=== PATIENT | male | born 1940 | race Caucasian/White ===

== ENCOUNTER 2017-03-08 13:47 | Emergency (ER) | payer MEDICARE, BC ==
--- NOTE | 2017-03-08 14:37 | EDM.PDOC ---
[id number] [id number] [facility] Time Seen by Provider: 03/08/17 14:20 Source of Information: Reports: Patient, EMS, Family History Limitations: Reports: No limitations - History of Present Illness INITIAL COMMENTS - FREE TEXT/NARRATIVE: 68-year-old male was on the toilet this morning and developed a very intense lower abdominal pain while trying to have a bowel movement. He then became very lightheaded and dizzy and asked for help from his family. He became very pale and lightheaded and diaphoretic so they called the ambulance. In route he was stable and he now feels fine. Last evening he had a small amount of shoulder discomfort and this morning a headache but those have resolved. He just wants to go home. Onset: sudden Severity: mild Associated Symptoms: Reports: headaches (This morning), malaise, syncope, weakness. Denies: chest pain, cough, fever/chills, nausea/vomiting, shortness of breath - Related Data Allergies Allergy/AdvReac Type Severity Reaction Status Date / Time morphine Allergy Severe Shortness Verified 07/18/16 07:31 of Breath Home Meds: Home Meds Clopidogrel [Plavix] 75 mg PO DAILY 09/14/13 [History] Doxazosin Mesylate 4 mg PO DAILY 09/14/13 [History] FLUoxetine HCl [Fluoxetine HCl] 40 mg PO DAILY 09/14/13 [History] Finasteride [Proscar] 5 mg PO DAILY 09/14/13 [History] Furosemide 20 mg PO DAILY 09/14/13 [History] Lisinopril 2.5 mg PO DAILY 09/14/13 [History] Omeprazole 20 mg PO BID 09/14/13 [History] Tamsulosin HCl 0.4 mg PO DAILY 09/14/13 [History] amLODIPine [Norvasc] 5 mg PO BID 09/14/13 [History] ALPRAZolam [Xanax] 0.25 mg PO TID 30 Days 06/03/14 [Rx] Amantadine [Symmetrel 50 MG/5 ML] 100 mg PO DAILY #2 ml 06/03/14 [Rx] Pramipexole [Mirapex] 0.25 mg PO BEDTIME #2 tab 06/03/14 [Rx] Divalproex Sodium 250 mg PO BID 02/02/15 [History] Carbidopa/Levodopa [Carbidopa-Levo ER 25-100] 1 each PO DAILY 02/04/15 [History] Albuterol Sulfate [Ventolin Hfa] 2 puff INH Q4H PRN 07/14/16 [History] Diazepam [Valium] 5 mg PO Q8H PRN 07/14/16 [History] Docusate Sodium/Sennosides [Senokot-S] 2 tab PO BID PRN 07/14/16 [History] Dutasteride [Avodart] 0.5 mg PO DAILY 07/14/16 [History] Gabapentin [Neurontin] 600 mg PO BID 07/14/16 [History] Simvastatin [Zocor] 40 mg PO DAILY 07/14/16 [History] Solifenacin [Vesicare] 5 mg PO BEDTIME 07/14/16 [History] oxyCODONE 15 mg PO Q6H PRN 07/14/16 [History] Past Medical History HEENT History: Reports: Allergic rhinitis, Hard of hearing, Other (see below) Other HEENT History: difficulty swallowing, tinnitis Cardiovascular History: Reports: Arrhythmia, Bypass, Hypertension Respiratory History: Reports: Asthma Genitourinary History: Reports: Prostate disorder, Renal disease Musculoskeletal History: Reports: Other (see below) Other Musculoskeletal History: "muscle cramps and spasms" Neurological History: Reports: CVA, Headaches, chronic, Parkinson's Psychiatric History: Reports: Anxiety, Depression - Infectious Disease History Infectious Disease History: Reports: Chicken pox, Measles, Mumps - Past Surgical History HEENT Surgical History: Reports: Cataract surgery, Tonsillectomy Cardiovascular Surgical History: Reports: Coronary artery bypass GI Surgical History: Reports: Appendectomy, Cholecystectomy, Colonoscopy, Hernia , inguinal Musculoskeletal Surgical History: Reports: Knee replacement Social & Family History - Family History Family Medical History: Noncontributory - Tobacco Use Smoking Status *Q: Current Every Day Smoker Years of Tobacco use: 15 Packs/Tins Daily: 0.5 Used Tobacco, but Quit: No Month Tobacco Last Used: 05/28/14 Second Hand Smoke Exposure: No - Caffeine Use Caffeine Use: Reports: Coffee - Alcohol Use Days Per Week of Alcohol Use: 0 - Recreational Drug Use Recreational Drug Use: No ED ROS GENERAL - Review of Systems Review Of Systems: See Below Constitutional: Reports: malaise, weakness. Denies: fever, chills HEENT: Reports: No symptoms Respiratory: Denies: Shortness of Breath, Cough Cardiovascular: Reports: Chest pain (He had an upper left anterior chest and shoulder discomfort last evening) GI/Abdominal: Reports: Abdominal pain (Lower abdomen, very sharp intense pain during a bowel movement. He has some chronic recurring right lower quadrant pain from a "hernia") : Reports: no symptoms Skin: Reports: pallor, diaphoresis Neurological: Reports: Headache Psychiatric: Reports: No symptoms ED EXAM, GENERAL - Physical Exam Exam: See Below Exam Limited By: No limitations General Appearance: alert, no apparent distress Eye Exam: bilateral eye: normal inspection Neck: normal inspection Respiratory/Chest: no respiratory distress, lungs clear Cardiovascular: regular rate, rhythm GI/Abdominal: Soft, Tender (He does have a small amount of tenderness to palpation across the lower abdomen but no guarding) Neurological: alert, oriented Psychiatric: normal affect, normal mood Skin Exam: Warm, Dry Course - Vital Signs Last Recorded V/S: Last Vital Signs Temp 97.3 F 03/08/17 13:58 Pulse 55 L 03/08/17 15:26 Resp 12 03/08/17 15:26 BP 164/84 H 03/08/17 15:26 Pulse Ox 94 L 03/08/17 15:26 - Orders/Labs/Meds Labs: Laboratory Tests 03/08/17 03/08/17 Range/Units 14:33 14:33 WBC 8.3 (4.5-11.0) K/uL RBC 4.03 L (4.30-5.90) M/uL Hgb 11.8 L (12.0-15.0) g/dL Hct 35.9 L (40.0-54.0) % MCV 89 (80-98) fL MCH 29 (27-31) pg MCHC 33 (32-36) % Plt Count 241 (150-400) K/uL Neut % (Auto) 70 H (36-66) % Lymph % (Auto) 18 L (24-44) % [place] % (Auto) 9 H (2-6) % Eos % (Auto) 3 (2-4) % Baso % (Auto) 0 (0-1) % Sodium 134 L (140-148) mmol/L Potassium 3.8 (3.6-5.2) mmol/L Chloride 102 (100-108) mmol/L Carbon Dioxide 27 (21-32) mmol/L Anion Gap 8.8 (5.0-14.0) mmol/L BUN 33 H (7-18) mg/dL Creatinine 1.7 H (0.8-1.3) mg/dL Est Cr Clr Drug Dosing 37.07 mL/min Estimated GFR (MDRD) 39 L (>60) Glucose 117 H (74-106) mg/dL Calcium 7.9 L (8.5-10.1) mg/dL Total Bilirubin 0.4 (0.2-1.0) mg/dL AST 18 (15-37) U/L ALT 15 (12-78) U/L Alkaline Phosphatase 59 (46-116) U/L Troponin I < 0.017 (0.000-0.056) ng/mL Total Protein 6.1 L (6.4-8.2) g/dL Albumin 3.2 L (3.4-5.0) g/dL Globulin 2.9 (2.3-3.5) g/dL Albumin/Globulin Ratio 1.1 L (1.2-2.2) - Re-Assessments/Exams Free Text/Narrative Re-Assessment/Exam: 03/08/17 14:36 EMS EKG was reassuring. I explained to the patient he likely had a vasovagal episode but a CBC CMP and troponin were obtained while the patient was being observed. 03/08/17 15:26 He remained asymptomatic and labs were reassuring. Troponin was 0. His GFR was only 39 which is a small worsening for depression kidney function but got a significant change. He ambulated without difficulty and was discharged with a vasovagal near syncopal diagnosis. Departure - Departure Time of Disposition: 15:44 Disposition: Home, Self-Care 01 Condition: good Clinical Impression: Vasovagal near syncope, Abdominal pain, recurrent Chronic renal insufficiency Qualifiers: Chronic kidney disease stage: stage 2 (mild) Qualified Code(s): N18.2 - Chronic kidney disease, stage 2 (mild) - Discharge Information Instructions: Vasovagal Syncope, Adult Referrals: Dallas Dorantes MD [Primary Care Provider] - Forms: ED Department Discharge Care Plan Goals: Continue your regular medications and increase activity and diet as tolerated. Return at any time if you feel you are worsening or have other concerns.
[2017-03-08 15:43] VITALS: BP 164/84
== END 2017-03-08 15:35 | disposition home or self-care (01) ==
LOC: JP.ED 13:47
DX: R55 Syncope and collapse (principal); R10.30 Lower abdominal pain, unspecified; I12.9 Hypertensive chronic kidney disease with stage 1 through stage 4 chronic kidney disease, or unspecified chronic kidney disease; N18.2 Chronic kidney disease, stage 2 (mild); F41.9 Anxiety disorder, unspecified; F32.9 Major depressive disorder, single episode, unspecified; F17.210 Nicotine dependence, cigarettes, uncomplicated; J45.909 Unspecified asthma, uncomplicated; Z79.899 Other long term (current) drug therapy; Z98.49 Cataract extraction status, unspecified eye; Z98.890 Other specified postprocedural states; Z88.5 Allergy status to narcotic agent
CPT/HCPCS: 36415; 80053; 84484; 85025; 99284

== ENCOUNTER 2017-03-25 18:21 | Emergency (ER) | payer MEDICARE, BC ==
[2017-03-25] MEDS ORDERED: Sodium Chloride 0.9% 10 ML Syringe FLUSH PRN (19:35)
[2017-03-25] MEDS ORDERED: Lidocaine 2% Jelly 10 ML Urojet MUCMEM ONE (20:08)
[2017-03-25] MEDS ORDERED: Sodium Chloride 0.9% 1,000 ML IV SCH (21:30)
[2017-03-25 21:38] VITALS: BP 142/75
[2017-03-25] MEDS ORDERED: Iopamidol 612 MG/ML 100 ML Bottle IV STA (21:56)
[2017-03-25] MEDS ORDERED: oxyCODONE 5 MG Tab PO ONE (22:57)
[2017-03-25] MEDS ORDERED: cefTRIAXone 1 GM in Sodium Chloride 0.9% 50 ML IV ONE (23:51)
--- NOTE | 2017-03-26 01:18 | EDM.PDOC ---
ED HPI GENERAL MEDICAL PROBLEM - General Chief Complaint: General Stated Complaint: IN SEVER PAIN Time Seen by Provider: 03/25/17 19:36 Source of Information: Reports: Patient History Limitations: Reports: No Limitations - History of Present Illness INITIAL COMMENTS - FREE TEXT/NARRATIVE: This patient's complaints were not entirely clear. He does seem to have some fever and says he just doesn't feel very good today. He's had a cough for a couple of weeks. He also has a history of some difficulties urinating but doesn 't complain of burning on urination. He does complain of some pain in the right lower quadrant around an old hernia incision. He denies any chest pain or palpitations there's no shortness of breath. The cough is nonproductive no problems with eyes ears nose or throat at other times he says he feels pretty good Generalized Pain Score (Numeric/FACES): 6 - Related Data Allergies Allergy/AdvReac Type Severity Reaction Status Date / Time morphine Allergy Severe Shortness Verified 07/18/16 07:31 of Breath Home Meds: Home Meds Clopidogrel [Plavix] 75 mg PO DAILY 09/14/13 [History] Doxazosin Mesylate 4 mg PO DAILY 09/14/13 [History] FLUoxetine HCl [Fluoxetine HCl] 40 mg PO DAILY 09/14/13 [History] Finasteride [Proscar] 5 mg PO DAILY 09/14/13 [History] Furosemide 20 mg PO DAILY 09/14/13 [History] Lisinopril 2.5 mg PO DAILY 09/14/13 [History] Omeprazole 20 mg PO BID 09/14/13 [History] Tamsulosin HCl 0.4 mg PO DAILY 09/14/13 [History] amLODIPine [Norvasc] 5 mg PO BID 09/14/13 [History] ALPRAZolam [Xanax] 0.25 mg PO TID 30 Days 06/03/14 [Rx] Amantadine [Symmetrel 50 MG/5 ML] 100 mg PO DAILY #2 ml 06/03/14 [Rx] Pramipexole [Mirapex] 0.25 mg PO BEDTIME #2 tab 06/03/14 [Rx] Divalproex Sodium 250 mg PO BID 02/02/15 [History] Carbidopa/Levodopa [Carbidopa-Levo ER 25-100] 1 each PO DAILY 02/04/15 [History] Albuterol Sulfate [Ventolin Hfa] 2 puff INH Q4H PRN 07/14/16 [History] Diazepam [Valium] 5 mg PO Q8H PRN 07/14/16 [History] Docusate Sodium/Sennosides [Senokot-S] 2 tab PO BID PRN 07/14/16 [History] Dutasteride [Avodart] 0.5 mg PO DAILY 07/14/16 [History] Gabapentin [Neurontin] 600 mg PO BID 07/14/16 [History] Simvastatin [Zocor] 40 mg PO DAILY 07/14/16 [History] Solifenacin [Vesicare] 5 mg PO BEDTIME 07/14/16 [History] oxyCODONE 15 mg PO Q6H PRN 07/14/16 [History] Past Medical History HEENT History: Reports: Allergic Rhinitis, Hard of Hearing, Other (See Below) Other HEENT History: difficulty swallowing, tinnitis Cardiovascular History: Reports: Arrhythmia, Bypass, Hypertension Respiratory History: Reports: Asthma Genitourinary History: Reports: Prostate Disorder, Renal Disease Musculoskeletal History: Reports: Other (See Below) Other Musculoskeletal History: "muscle cramps and spasms" Neurological History: Reports: CVA, Headaches, Chronic, Parkinson's Psychiatric History: Reports: Anxiety, Depression - Infectious Disease History Infectious Disease History: Reports: Chicken Pox, Measles, Mumps - Past Surgical History HEENT Surgical History: Reports: Cataract Surgery, Tonsillectomy Cardiovascular Surgical History: Reports: Coronary Artery Bypass GI Surgical History: Reports: Appendectomy, Cholecystectomy, Colonoscopy, Hernia , Inguinal Musculoskeletal Surgical History: Reports: Knee Replacement Social & Family History - Family History Family Medical History: Noncontributory - Tobacco Use Smoking Status *Q: Current Every Day Smoker Years of Tobacco use: 15 Packs/Tins Daily: 0.5 Used Tobacco, but Quit: No Month Tobacco Last Used: 05/28/14 Second Hand Smoke Exposure: No - Caffeine Use Caffeine Use: Reports: Coffee - Alcohol Use Days Per Week of Alcohol Use: 0 - Recreational Drug Use Recreational Drug Use: No ED ROS GENERAL - Review of Systems Review Of Systems: See Below Constitutional: Reports: Fever HEENT: Reports: No Symptoms Respiratory: Reports: Cough Cardiovascular: Reports: No Symptoms Endocrine: Reports: No Symptoms GI/Abdominal: Reports: Abdominal Pain : Reports: Other (Doesn't always empty his bladder according to family members ) Musculoskeletal: Reports: No Symptoms Skin: Reports: No Symptoms Neurological: Reports: No Symptoms Psychiatric: Reports: No Symptoms ED EXAM, GENERAL - Physical Exam Exam: See Below Exam Limited By: No Limitations General Appearance: Alert, WD/WN, No Apparent Distress (He's happy smiling and talkative) Eye Exam: Bilateral Eye: Normal Inspection, PERRL Ears: Normal External Exam, Normal TMs Nose: Normal Inspection Throat/Mouth: Normal Oropharynx Head: Atraumatic Neck: Normal Inspection Respiratory/Chest: Lungs Clear (A little difficult to hear his lungs because it' s hard for him to sit up) Cardiovascular: Normal Peripheral Pulses, Regular Rate, Rhythm, No Murmur GI/Abdominal: Normal Bowel Sounds, Other (There seems to be an enlarged bladder. It is mildly tender. Rest of the abdomen is negative) Back Exam: Normal Inspection Extremities: Normal Inspection Neurological: Alert, Oriented, CN II-XII Intact, No Motor/Sensory Deficits Psychiatric: Normal Affect Skin Exam: Warm, Dry Course - Vital Signs Last Recorded V/S: Last Vital Signs Temp 38.3 C H 03/25/17 21:37 Pulse 80 03/25/17 21:37 Resp 18 03/25/17 20:48 BP 142/75 H 03/25/17 21:37 Pulse Ox 92 L 03/25/17 21:37 - Orders/Labs/Meds Orders: Active Orders 24 hr Category Date Time Status Goode Catheter Insertion [Insert Urinary Catheter] [OM. Care 03/25/17 20:15 Ordered PC] Q24H Urinary Catheter Assessment [RC] ASDIRECTED Care 03/25/17 20:08 Active Abdomen Pelvis w Cont [CT] Stat Exams 03/25/17 21:11 Taken Chest 1V Frontal [CR] Urgent Exams 03/25/17 19:34 Taken CULTURE BLOOD [BC] Urgent Lab 03/25/17 19:40 Received CULTURE BLOOD [BC] Urgent Lab 03/25/17 19:50 Received Blood Culture x2 Reflex Set [OM.PC] Urgent Oth 03/25/17 19:35 Ordered Saline Lock Insert [OM.PC] Urgent Oth 03/25/17 19:34 Ordered Labs: Laboratory Tests 03/25/17 03/25/17 03/25/17 Range/Units 19:34 19:40 19:40 WBC 14.7 H (4.5-11.0) K/uL RBC 4.02 L (4.30-5.90) M/uL Hgb 11.8 L (12.0-15.0) g/dL Hct 35.5 L (40.0-54.0) % MCV 88 (80-98) fL MCH 29 (27-31) pg MCHC 33 (32-36) % Plt Count 444 H (150-400) K/uL Neut % (Auto) 77 H (36-66) % Lymph % (Auto) 11 L (24-44) % [place] % (Auto) 10 H (2-6) % Eos % (Auto) 2 (2-4) % Baso % (Auto) 0 (0-1) % Sodium 137 L (140-148) mmol/L Potassium 4.3 (3.6-5.2) mmol/L Chloride 100 (100-108) mmol/L Carbon Dioxide 27 (21-32) mmol/L Anion Gap 14.3 H (5.0-14.0) mmol/L BUN 25 H (7-18) mg/dL Creatinine 1.7 H (0.8-1.3) mg/dL Est Cr Clr Drug Dosing 38.14 mL/min Estimated GFR (MDRD) 39 L (>60) Glucose 98 (74-106) mg/dL Lactic Acid 1.3 (0.4-2.0) mmol/L Calcium 8.4 L (8.5-10.1) mg/dL Total Bilirubin 0.3 (0.2-1.0) mg/dL AST 13 L (15-37) U/L ALT 14 (12-78) U/L Alkaline Phosphatase 70 (46-116) U/L Total Protein 7.3 (6.4-8.2) g/dL Albumin 2.7 L (3.4-5.0) g/dL Globulin 4.6 H (2.3-3.5) g/dL Albumin/Globulin Ratio 0.6 L (1.2-2.2) Urine Color Urine Appearance Urine pH (4.5-8.0) Ur Specific [place] (1.008-1.030) Urine Protein (NEGATIVE) mg/dL Urine Glucose (UA) (NEGATIVE) mg/dL Urine Ketones (NEGATIVE) mg/dL Urine Occult Blood (NEGATIVE) Urine Nitrite (NEGAITVE) Urine Bilirubin (NEGATIVE) Urine Urobilinogen (NORMAL) mg/dL Ur Leukocyte Esterase (NEGATIVE) Urine RBC (0-5) Urine WBC (0-5) Ur Epithelial Cells Amorphous Sediment Urine Bacteria Urine Mucus 03/25/17 Range/Units 20:47 WBC (4.5-11.0) K/uL RBC (4.30-5.90) M/uL Hgb (12.0-15.0) g/dL Hct (40.0-54.0) % MCV (80-98) fL MCH (27-31) pg MCHC (32-36) % Plt Count (150-400) K/uL Neut % (Auto) (36-66) % Lymph % (Auto) (24-44) % [place] % (Auto) (2-6) % Eos % (Auto) (2-4) % Baso % (Auto) (0-1) % Sodium (140-148) mmol/L Potassium (3.6-5.2) mmol/L Chloride (100-108) mmol/L Carbon Dioxide (21-32) mmol/L Anion Gap (5.0-14.0) mmol/L BUN (7-18) mg/dL Creatinine (0.8-1.3) mg/dL Est Cr Clr Drug Dosing mL/min Estimated GFR (MDRD) (>60) Glucose (74-106) mg/dL Lactic Acid (0.4-2.0) mmol/L Calcium (8.5-10.1) mg/dL Total Bilirubin (0.2-1.0) mg/dL AST (15-37) U/L ALT (12-78) U/L Alkaline Phosphatase (46-116) U/L Total Protein (6.4-8.2) g/dL Albumin (3.4-5.0) g/dL Globulin (2.3-3.5) g/dL Albumin/Globulin Ratio (1.2-2.2) Urine Color Yellow Urine Appearance Clear Urine pH 5.0 (4.5-8.0) Ur Specific [place] 1.015 (1.008-1.030) Urine Protein Negative (NEGATIVE) mg/dL Urine Glucose (UA) Normal (NEGATIVE) mg/dL Urine Ketones Negative (NEGATIVE) mg/dL Urine Occult Blood Negative (NEGATIVE) Urine Nitrite Negative (NEGAITVE) Urine Bilirubin Negative (NEGATIVE) Urine Urobilinogen Normal (NORMAL) mg/dL Ur Leukocyte Esterase Negative (NEGATIVE) Urine RBC 0-5 (0-5) Urine WBC 0-5 (0-5) Ur Epithelial Cells Rare Amorphous Sediment Not seen Urine Bacteria Few Urine Mucus Not seen Meds: Medications Discontinued Medications Generic Name Dose Route Start Last Admin Trade Name Freq PRN Reason Stop Dose Admin Sodium Chloride 1,000 mls @ 999 mls/hr 03/25/17 21:30 03/25/17 21:36 Normal Saline IV 999 mls/hr ASDIRECTED FLOYD Administration Sodium Chloride 77 mls @ 3.7 mls/sec 03/25/17 21:56 03/25/17 22:11 Normal Saline IV 03/25/17 21:57 3.7 mls/sec ASDIRECTED STA Administration Ceftriaxone Sodium 1 gm/ 50 mls @ 100 mls/hr 03/25/17 23:51 03/26/17 00:14 Sodium Chloride IV 03/26/17 00:20 100 mls/hr ONETIME ONE Administration Iopamidol 100 ml 03/25/17 21:56 03/25/17 22:11 Isovue-300 (61%) IV 03/25/17 21:57 100 ml . DIRECTED STA Administration Lidocaine HCl 10 ml 03/25/17 20:08 03/25/17 20:27 Xylocaine 2% Jelly MUCMEM 03/25/17 20:09 10 ml ONETIME ONE Administration Oxycodone HCl 10 mg 03/25/17 22:57 03/25/17 23:05 Oxycodone PO 03/25/17 22:58 10 mg ONETIME ONE Administration Sodium Chloride 10 ml 03/25/17 19:35 03/25/17 19:47 Saline Flush FLUSH 10 ml ASDIRECTED PRN Administration Keep Vein Open - Radiology Interpretation Free Text/Narrative:: Chest x-ray shows slightly enlarged heart normal lung markings left base is not well-seen. Patient was unable to stand for a two-view x-ray. CT results are as follows - Re-Assessments/Exams Free Text/Narrative Re-Assessment/Exam: 05/28/17 06:46 The bladder was scanned and only showed approximately 300 mL. I palpated the abdomen afterwards and there still seemed to be some mass in the lower abdomen but appear to be tender. Because of his fever and slightly elevated white count it was decided to go ahead and do an abdominal CT on him. The CT showed no intra-abdominal pathology and of normal size bladder however there is some pneumonia at the base of the left lung. Free Text/Narrative Re-Assessment/Exam: 03/26/17 06:48 Discussion was held with the radiologist regarding the use of contrast and he agreed that contrast is probably indicated in this patient who is febrile with abdominal tenderness. His GFR is 39 which is borderline. Therefore the contrast was changed to Visipaque with a 20% dosage reduction and the patient was hydrated with 1 L of normal saline. After all labs and CT results were back the patient was given Rocephin 1 g IV. A discussion was held with his family and they believe that they can take care of him at home And the patient does want to go home so will start him on an oral antibiotic and discharge him Departure - Departure Time of Disposition: 01:16 Disposition: Home, Self-Care 01 Condition: fair Clinical Impression: Pneumonia - Discharge Information Instructions: Community-Acquired Pneumonia, Adult Referrals: Dallas Dorantes MD [Primary Care Provider] - Forms: ED Department Discharge Additional Instructions: The tests show that you have pneumonia at the bottom of your left lung. Take Augmentin 875 mg twice daily for [address] if no better in 3 days. Return to the ER at any time if worse. Otherwise continue all of your previous medications. - My Orders Last 24 Hours: My Active Orders 03/25/17 19:34 Chest 1V Frontal [CR] Urgent Saline Lock Insert [OM.PC] Urgent 03/25/17 19:35 Blood Culture x2 Reflex Set [OM.PC] Urgent 03/25/17 19:40 CULTURE BLOOD [BC] Urgent 03/25/17 19:50 CULTURE BLOOD [BC] Urgent 03/25/17 20:08 Urinary Catheter Assessment [RC] ASDIRECTED 03/25/17 20:15 Goode Catheter Insertion [Insert Urinary Catheter] [OM.PC] Q24H 03/25/17 21:11 Abdomen Pelvis w Cont [CT] Stat - Assessment/Plan Last 24 Hours: My Active Orders 03/25/17 19:34 Chest 1V Frontal [CR] Urgent Saline Lock Insert [OM.PC] Urgent 03/25/17 19:35 Blood Culture x2 Reflex Set [OM.PC] Urgent 03/25/17 19:40 CULTURE BLOOD [BC] Urgent 03/25/17 19:50 CULTURE BLOOD [BC] Urgent 03/25/17 20:08 Urinary Catheter Assessment [RC] ASDIRECTED 03/25/17 20:15 Goode Catheter Insertion [Insert Urinary Catheter] [OM.PC] Q24H 03/25/17 21:11 Abdomen Pelvis w Cont [CT] Stat
--- NOTE | 2017-03-28 09:03 | CR ---
Sternotomy. Pulmonary vasculature within normal limits. Patchy opacity left lung base is new compare d to prior and concerning for infiltrate. Recommend radiographic follow-up.
== END 2017-03-26 01:35 | disposition home or self-care (01) ==
LOC: JP.ED 18:21
DX: J18.9 Pneumonia, unspecified organism (principal); I10 Essential (primary) hypertension; J45.909 Unspecified asthma, uncomplicated; F41.9 Anxiety disorder, unspecified; F32.9 Major depressive disorder, single episode, unspecified; G20 Parkinson's disease; F17.210 Nicotine dependence, cigarettes, uncomplicated; Z98.49 Cataract extraction status, unspecified eye; Z95.1 Presence of aortocoronary bypass graft; Z90.49 Acquired absence of other specified parts of digestive tract; Z96.659 Presence of unspecified artificial knee joint; Z98.890 Other specified postprocedural states; Z79.02 Long term (current) use of antithrombotics/antiplatelets; Z79.899 Other long term (current) drug therapy; Z88.5 Allergy status to narcotic agent
CPT/HCPCS: 36415; 71010; 74177; 80053; 81001; 83605; 85025; 87040; 87804; 96361; 96365; 99284; A9270; J0696; J7030; J7040; J7050; Q9967

== ENCOUNTER 2017-10-06 09:37 | Observation (INO) | payer MEDICARE, BC ==
[2017-10-06] MEDS ORDERED: Adenosine 6 MG/2 ML SDV IVPUSH ONE ×2 (09:51→09:53)
[2017-10-06] MEDS ORDERED: Diltiazem 25 MG/5 ML SDV IV ONE (09:55)
[2017-10-06] MEDS ORDERED: Diltiazem 100 MG AdvVial ONE (09:57)
[2017-10-06] MEDS ORDERED: Sodium Chloride 0.9% 100 ML ONE (09:57)
[2017-10-06] MEDS ORDERED: HYDROmorphone 1 MG/ML Syringe ONE (09:57)
[2017-10-06] MEDS ORDERED: HYDROmorphone 1 MG/ML Syringe IV ONE (10:02)
[2017-10-06] MEDS ORDERED: Diltiazem 100 MG in Sodium Chloride 0.9% 100 ML IV SCH (10:04)
--- NOTE | 2017-10-06 10:21 | EDM.PDOC ---
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, IV/IO, Nitroglycerin Left Chest Pain Score (Numeric/FACES): 2 - Related Data Allergies Allergy/AdvReac Type Severity Reaction Status Date / Time morphine Allergy Severe Shortness Verified 10/06/17 10:06 of Breath Home Meds: Home Meds Clopidogrel [Plavix] 75 mg PO DAILY 09/14/13 [History] Doxazosin Mesylate 4 mg PO DAILY 09/14/13 [History] FLUoxetine HCl [Fluoxetine HCl] 40 mg PO DAILY 09/14/13 [History] Finasteride [Proscar] 5 mg PO DAILY 09/14/13 [History] Furosemide 20 mg PO DAILY 09/14/13 [History] Lisinopril 2.5 mg PO DAILY 09/14/13 [History] Omeprazole 20 mg PO BID 09/14/13 [History] Tamsulosin HCl 0.4 mg PO DAILY 09/14/13 [History] amLODIPine [Norvasc] 5 mg PO BID 09/14/13 [History] ALPRAZolam [Xanax] 0.25 mg PO TID 30 Days tablet 06/03/14 [Rx] Amantadine [Symmetrel 50 MG/5 ML] 100 mg PO DAILY #2 ml 06/03/14 [Rx] Pramipexole [Mirapex] 0.25 mg PO BEDTIME #2 tab 06/03/14 [Rx] Divalproex Sodium 250 mg PO BID 02/02/15 [History] Carbidopa/Levodopa [Carbidopa-Levo ER 25-100] 1 each PO DAILY 02/04/15 [History] Albuterol Sulfate [Ventolin Hfa] 2 puff INH Q4H PRN 07/14/16 [History] Diazepam [Valium] 5 mg PO Q8H PRN 07/14/16 [History] Docusate Sodium/Sennosides [Senokot-S] 2 tab PO BID PRN 07/14/16 [History] Dutasteride [Avodart] 0.5 mg PO DAILY 07/14/16 [History] Gabapentin [Neurontin] 600 mg PO BID 07/14/16 [History] Simvastatin [Zocor] 40 mg PO DAILY 07/14/16 [History] Solifenacin [Vesicare] 5 mg PO BEDTIME 07/14/16 [History] oxyCODONE 15 mg PO Q6H PRN 07/14/16 [History] Past Medical History HEENT History: Reports: Allergic Rhinitis, Hard of Hearing, Other (See Below) Other HEENT History: difficulty swallowing, tinnitis Cardiovascular History: Reports: Arrhythmia, Bypass, Hypertension Respiratory History: Reports: Asthma Genitourinary History: Reports: Prostate Disorder, Renal Disease Musculoskeletal History: Reports: Other (See Below) Other Musculoskeletal History: "muscle cramps and spasms" Neurological History: Reports: CVA, Headaches, Chronic, Parkinson's Psychiatric History: Reports: Anxiety, Depression - Infectious Disease History Infectious Disease History: Reports: Chicken Pox, Measles, Mumps - Past Surgical History HEENT Surgical History: Reports: Cataract Surgery, Tonsillectomy Cardiovascular Surgical History: Reports: Coronary Artery Bypass GI Surgical History: Reports: Appendectomy, Cholecystectomy, Colonoscopy, Hernia , Inguinal Musculoskeletal Surgical History: Reports: Knee Replacement Social & Family History - Family History Family Medical History: Noncontributory - Tobacco Use Smoking Status *Q: Current Every Day Smoker Years of Tobacco use: 15 Packs/Tins Daily: 0.5 Used Tobacco, but Quit: No Month Tobacco Last Used: 05/28/14 Second Hand Smoke Exposure: No - Caffeine Use Caffeine Use: Reports: Coffee - Alcohol Use Days Per Week of Alcohol Use: 0 - Recreational Drug Use Recreational Drug Use: No ED ROS GENERAL - Review of Systems Review Of Systems: See Below ED EXAM, GENERAL - Physical Exam Exam: See Below Exam Limited By: No Limitations General Appearance: Alert, No Apparent Distress Eye Exam: Bilateral Eye: PERRL Ears: Normal External Exam Throat/Mouth: Normal Inspection Head: Atraumatic Neck: Normal Inspection Respiratory/Chest: No Respiratory Distress, Lungs Clear, No Accessory Muscle Use. No: Wheezing Cardiovascular: No JVD, No Murmur, Tachycardia Peripheral Pulses: 2+: Dorsalis Pedis (L), Dorsalis Pedis (R) GI/Abdominal: Normal Bowel Sounds, Soft, Non-Tender, No Distention Back Exam: Normal Inspection, Full Range of Motion Extremities: Normal Inspection. No: Increased Warmth Neurological: Alert, Oriented, Normal Cognition Psychiatric: Normal Affect, Normal Mood Skin Exam: Warm, Dry EKG INTERPRETATION EKG Date: 10/06/17 Rhythm: A-Fib Rate (Beats/Min): 135 [place]: RAD-Right [place] Deviation P-Wave: Absent QRS: RBBB ST-T: Normal QT: Normal EKG Interpretation Comments: Image personally reviewed Course - Vital Signs Last Recorded V/S: Last Vital Signs Temp 98.1 F 10/06/17 10:14 Pulse 84 10/06/17 10:14 Resp 18 10/06/17 10:14 BP 134/73 10/06/17 10:14 Pulse Ox 96 10/06/17 10:14 - Orders/Labs/Meds Orders: Active Orders 24 hr Category Date Time Status Patient Status Manage Transfer [TRANSFER] Routine ADT 10/06/17 12:38 Active Diltiazem [Cardizem] 100 mg Med 10/06/17 10:04 Active Sodium Chloride 0.9% [Normal Saline] 100 ml IV TITRATE Resuscitation Status Routine Resus Stat 10/06/17 12:39 Ordered Medication Orders Diltiazem HCl 100 mg/ Sodium (Chloride) 100 mls @ 5 mls/hr IV TITRATE FLOYD; 5 MG /HR PRN Reason: Protocol Labs: Laboratory Tests 10/06/17 10/06/17 10/06/17 Range/Units 09:57 09:57 09:57 WBC 7.5 (4.5-11.0) K/uL RBC 4.52 (4.30-5.90) M/uL Hgb 13.2 (12.0-15.0) g/dL Hct 39.5 L (40.0-54.0) % MCV 87 (80-98) fL MCH 29 (27-31) pg MCHC 33 (32-36) % Plt Count 270 (150-400) K/uL Neut % (Auto) 61 (36-66) % Lymph % (Auto) 24 (24-44) % [place] % (Auto) 10 H (2-6) % Eos % (Auto) 4 (2-4) % Baso % (Auto) 1 (0-1) % PT 10.8 (9.5-12.0) sec INR 1.01 (0.80-1.20) APTT 28.5 (27.0-36.0) sec Sodium 143 (140-148) mmol/L Potassium 3.2 L (3.6-5.2) mmol/L Chloride 108 (100-108) mmol/L Carbon Dioxide 24 (21-32) mmol/L Anion Gap 14.2 H (5.0-14.0) mmol/L BUN 19 H (7-18) mg/dL Creatinine 1.5 H (0.8-1.3) mg/dL Est Cr Clr Drug Dosing 43.23 mL/min Estimated GFR (MDRD) 45 L (>60) Glucose 113 H (74-106) mg/dL Calcium 9.1 (8.5-10.1) mg/dL Total Bilirubin 0.5 D (0.2-1.0) mg/dL AST 18 (15-37) U/L ALT 14 (12-78) U/L Alkaline Phosphatase 69 (46-116) U/L CK-MB (CK-2) 4.1 H (0-3.6) mg/mL Troponin I 0.033 (0.000-0.056) ng/mL Total Protein 6.5 (6.4-8.2) g/dL Albumin 3.3 L (3.4-5.0) g/dL Globulin 3.2 (2.3-3.5) g/dL Albumin/Globulin Ratio 1.0 L (1.2-2.2) Meds: Medications Generic Name Dose Route Start Last Admin Trade Name Freq PRN Reason Stop Dose Admin Diltiazem HCl 100 mg/ Sodium 100 mls @ 5 mls/hr 10/06/17 10:04 Chloride IV TITRATE FLOYD Protocol 5 MG/HR Discontinued Medications Generic Name Dose Route Start Last Admin Trade Name Freq PRN Reason Stop Dose Admin Adenosine 6 mg 10/06/17 09:51 Adenocard IVPUSH 10/06/17 09:52 ONETIME ONE Adenosine 12 mg 10/06/17 09:53 Adenocard IVPUSH 10/06/17 09:54 ONETIME ONE Diltiazem HCl Confirm 10/06/17 09:57 Cardizem Administered 10/06/17 09:58 Dose 100 mg .ROUTE .STK-MED ONE Diltiazem HCl 25 mg 10/06/17 09:55 Diltiazem IV 10/06/17 09:56 ONETIME ONE Hydromorphone HCl Confirm 10/06/17 09:57 Dilaudid Administered 10/06/17 09:58 Dose 1 mg .ROUTE .STK-MED ONE Hydromorphone HCl 1 mg 10/06/17 10:02 Dilaudid IV 10/06/17 10:03 ONETIME ONE Sodium Chloride Confirm 10/06/17 09:57 Normal Saline Administered 10/06/17 09:58 Dose 100 mls @ as directed .ROUTE .STK-MED ONE Departure - Departure Disposition: Admitted As Inpatient 64 Clinical Impression: SVT (supraventricular tachycardia) Referrals: PCP,Meir [Primary Care Provider] - Forms: ED Department Discharge - My Orders Last 24 Hours: My Active Orders 10/06/17 10:04 Diltiazem [Cardizem] 100 mg Sodium Chloride 0.9% [Normal Saline] 100 ml IV TITRATE - Assessment/Plan Last 24 Hours: My Active Orders 10/06/17 10:04 Diltiazem [Cardizem] 100 mg Sodium Chloride 0.9% [Normal Saline] 100 ml IV TITRATE <OfficerSalty - Last Filed: 10/06/17 12:59> ED HPI GENERAL MEDICAL PROBLEM - General Source of Information: Reports: Patient, EMS History Limitations: Reports: No Limitations - History of Present Illness INITIAL COMMENTS - FREE TEXT/NARRATIVE: 76-year-old gentleman presents emergency department today via EMS services, his was involved in a fall earlier this morning with head injury he was helping his sudden onset of chest pain and palpitations, EMS services were called brought to the emergency department for further evaluation, he does complain of shortness of breath as well as some nausea does have a known history of coronary artery disease status post coronary artery bypass grafting, he is a DNR/DNI Past Medical History Cardiovascular History: Reports: Arrhythmia, Bypass, CAD, High Cholesterol, Hypertension Respiratory History: Reports: Asthma Genitourinary History: Reports: Prostate Disorder, Renal Disease Musculoskeletal History: Reports: Other (See Below) Neurological History: Reports: CVA, Headaches, Chronic, Parkinson's Psychiatric History: Reports: Anxiety, Depression Social & Family History - Tobacco Use Smoking Status *Q: Current Every Day Smoker ED ROS GENERAL - Review of Systems Review Of Systems: See Below Constitutional: Reports: No Symptoms HEENT: Reports: No Symptoms Respiratory: Reports: Shortness of Breath Cardiovascular: Reports: Chest Pain, Dyspnea on Exertion, Palpitations GI/Abdominal: Reports: Nausea : Reports: No Symptoms Musculoskeletal: Reports: No Symptoms Skin: Reports: No Symptoms ED EXAM, GENERAL - Physical Exam Exam: See Below Exam Limited By: No Limitations General Appearance: Alert, Mild Distress Eye Exam: Bilateral Eye: Normal Inspection, PERRL Ears: Normal External Exam, Normal Canal, Hearing Grossly Normal, Normal TMs Nose: Normal Inspection Throat/Mouth: Normal Inspection, Normal Lips, Normal Teeth, Normal Gums, Normal Oropharynx, Normal Voice, No Airway Compromise Head: Atraumatic, Normocephalic Neck: Normal Inspection, Supple, Non-Tender, Full Range of Motion Respiratory/Chest: No Respiratory Distress, Lungs Clear, Normal Breath Sounds, No Accessory Muscle Use Cardiovascular: No JVD, No Murmur, Tachycardia GI/Abdominal: Normal Bowel Sounds, Soft, Non-Tender, No Distention Back Exam: Normal Inspection, Full Range of Motion Extremities: Normal Inspection Neurological: Alert, Oriented, Normal Cognition Skin Exam: Warm, Dry Departure - Departure Time of Disposition: 12:59 Condition: Fair - Assessment/Plan Plan: Assessment Acuity = acute Site and laterality = supraventricular tachycardia complicated in a patient with known history coronary artery disease, hypertension and dyslipidemia Etiology = unknown etiology Manifestations = none Location of injury = Home Lab values = CBC unremarkable, potassium low at 3.2 consistent hypokalemia creatinine elevated at 1.5 consistent chronic renal failure stage G IIIB CK-MB elevated at 4.1 probably related to SVT troponin normal limits at 0.033 albumin low at 3.3 consistent hypoalbuminemia chest x-ray shows no acute process EKG initial shows a supraventricular tachycardia 146 beats per minutes on monitor he was up into the 1 6170 range, EKG after chemical conversion reveals a sinus rhythm in the 70s he has a left axis deviation and poor R-wave progression no ST elevations or depressions Plan Because he was in SVT he would wax and wane with his responsiveness CODE BLUE was called for additional assistance paddles were placed on his chest 2 IVs were established with the additional help 6 mg of adenosine was pushed followed by normal saline this did slow the heart rate down unfortunately he went right back to 150 160 rate. Next 12 mg of adenosine was pushed with the same results. Next elected to proceed with Cardizem 25 mg bolus followed by Cardizem drip approximately 25% of the Cardizem was pushed in and he started to convert to a sinus rhythm following completion of the full bolus of Cardizem and a Cardizem drip he slow down to sinus rate in the 70s the Cardizem drip was then weaned off. Discussed case with hospitalist workers compensation examiner he agreed to, and evaluate the patient emergency department for further evaluation Patient was in agreement with the plan all questions were answered This note was dictated using Numerous voice recognition software please call with any questions.
--- NOTE | 2017-10-06 10:38 | CR ---
Chest 1V Frontal INDICATION: chest pain FINDINGS: Comparison 03/25/2017. Sternotomy. Opacity in the left lung base has resolved since prior ex am. No new focal infiltrate. Pacer pad in place. Exam otherwise negative.
--- NOTE | 2017-10-06 12:46 | PCM.HP ---
H&P History of Present Illness - General Date of Service: 10/06/17 Admit Problem/Dx: Admission Diagnosis/Problem Admission Diagnosis/Problem Atrial fibrillation with rapid ventricular response Source of Information: Patient, Provider History Limitations: Reports: No Limitations - History of Present Illness Initial Comments - Free Text/Narative: Francesco presented to the emergency room with moderately severe left-sided chest pressure that radiated to his left arm. He did not take anything at home to make the pain better but did receive aspirin and nitroglycerin in the ambulance which helped the pain slightly. Moving seems to make the pain worse. This feels a little different than his previous cardiac pain. The pain started this morning while he was trying to assist his who had fallen and bumped her head. He had some associated shortness of breath and palpitations. He had been feeling well prior to onset of symptoms this morning. No recent difficulties with fevers, cough or shortness of breath. No change in bowel or bladder habits. Workup in the emergency room revealed atrial fibrillation with a rapid ventricular response. He did receive adenosine 2 with very temporary rate slowing. He has received a dose of diltiazem with slowing of his heart rate and then eventually conversion to normal sinus rhythm. He will be admitted for observation and additional troponin measurements. Left Chest Pain Score (Numeric/FACES): 2 - Related Data Allergies/Adverse Reactions: Allergies Allergy/AdvReac Type Severity Reaction Status Date / Time morphine Allergy Severe Shortness Verified 10/06/17 10:06 of Breath Home Medications: Home Meds Clopidogrel [Plavix] 75 mg PO DAILY 09/14/13 [History] Doxazosin Mesylate 4 mg PO DAILY 09/14/13 [History] FLUoxetine HCl [Fluoxetine HCl] 40 mg PO DAILY 09/14/13 [History] Finasteride [Proscar] 5 mg PO DAILY 09/14/13 [History] Furosemide 20 mg PO DAILY 09/14/13 [History] Lisinopril 2.5 mg PO DAILY 09/14/13 [History] Omeprazole 20 mg PO BID 09/14/13 [History] Tamsulosin HCl 0.4 mg PO DAILY 09/14/13 [History] amLODIPine [Norvasc] 5 mg PO BID 09/14/13 [History] ALPRAZolam [Xanax] 0.25 mg PO TID 30 Days tablet 06/03/14 [Rx] Amantadine [Symmetrel 50 MG/5 ML] 100 mg PO DAILY #2 ml 06/03/14 [Rx] Pramipexole [Mirapex] 0.25 mg PO BEDTIME #2 tab 06/03/14 [Rx] Divalproex Sodium 250 mg PO BID 02/02/15 [History] Carbidopa/Levodopa [Carbidopa-Levo ER 25-100] 1 each PO DAILY 02/04/15 [History] Albuterol Sulfate [Ventolin Hfa] 2 puff INH Q4H PRN 07/14/16 [History] Diazepam [Valium] 5 mg PO Q8H PRN 07/14/16 [History] Docusate Sodium/Sennosides [Senokot-S] 2 tab PO BID PRN 07/14/16 [History] Dutasteride [Avodart] 0.5 mg PO DAILY 07/14/16 [History] Gabapentin [Neurontin] 600 mg PO BID 07/14/16 [History] Simvastatin [Zocor] 40 mg PO DAILY 07/14/16 [History] Solifenacin [Vesicare] 5 mg PO BEDTIME 07/14/16 [History] oxyCODONE 15 mg PO Q4H PRN 07/14/16 [History] Cyclobenzaprine [Flexeril] 10 mg PO TID PRN 10/06/17 [History] FLUoxetine [PROzac] 20 mg PO DAILY 10/06/17 [History] Past Medical History HEENT History: Reports: Allergic Rhinitis, Hard of Hearing, Other (See Below) Other HEENT History: difficulty swallowing, tinnitis Cardiovascular History: Reports: Arrhythmia, Bypass, CAD, High Cholesterol, Hypertension Respiratory History: Reports: Asthma Genitourinary History: Reports: Prostate Disorder, Renal Disease Musculoskeletal History: Reports: Other (See Below) Other Musculoskeletal History: "muscle cramps and spasms" Neurological History: Reports: CVA, Headaches, Chronic, Parkinson's Psychiatric History: Reports: Anxiety, Depression - Infectious Disease History Infectious Disease History: Reports: Chicken Pox, Measles, Mumps - Past Surgical History HEENT Surgical History: Reports: Cataract Surgery, Tonsillectomy Cardiovascular Surgical History: Reports: Coronary Artery Bypass GI Surgical History: Reports: Appendectomy, Cholecystectomy, Colonoscopy, Hernia , Inguinal Musculoskeletal Surgical History: Reports: Knee Replacement Social & Family History - Family History Family Medical History: Noncontributory - Tobacco Use Smoking Status *Q: Current Every Day Smoker Years of Tobacco use: 15 Packs/Tins Daily: 0.5 Used Tobacco, but Quit: No Month Tobacco Last Used: 05/28/14 Second Hand Smoke Exposure: No - Caffeine Use Caffeine Use: Reports: Coffee - Alcohol Use Days Per Week of Alcohol Use: 0 - Recreational Drug Use Recreational Drug Use: No H&P Review of Systems - Review of Systems: Review Of Systems: See Below Free Text/Narrative: A complete 12 point review of systems was obtained. Pertinent positives and negatives are noted in the history of present illness. All other systems were reviewed and were negative except as noted. Exam - Exam Exam: See Below - Vital Signs Vital Signs: Last Vital Signs Temp 36.7 C 10/06/17 10:14 Pulse 84 10/06/17 10:14 Resp 18 10/06/17 10:14 BP 134/73 10/06/17 10:14 Pulse Ox 96 10/06/17 10:14 Weight: 80.739 kg - Exam Quality Assessment: Supplemental Oxygen General: Alert, Oriented, Cooperative. No: Mild Distress HEENT: Conjunctiva Clear. No: Mucosa Moist & Blende, Scleral Icterus Neck: Supple, Trachea Midline. No: Lymphadenopathy Lungs: Clear to Auscultation, Normal Respiratory Effort Cardiovascular: Regular Rate, Regular Rhythm. No: Systolic Murmur GI/Abdominal Exam: Normal Bowel Sounds, Soft, Non-Tender, No Distention Back Exam: Normal Inspection, Full Range of Motion Extremities: No Pedal Edema. No: Increased Warmth Peripheral Pulses: 2+: Dorsalis Pedis (L), Dorsalis Pedis (R) Skin: Warm, Dry. No: Rash Neuro Extensive - Mental Status: Alert, Oriented x3, Nl Response to Commands Neuro Extensive - Motor, Sensory, Reflexes: CN II-XII Intact, Tremor. No: Dysarthria, Abnormal Motor Psychiatric: Alert, Normal Affect - Patient Data Lab Results Last 24 hrs: Laboratory Results - last 24 hr 10/06/17 10/06/17 10/06/17 Range/Units 09:57 09:57 09:57 WBC 7.5 (4.5-11.0) K/uL RBC 4.52 (4.30-5.90) M/uL Hgb 13.2 (12.0-15.0) g/dL Hct 39.5 L (40.0-54.0) % MCV 87 (80-98) fL MCH 29 (27-31) pg MCHC 33 (32-36) % Plt Count 270 (150-400) K/uL Neut % (Auto) 61 (36-66) % Lymph % (Auto) 24 (24-44) % [place] % (Auto) 10 H (2-6) % Eos % (Auto) 4 (2-4) % Baso % (Auto) 1 (0-1) % PT 10.8 (9.5-12.0) sec INR 1.01 (0.80-1.20) APTT 28.5 (27.0-36.0) sec Sodium 143 (140-148) mmol/L Potassium 3.2 L (3.6-5.2) mmol/L Chloride 108 (100-108) mmol/L Carbon Dioxide 24 (21-32) mmol/L Anion Gap 14.2 H (5.0-14.0) mmol/L BUN 19 H (7-18) mg/dL Creatinine 1.5 H (0.8-1.3) mg/dL Est Cr Clr Drug Dosing 43.23 mL/min Estimated GFR (MDRD) 45 L (>60) Glucose 113 H (74-106) mg/dL Calcium 9.1 (8.5-10.1) mg/dL Total Bilirubin 0.5 D (0.2-1.0) mg/dL AST 18 (15-37) U/L ALT 14 (12-78) U/L Alkaline Phosphatase 69 (46-116) U/L CK-MB (CK-2) 4.1 H (0-3.6) mg/mL Troponin I 0.033 (0.000-0.056) ng/mL Total Protein 6.5 (6.4-8.2) g/dL Albumin 3.3 L (3.4-5.0) g/dL Globulin 3.2 (2.3-3.5) g/dL Albumin/Globulin Ratio 1.0 L (1.2-2.2) Result Diagrams: 10/06/17 09:57 10/06/17 09:57 Imaging Impressions Last 24 hrs: Chest x-ray - edges personally reviewed - there is no evidence for mass, infiltrate or effusion. Heart size is normal. There is evidence of previous sternotomy EKG INTERPRETATION EKG Date: 10/06/17 Rhythm: A-Fib Rate (Beats/Min): 138 [place]: RAD-Right [place] Deviation P-Wave: Absent QRS: RBBB ST-T: Depressed QT: Normal EKG Interpretation Comments: Image personally reviewed *Q Meaningful Use (ADM) - VTE *Q VTE Criteria *Q: - VTE Risk Assess *Q Each Risk Factor Represents 1 Point: None Total Score 1 Point Risk Factors: 0 Each Risk Factor Represents 2 Points: None Total Score 2 Point Risk Factors: 0 Each Risk Factor Represents 3 Points: Age 75 Years or Greater Total Score 3 Point Risk Factors: 3 Each Risk Factor Represents 5 Points: None Total Score 5 Point Risk Factors: 0 Venous Thromboembolism Risk Factor Score *Q: 3 - Stroke *Q Stroke Criteria *Q: - AMI *Q AMI Criteria *Q: - Problem List (1) Chest pain SNOMED Code(s): 69526009 ICD Code: R07.9 - CHEST PAIN, UNSPECIFIED Status: Acute Current Visit: Yes Qualifiers: Chest pain type: precordial pain Qualified Code(s): R07.2 - Precordial pain (2) Atrial fibrillation with rapid ventricular response SNOMED Code(s): 912161937128022 ICD Code: I48.91 - UNSPECIFIED ATRIAL FIBRILLATION Status: Acute Current Visit: Yes (3) Coronary artery disease SNOMED Code(s): 43898500 ICD Code: I25.10 - ATHSCL HEART DISEASE OF [place] CORONARY ARTERY W/O ANG PCTRS Status: Chronic Current Visit: Yes Qualifiers: Coronary Disease-Associated Artery/Lesion type: [place] artery [place] vs. transplanted heart: [place] heart Associated angina: without angina Qualified Code(s): I25.10 - Atherosclerotic heart disease of [place] coronary artery without angina pectoris (4) Stage III chronic kidney disease SNOMED Code(s): 811978892 ICD Code: N18.3 - CHRONIC KIDNEY DISEASE, STAGE 3 (MODERATE) Status: Chronic Current Visit: Yes Problem List Initiated/Reviewed/Updated: Yes Orders Last 24hrs: Active Orders 24 hr Category Date Time Status Patient Status Manage Transfer [TRANSFER] Routine ADT 10/06/17 12:38 Ordered Diltiazem [Cardizem] 100 mg Med 10/06/17 10:04 Active Sodium Chloride 0.9% [Normal Saline] 100 ml IV TITRATE Resuscitation Status Routine Resus Stat 10/06/17 12:39 Ordered Medication Orders Diltiazem HCl 100 mg/ Sodium (Chloride) 100 mls @ 5 mls/hr IV TITRATE FLOYD; 5 MG /HR PRN Reason: Protocol Assessment/Plan Comment:: ASSESSMENT AND PLAN - Atrial fibrillation with rapid ventricular response - unclear if chest pain or tachycardia started first. Chest pain resolved after tachycardia was managed and I think the tachycardia came first. His EKG does not have acute ischemic changes and initial troponin is in the normal limits though his CK-MB is very mildly elevated. Vital signs currently stable and he is pain-free at this time. He is back in a normal sinus rhythm after diltiazem bolus. He did receive 324 mg of aspirin in the ambulance. -Cardiac monitoring -Every 8 hour metoprolol -Serial troponin levels -Daily aspirin Coronary artery disease - history of CABG approximately 6 years ago. He reports 2 recent evaluations in [place] by a kosher butcher. He has not had an angiogram because of borderline kidney function and concern for worsening of kidney function with an angiogram. I suspect the chest pain is because of the tachycardia as mentioned above. Normally is able to perform ADLs without significant limitations. He has been without his medications for several weeks and this could be contributing to his difficulties as well. -Medical management including blood pressure control, statin and aspirin -Beta amarjit as above Stage III chronic kidney disease - creatinine near baseline at this time. Maintenance issues - - DVT prophylaxis - ambulatory - GI prophylaxis - not indicated - Nutrition - heart healthy - Goode catheter - not indicated CODE STATUS - DNR/DNI Admission justification - patient will be referred observation status for serial troponins and cardiac monitoring Disposition - anticipate discharge to home after the hospital stay Primary care physician - Dr. Jose E Wright M.D.
[2017-10-06] MEDS ORDERED: Acetaminophen 325 MG Tab PO PRN (13:34)
[2017-10-06] MEDS ORDERED: Ondansetron 4 MG Tab.DIS PO PRN (13:34)
[2017-10-06] MEDS ORDERED: DIAZEPAM 5 MG PO PRN (16:28)
[2017-10-06] MEDS ORDERED: DOXAZOSIN MESYLATE 4 MG PO SCH (16:30)
[2017-10-06] MEDS ORDERED: Diazepam 5 MG Tab PO PRN (16:33)
[2017-10-06] MEDS: Metoprolol Tartrate 25 MG Tab PO SCH ×2 (16:53→23:14)
[2017-10-06] MEDS: OMEPRAZOLE 20 MG PO SCH (16:53)
[2017-10-06] MEDS: DOXAZOSIN 4 MG PO SCH (16:57)
[2017-10-06] MEDS: GABAPENTIN 600 MG PO SCH (20:37)
[2017-10-06] MEDS: AMLODIPINE 10 MG PO SCH (20:38)
[2017-10-07] MEDS ORDERED: FLUOXETINE 20 MG PO SCH (09:00)
[2017-10-07] MEDS ORDERED: Aspirin 81 MG Tab.EC PO SCH (09:00)
[2017-10-07] MEDS ORDERED: SIMVASTATIN 40 MG PO SCH (09:00)
[2017-10-07] MEDS ORDERED: [UNRECOGNIZED DRUG - REMARK] PO SCH (09:00)
[2017-10-07] MEDS: OMEPRAZOLE 20 MG PO SCH (10:54)
[2017-10-07] MEDS: Metoprolol Tartrate 25 MG Tab PO SCH (10:55)
[2017-10-07] MEDS: DOXAZOSIN 4 MG PO SCH (10:55)
[2017-10-07] MEDS: GABAPENTIN 600 MG PO SCH (10:57)
[2017-10-07] MEDS: AMLODIPINE 10 MG PO SCH (10:58)
--- NOTE | 2017-10-07 11:49 | PCM.DCSUM1 ---
Discharge Summary - Hospital Course Brief History: 76-year-old male with history of coronary artery disease status post coronary artery bypass surgery who presented with chest pain during exertion. He was admitted for observation and additional management of chest pain and paroxysmal atrial fibrillation with rapid ventricular response. - Discharge Data Discharge Date: 10/07/17 Discharge Disposition: Home, Self-Care 01 Condition: Good - Discharge Diagnosis/Problem(s) (1) Chest pain SNOMED Code(s): 25574869 ICD Code: R07.9 - CHEST PAIN, UNSPECIFIED Status: Acute Qualifiers: Chest pain type: precordial pain Qualified Code(s): R07.2 - Precordial pain (2) Atrial fibrillation with rapid ventricular response SNOMED Code(s): 067907975517762 ICD Code: I48.91 - UNSPECIFIED ATRIAL FIBRILLATION Status: Acute (3) Coronary artery disease SNOMED Code(s): 88705903 ICD Code: I25.10 - ATHSCL HEART DISEASE OF [place] CORONARY ARTERY W/O ANG PCTRS Status: Chronic Qualifiers: Coronary Disease-Associated Artery/Lesion type: [place] artery [place] vs. transplanted heart: [place] heart Associated angina: without angina Qualified Code(s): I25.10 - Atherosclerotic heart disease of [place] coronary artery without angina pectoris (4) Stage III chronic kidney disease SNOMED Code(s): 555180878 ICD Code: N18.3 - CHRONIC KIDNEY DISEASE, STAGE 3 (MODERATE) Status: Chronic - Patient Summary/Data Hospital Course: Hugh presented to the emergency room yesterday morning with chest pain that started while he was trying to help his after she had a fall. Workup in the emergency room revealed atrial fibrillation with a rapid ventricular response. He received 2 doses of adenosine in the emergency room with very temporary rate slowing and then achieved much better rate control after an IV dose of diltiazem and eventually converted in the emergency room with a diltiazem infusion. Workup for his chest pain which resolved after the atrial fibrillation resolved was initially unremarkable with no evidence for ischemia on EKG and his initial troponin was in the normal range. Given the severity of the chest pain he was admitted for observation and serial troponin levels. His troponin did rise slightly to 0.08 with the third level being similar and then a fourth level in the morning back in the normal range. He also had an episode of chest pain the evening after admission after a heated discussion with family members about discharge planning. EKG at that time was also unremarkable. He does have known coronary artery disease but has not had recent risk stratification because of borderline kidney function and concern for worsening of his renal function if an angiogram were to be performed. He has not been taking his medications regularly over the past month or so because of difficulty obtaining them per his report. Hopefully now that he is back on his medications this will help medically manage his coronary artery disease. I believe the episodes of chest pain represent a stable angina. He is not interested in aggressive intervention at this time but may consider it if symptoms continue or if they get worse. Family mentioned concern about both patient and his at home. Their concerns include safety for both of them as well as medication set up and administration. The patient is very resistant to assisted living and adamant that he will not go to the long-term. He is agreeable to receiving some home health services for his . He is contemplating the idea of assisted living at the time of discharge. I believe he is safe to go home at this point because I don't think things are any less safe now than they have been for months or possibly the past couple of years. Family will be providing as much help as possible until an assisted living facility is available. - Patient Instructions Diet: Heart Healthy Diet Activity: As Tolerated Driving: Do Not Drive Showering/Bathing: May Shower Notify Provider of: Fever, Increased Pain, Nausea and/or Vomiting Other/Special Instructions: 1. You were in the hospital for observation after an episode of chest pain and atrial fibrillation with a rapid ventricular response. Your heart is back in a normal rhythm after a dose of medication yesterday morning. There was no evidence that you had a heart attack. if you continue to have episodes of chest pain I would recommend that you follow-up with a television camera operator and review the risks and benefits of the angiogram. I did send a prescription for nitroglycerin tablets. You should take 1 tablet if you develop chest pain. You may repeat this every 5 minutes for 2 more doses. If you still have pain after 3 doses you should call 911 immediately. 2. Please continue your usual home medications as previously prescribed. 3. Please seek medical attention if you develop fever greater than 101, have sudden onset of shortness of breath or if you develop severe chest pain not relieved by nitroglycerin. - Discharge Plan Prescriptions/Med Rec: Nitroglycerin 0.4 mg SL ASDIRECTED #15 tab.subl Home Medications: Home Meds Clopidogrel [Plavix] 75 mg PO DAILY 09/14/13 [History] Doxazosin Mesylate 4 mg PO DAILY 09/14/13 [History] FLUoxetine HCl [Fluoxetine HCl] 40 mg PO DAILY 09/14/13 [History] Finasteride [Proscar] 5 mg PO DAILY 09/14/13 [History] Furosemide 20 mg PO DAILY 09/14/13 [History] Lisinopril 2.5 mg PO DAILY 09/14/13 [History] Omeprazole 20 mg PO BID 09/14/13 [History] Tamsulosin HCl 0.4 mg PO DAILY 09/14/13 [History] amLODIPine [Norvasc] 5 mg PO BID 09/14/13 [History] ALPRAZolam [Xanax] 0.25 mg PO TID 30 Days tablet 06/03/14 [Rx] Amantadine [Symmetrel 50 MG/5 ML] 100 mg PO DAILY #2 ml 06/03/14 [Rx] Pramipexole [Mirapex] 0.25 mg PO BEDTIME #2 tab 06/03/14 [Rx] Divalproex Sodium 250 mg PO BID 02/02/15 [History] Carbidopa/Levodopa [Carbidopa-Levo ER 25-100] 1 each PO DAILY 02/04/15 [History] Albuterol Sulfate [Ventolin Hfa] 2 puff INH Q4H PRN 07/14/16 [History] Diazepam [Valium] 5 mg PO Q8H PRN 07/14/16 [History] Docusate Sodium/Sennosides [Senokot-S] 2 tab PO BID PRN 07/14/16 [History] Dutasteride [Avodart] 0.5 mg PO DAILY 07/14/16 [History] Gabapentin [Neurontin] 600 mg PO BID 07/14/16 [History] Simvastatin [Zocor] 40 mg PO DAILY 07/14/16 [History] Solifenacin [Vesicare] 5 mg PO BEDTIME 07/14/16 [History] oxyCODONE 15 mg PO Q4H PRN 07/14/16 [History] Cyclobenzaprine [Flexeril] 10 mg PO TID PRN 10/06/17 [History] FLUoxetine [PROzac] 20 mg PO DAILY 10/06/17 [History] Nitroglycerin 0.4 mg SL ASDIRECTED #15 tab.subl 10/07/17 [Rx] Patient Handouts: Nitroglycerin sublingual tablets, Angina Pectoris Referrals: Dallas Dorantes MD [Physician] - (1 week - follow-up hospital stay for chest pain and atrial fibrillation) - Discharge Summary/Plan Comment DC Time >30 min.: No (25) - Patient Data Vitals - Most Recent: Last Vital Signs Temp 36.3 C 10/07/17 07:45 Pulse 60 10/07/17 10:55 Resp 18 10/07/17 07:45 BP 127/81 10/07/17 10:58 Pulse Ox 94 L 10/07/17 07:45 Weight - Most Recent: 80.739 kg I&O - Last 24 hours: Intake & Output 10/06/17 10/07/17 10/07/17 22:59 06:59 14:59 Intake Total 100 450 Output Total 600 Balance 100 -150 Lab Results - Last 24 hrs: Laboratory Results - last 24 hr 10/06/17 10/06/17 10/07/17 Range/Units 13:34 18:00 08:51 Troponin I 0.084 H* 0.080 H* 0.032 (0.000-0.056) ng/mL Med Orders - Current: Current Medications Acetaminophen (Tylenol) 650 mg PO Q4H PRN PRN Reason: Pain (Mild 1-3)/fever Amlodipine Besylate (Norvasc) 5 mg PO BID [facility] Last Admin: 10/07/17 10:58 Dose: 5 mg Aspirin (Halfprin) 81 mg PO DAILY [facility] Last Admin: 10/07/17 10:57 Dose: 81 mg Diazepam (Valium.) 5 mg PO Q8H PRN PRN Reason: Anxiety Doxazosin Mesylate (Cardura) 4 mg PO DAILY [facility] Last Admin: 10/07/17 10:55 Dose: 4 mg Fluoxetine HCl (Prozac) 20 mg PO DAILY [facility] Last Admin: 10/07/17 10:59 Dose: 20 mg Metoprolol Tartrate (Lopressor) 25 mg PO Q8H [facility] Last Admin: 10/07/17 10:55 Dose: 25 mg Non-Fo(Fluoxetine Hcl [Fluoxetine Hcl] 40 Mg)*Pom* 40 mg PO DAILY [facility] Last Admin: 10/07/17 10:56 Dose: 40 mg (Gabapentin [ Neurontin] 600 Mg)* Pom* 600 mg PO BID [facility] Last Admin: 10/07/17 10:57 Dose: 600 mg (Omeprazole [ Omeprazole] 20 Mg)* [facility] Admin: 10/07/17 10:54 Dose: 20 mg (Simvastatin [Zocor] (40 Mg)*Pom*) 40 mg PO DAILY [facility] Last Admin: 10/07/17 10:59 Dose: 40 mg Ondansetron HCl (Zofran Odt) 4 mg PO Q6H PRN PRN Reason: Nausea able to take PO Oxycodone HCl (Oxycodone) 15 mg PO Q4H PRN PRN Reason: Pain Last Admin: 10/06/17 17:07 Dose: 15 mg Discontinued Medications Adenosine (Adenocard) 6 mg IVPUSH ONETIME ONE Stop: 10/06/17 09:52 Last Admin: 10/06/17 16:15 Dose: Not Given Adenosine (Adenocard) 12 mg IVPUSH ONETIME ONE Stop: 10/06/17 09:54 Last Admin: 10/06/17 16:15 Dose: Not Given Diltiazem HCl (Cardizem) Confirm Administered Dose 100 mg .ROUTE .STK-MED ONE Stop: 10/06/17 09:58 Last Admin: 10/06/17 16:15 Dose: Not Given Diltiazem HCl (Diltiazem) 25 mg IV ONETIME ONE Stop: 10/06/17 09:56 Last Admin: 10/06/17 16:15 Dose: Not Given Hydromorphone HCl (Dilaudid) Confirm Administered Dose 1 mg .ROUTE .STK-MED ONE Stop: 10/06/17 09:58 Last Admin: 10/06/17 16:16 Dose: Not Given Hydromorphone HCl (Dilaudid) 1 mg IV ONETIME ONE Stop: 10/06/17 10:03 Last Admin: 10/06/17 16:16 Dose: Not Given Sodium Chloride (Normal Saline) Confirm Administered Dose 100 mls @ as directed .ROUTE .STK-MED ONE Stop: 10/06/17 09:58 Last Admin: 10/06/17 16:16 Dose: Not Given Diltiazem HCl 100 mg/ Sodium (Chloride) 100 mls @ 5 mls/hr IV TITRATE FLOYD; 5 MG /HR PRN Reason: Protocol - Exam Quality Assessment: Denies: Supplemental Oxygen General: Reports: Alert, Oriented, Cooperative, No Acute Distress Lungs: Reports: Normal Respiratory Effort GI/Abdominal Exam: No Distention Extremities: No Pedal Edema Psy/Mental Status: Reports: Alert, Normal Affect *Q Meaningful Use (DIS) - VTE *Q VTE Criteria *Q: - Stroke *Q Stroke Criteria *Q: - AMI *Q AMI Criteria *Q:
[2017-10-11 13:41] VITALS: BP 127/81
== END 2017-10-07 14:00 | disposition home or self-care (01) ==
LOC: JP.ED 09:37 → JP.2SS 12:38
PROVIDERS: ADMIT Internal Medicine; ATTEND Internal Medicine
DX: R07.89 Other chest pain (principal); I48.91 Unspecified atrial fibrillation; I25.10 Atherosclerotic heart disease of native coronary artery without angina pectoris; I12.9 Hypertensive chronic kidney disease with stage 1 through stage 4 chronic kidney disease, or unspecified chronic kidney disease; N18.3 Chronic kidney disease, stage 3 (moderate); E78.00 Pure hypercholesterolemia, unspecified; J45.909 Unspecified asthma, uncomplicated; F41.9 Anxiety disorder, unspecified; F32.9 Major depressive disorder, single episode, unspecified; F17.210 Nicotine dependence, cigarettes, uncomplicated; N42.9 Disorder of prostate, unspecified; G20 Parkinson's disease; Z86.73 Personal history of transient ischemic attack (TIA), and cerebral infarction without residual deficits; Z79.01 Long term (current) use of anticoagulants; Z79.899 Other long term (current) drug therapy; Z88.5 Allergy status to narcotic agent; Z95.1 Presence of aortocoronary bypass graft; Z96.659 Presence of unspecified artificial knee joint; Z98.49 Cataract extraction status, unspecified eye; Z90.89 Acquired absence of other organs; Z90.49 Acquired absence of other specified parts of digestive tract; Z98.890 Other specified postprocedural states
CPT/HCPCS: 36415; 71010; 80053; 82553; 84484; 85025; 85610; 85730; 93005; 96374; 99285; A9270; G0378; J3490; J7030; 93010; 99217; 99220; J1170

== ENCOUNTER 2018-01-31 12:37 | Inpatient (IN) | payer MEDICARE, BC ==
[2018-01-31] MEDS ORDERED: Sodium Chloride 0.9% 1,000 ML IV SCH (13:30)
--- NOTE | 2018-01-31 14:07 | EDM.PDOC ---
ED HPI GENERAL MEDICAL PROBLEM - General Chief Complaint: Gastrointestinal Problem Stated Complaint: RECTAL BLEEDING Time Seen by Provider: 01/31/18 12:55 Source of Information: Reports: Patient, Family History Limitations: Reports: No Limitations - History of Present Illness INITIAL COMMENTS - FREE TEXT/NARRATIVE: pt has had about4 loose bloody stools this am.He does not feel weak. He has had pain in the left lower bdoman. He has had colonostomies in the past. He was told everything looked ok. Onset: Today, Other ( started this am. ) Duration: Hour(s): Location: Reports: Abdomen, Other (pain in the left lower abdoman. ) Associated Symptoms: Reports: No Other Symptoms Lower Abdominal Pain Score (Numeric/FACES): 4 - Related Data Allergies Allergy/AdvReac Type Severity Reaction Status Date / Time morphine Allergy Severe Shortness Verified 01/31/18 12:54 of Breath Home Meds: Home Meds Doxazosin Mesylate 4 mg PO DAILY 09/14/13 [History] FLUoxetine HCl [Fluoxetine HCl] 40 mg PO DAILY 09/14/13 [History] Furosemide 20 mg PO DAILY 09/14/13 [History] Lisinopril 2.5 mg PO DAILY 09/14/13 [History] Omeprazole 20 mg PO BID 09/14/13 [History] Tamsulosin HCl 0.4 mg PO DAILY 09/14/13 [History] amLODIPine [Norvasc] 5 mg PO BID 09/14/13 [History] Carbidopa/Levodopa [Carbidopa-Levo ER 25-100] 0.5 tab PO DAILY 02/04/15 [History ] Albuterol Sulfate [Ventolin Hfa] 2 puff INH Q4H PRN 07/14/16 [History] Diazepam [Valium] 5 mg PO Q8H PRN 07/14/16 [History] Dutasteride [Avodart] 0.5 mg PO DAILY 07/14/16 [History] Gabapentin [Neurontin] 600 mg PO BID 07/14/16 [History] Simvastatin [Zocor] 40 mg PO DAILY 07/14/16 [History] Solifenacin [Vesicare] 5 mg PO BEDTIME 07/14/16 [History] oxyCODONE 15 mg PO Q4H PRN 07/14/16 [History] Cyclobenzaprine [Flexeril] 10 mg PO TID PRN 10/06/17 [History] FLUoxetine [PROzac] 20 mg PO DAILY 10/06/17 [History] Sennosides/Docusate Sodium [Senna-Docusate Sodium] 2 tab PO BID PRN 01/31/18 [ History] Past Medical History HEENT History: Reports: Allergic Rhinitis, Hard of Hearing, Other (See Below) Other HEENT History: difficulty swallowing, tinnitis Cardiovascular History: Reports: Arrhythmia, Bypass, CAD, High Cholesterol, Hypertension Respiratory History: Reports: Asthma Gastrointestinal History: Reports: Colon Polyp, Hemorrhoids, Other (See Below) Other Gastrointestinal History: hernia Genitourinary History: Reports: Prostate Disorder, Renal Disease Musculoskeletal History: Reports: Other (See Below) Other Musculoskeletal History: "muscle cramps and spasms" Neurological History: Reports: CVA, Headaches, Chronic, Parkinson's Psychiatric History: Reports: Anxiety, Depression Endocrine/Metabolic History: Reports: None - Infectious Disease History Infectious Disease History: Reports: Chicken Pox, Measles, Mumps - Past Surgical History HEENT Surgical History: Reports: Cataract Surgery, Tonsillectomy Cardiovascular Surgical History: Reports: Coronary Artery Bypass GI Surgical History: Reports: Appendectomy, Cholecystectomy, Colonoscopy, Hernia , Inguinal Musculoskeletal Surgical History: Reports: Knee Replacement Social & Family History - Family History Family Medical History: Noncontributory - Tobacco Use Smoking Status *Q: Current Every Day Smoker Years of Tobacco use: 15 Packs/Tins Daily: 0.5 Used Tobacco, but Quit: No Month/Year Tobacco Last Used: 05/28/14 Second Hand Smoke Exposure: No - Caffeine Use Caffeine Use: Reports: Coffee Caffeine Use Comment: 6-8 cups/day - Alcohol Use Days Per Week of Alcohol Use: 0 - Recreational Drug Use Recreational Drug Use: No ED ROS GENERAL - Review of Systems Review Of Systems: See Below Constitutional: Reports: No Symptoms HEENT: Reports: No Symptoms Respiratory: Reports: No Symptoms Cardiovascular: Reports: No Symptoms Endocrine: Reports: No Symptoms GI/Abdominal: Reports: Abdominal Pain, Bloody Stool : Reports: No Symptoms Musculoskeletal: Reports: No Symptoms Skin: Reports: No Symptoms Neurological: Reports: No Symptoms ED EXAM, GI/ABD - Physical Exam Exam: See Below Text/Narrative:: Pt arrived stating he is having bloody stools x4. He has pain in the left lower abdoman. Exam Limited By: No Limitations General Appearance: Alert, Mild Distress, Other (pupils are equal nd reactive. ) Ears: Normal TMs Nose: Normal Inspection Throat/Mouth: Normal Inspection Head: Atraumatic Neck: Normal Inspection Respiratory/Chest: No Respiratory Distress Cardiovascular: Regular Rate, Rhythm GI/Abdominal Exam: Tender, Other (pt has tenderness in the left lower abdoman. He does not have true guarding. ) (Male) Exam: Other (pt does have burning on urination. ) Rectal (Males) Exam: Deferred Back Exam: Normal Inspection Extremities: Normal Inspection Neurological: Alert, Oriented, Normal Cognition Psychiatric: Normal Affect Course - Vital Signs Last Recorded V/S: Last Vital Signs Temp 37 C 01/31/18 12:50 Pulse 68 01/31/18 13:25 Resp 20 01/31/18 12:50 BP 174/91 H 01/31/18 13:25 Pulse Ox 94 L 01/31/18 13:25 - Orders/Labs/Meds Orders: Active Orders 24 hr Category Date Time Status Abdomen Pelvis wo Cont [CT] Stat Exams 01/31/18 13:39 Taken CULTURE URINE [RM] Stat Lab 01/31/18 13:00 Received UA W/MICROSCOPIC [URIN] Urgent Lab 01/31/18 13:00 Ordered Levofloxacin/Dextrose 5%-Water [Levaquin in D5W 500 MG/ Med 01/31/18 14:20 Ordered 100 ML] 500 mg Premix Bag 1 bag IV ONETIME Sodium Chloride 0.9% [Normal Saline] 1,000 ml Med 01/31/18 13:30 Active IV ASDIRECTED metroNIDAZOLE/Normal Saline [Flagyl 500 MG in NS 100 ML Med 01/31/18 14:21 Ordered ] 500 mg Premix Bag 1 bag IV ONETIME Medication Orders Sodium Chloride (Normal Saline) 1,000 mls @ 250 mls/hr IV ASDIRECTED FLOYD Last Admin: 01/31/18 13:41 Dose: 250 mls/hr Levofloxacin/Dextrose 500 mg/ (Premix) 100 mls @ 100 mls/hr IV ONETIME ONE Stop: 01/31/18 15:19 Labs: Laboratory Tests 01/31/18 01/31/18 01/31/18 Range/Units 13:00 13:00 13:00 WBC 15.2 H (4.5-11.0) K/uL RBC 4.52 (4.30-5.90) M/uL Hgb 13.3 (12.0-15.0) g/dL Hct 39.4 L (40.0-54.0) % MCV 87 (80-98) fL MCH 29 (27-31) pg MCHC 34 (32-36) % Plt Count 282 (150-400) K/uL Neut % (Auto) 72 H (36-66) % Lymph % (Auto) 15 L (24-44) % [place] % (Auto) 7 H (2-6) % Eos % (Auto) 5 H (2-4) % Baso % (Auto) 0 (0-1) % Sodium 140 (140-148) mmol/L Potassium 3.9 (3.6-5.2) mmol/L Chloride 106 (100-108) mmol/L Carbon Dioxide 23 (21-32) mmol/L Anion Gap 11.1 (5.0-14.0) mmol/L BUN 32 H D (7-18) mg/dL Creatinine 1.8 H (0.8-1.3) mg/dL Est Cr Clr Drug Dosing 35.44 mL/min Estimated GFR (MDRD) 37 L (>60) Glucose 101 (74-106) mg/dL Calcium 8.9 (8.5-10.1) mg/dL Total Bilirubin 0.5 (0.2-1.0) mg/dL AST 12 L (15-37) U/L ALT 15 (12-78) U/L Alkaline Phosphatase 67 (46-116) U/L C-Reactive Protein (0.0-0.3) mg/dL Total Protein 6.6 (6.4-8.2) g/dL Albumin 3.4 (3.4-5.0) g/dL Globulin 3.2 (2.3-3.5) g/dL Albumin/Globulin Ratio 1.1 L (1.2-2.2) Urine Color Yellow Urine Appearance Clear Urine pH 6.0 (4.5-8.0) Ur Specific [place] 1.015 (1.008-1.030) Urine Protein Negative (NEGATIVE) mg/dL Urine Glucose (UA) Normal (NEGATIVE) mg/dL Urine Ketones Negative (NEGATIVE) mg/dL Urine Occult Blood Negative (NEGATIVE) Urine Nitrite Negative (NEGAITVE) Urine Bilirubin Negative (NEGATIVE) Urine Urobilinogen Normal (NORMAL) mg/dL Ur Leukocyte Esterase Negative (NEGATIVE) Urine RBC 0-5 (0-5) Urine WBC 0-5 (0-5) Ur Epithelial Cells Rare Amorphous Sediment Not seen Urine Bacteria Not seen Urine Mucus Not seen 01/31/18 Range/Units 13:00 WBC (4.5-11.0) K/uL RBC (4.30-5.90) M/uL Hgb (12.0-15.0) g/dL Hct (40.0-54.0) % MCV (80-98) fL MCH (27-31) pg MCHC (32-36) % Plt Count (150-400) K/uL Neut % (Auto) (36-66) % Lymph % (Auto) (24-44) % [place] % (Auto) (2-6) % Eos % (Auto) (2-4) % Baso % (Auto) (0-1) % Sodium (140-148) mmol/L Potassium (3.6-5.2) mmol/L Chloride (100-108) mmol/L Carbon Dioxide (21-32) mmol/L Anion Gap (5.0-14.0) mmol/L BUN (7-18) mg/dL Creatinine (0.8-1.3) mg/dL Est Cr Clr Drug Dosing mL/min Estimated GFR (MDRD) (>60) Glucose (74-106) mg/dL Calcium (8.5-10.1) mg/dL Total Bilirubin (0.2-1.0) mg/dL AST (15-37) U/L ALT (12-78) U/L Alkaline Phosphatase (46-116) U/L C-Reactive Protein 6.40 H (0.0-0.3) mg/dL Total Protein (6.4-8.2) g/dL Albumin (3.4-5.0) g/dL Globulin (2.3-3.5) g/dL Albumin/Globulin Ratio (1.2-2.2) Urine Color Urine Appearance Urine pH (4.5-8.0) Ur Specific [place] (1.008-1.030) Urine Protein (NEGATIVE) mg/dL Urine Glucose (UA) (NEGATIVE) mg/dL Urine Ketones (NEGATIVE) mg/dL Urine Occult Blood (NEGATIVE) Urine Nitrite (NEGAITVE) Urine Bilirubin (NEGATIVE) Urine Urobilinogen (NORMAL) mg/dL Ur Leukocyte Esterase (NEGATIVE) Urine RBC (0-5) Urine WBC (0-5) Ur Epithelial Cells Amorphous Sediment Urine Bacteria Urine Mucus Meds: Medications Generic Name Dose Route Start Last Admin Trade Name Freq PRN Reason Stop Dose Admin Sodium Chloride 1,000 mls @ 250 mls/hr 01/31/18 13:30 01/31/18 13:41 Normal Saline IV 250 mls/hr ASDIRECTED FLOYD Administration Levofloxacin/Dextrose 500 mg/ 100 mls @ 100 mls/hr 01/31/18 14:20 Premix IV 01/31/18 15:19 ONETIME ONE - Re-Assessments/Exams Free Text/Narrative Re-Assessment/Exam: 01/31/18 14:12 pt has a normal hg at 13. His creatnine is 1.8. He will have cat scan without contrast. This showed acute diverticulitis Departure - Departure Time of Disposition: 14:16 Disposition: Admitted As Inpatient 64 Condition: Fair Clinical Impression: Diverticulitis, GI bleeding - Discharge Information Referrals: Dallas Dorantes MD [Primary Care Provider] - Forms: ED Department Discharge Care Plan Goals: admit to Dr Pritchett - My Orders Last 24 Hours: My Active Orders 01/31/18 13:00 CULTURE URINE [RM] Stat UA W/MICROSCOPIC [URIN] Urgent 01/31/18 13:30 Sodium Chloride 0.9% [Normal Saline] 1,000 ml IV ASDIRECTED 01/31/18 13:39 Abdomen Pelvis wo Cont [CT] Stat 01/31/18 14:20 Levofloxacin/Dextrose 5%-Water [Levaquin in D5W 500 MG/100 ML] 500 mg Premix Bag 1 bag IV ONETIME 01/31/18 14:21 metroNIDAZOLE/Normal Saline [Flagyl 500 MG in NS 100 ML] 500 mg Premix Bag 1 bag IV ONETIME - Assessment/Plan Last 24 Hours: My Active Orders 01/31/18 13:00 CULTURE URINE [RM] Stat UA W/MICROSCOPIC [URIN] Urgent 01/31/18 13:30 Sodium Chloride 0.9% [Normal Saline] 1,000 ml IV ASDIRECTED 01/31/18 13:39 Abdomen Pelvis wo Cont [CT] Stat 01/31/18 14:20 Levofloxacin/Dextrose 5%-Water [Levaquin in D5W 500 MG/100 ML] 500 mg Premix Bag 1 bag IV ONETIME 01/31/18 14:21 metroNIDAZOLE/Normal Saline [Flagyl 500 MG in NS 100 ML] 500 mg Premix Bag 1 bag IV ONETIME
[2018-01-31] MEDS ORDERED: Levofloxacin/Dextrose 5%-Water 500 MG in Premix Bag 1 BAG IV ONE (14:20)
[2018-01-31] MEDS ORDERED: metroNIDAZOLE/Normal Saline 500 MG in Premix Bag 1 BAG IV ONE (14:21)
--- NOTE | 2018-01-31 14:21 | CT ---
Abdomen Pelvis wo Cont HISTORY: rectal bleeding and left lower pain Axial spiral noncontrasted CT scan of the abdomen and pelvis was obtained along with coronal reconstr uctions. Auto dosage and iterative reconstruction techniques were employed. COMPARISON: 03/25/2017 FINDINGS: Mild emphysematous changes are seen at the lung bases. No basilar infiltrate is identified. There is no pleural fluid. Heart size appears normal. Small sliding-type hiatal hernia is redemonstr ated. This is smaller on today's exam measuring about 3 cm in greatest diameter. No obvious focal abnormality of the liver, spleen, gallbladder, pancreas, or adrenal glands is identi fied on this noncontrasted exam. A subcentimeter cyst is redemonstrated posterior cortex mid left kid iram. A 3.5 cm diameter cyst is redemonstrated lower pole left kidney. These are stable. No renal or u reteral calculi are seen. There is no hydronephrosis or ureteral dilatation. Scattered atheroscleroti c vascular calcification is noted. Abdominal aorta is not dilated. Small bowel loops are nondistended. Scattered diverticula are noted in the descending and sigmoid col on. There is mild bowel wall thickening along the stranding in the pericolonic fat adjacent to the pr oximal descending colon. Adjacent peritoneal thickening is also seen. This may represent acute divert iculitis or possibly localized colitis. I see no signs of perforation or abscess. There are no signs of appendicitis. No pelvic mass or abnormal fluid collections are seen. I see no pelvic, or intracranial, or mesenteri c adenopathy. Diffuse degenerative and hypertrophic changes are noted lower thoracic and lumbar spine . Old compression fracture of the L2 vertebral body is noted with vertebroplasty changes. There is no compression fracture of L4. Bony structures are diffusely osteopenic. IMPRESSION: 1. Acute diverticulitis versus localized colitis proximal descending colon. No signs of perforation o r abscess. Underlying malignancy cannot be entirely excluded. 2. No other acute intra-abdominal or pelvic abnormality can be identified on this noncontrasted exam. Report was called to Dr. Tinajero in the Emergency Department at 1415 hours.
--- NOTE | 2018-01-31 16:31 | PCM.HP ---
H&P History of Present Illness - General Date of Service: 01/31/18 Admit Problem/Dx: Source of Information: Patient, Family, Old Records, Provider, RN Notes Reviewed History Limitations: Reports: No Limitations - History of Present Illness Initial Comments - Free Text/Narative: Mr. Pruitt is a 77-year-old gentleman who is admitted through the emergency department with abdominal pain, fever, and lower GI bleeding secondary to diverticulitis. He does have a history of multiple other underlying medical problems including coronary artery disease and Parkinson's. 2 days prior to admission noted onset of left lower quadrant abdominal pain, pain has progressive the increased over the past 2 days and today noted onset of bloody stools. On evaluation in the emergency department he is noted to have an elevated white blood cell count and CT scan of the abdomen shows evidence of diverticulitis. Initial hemoglobin is 13.3 and he said no further evidence of active bleeding while in the emergency department Lower Abdominal Pain Score (Numeric/FACES): 4 - Related Data Allergies/Adverse Reactions: Allergies Allergy/AdvReac Type Severity Reaction Status Date / Time morphine Allergy Severe Shortness Verified 01/31/18 12:54 of Breath Home Medications: Home Meds Doxazosin Mesylate 4 mg PO DAILY 09/14/13 [History] FLUoxetine HCl [Fluoxetine HCl] 40 mg PO DAILY 09/14/13 [History] Furosemide 20 mg PO DAILY 09/14/13 [History] Lisinopril 2.5 mg PO DAILY 09/14/13 [History] Omeprazole 20 mg PO BID 09/14/13 [History] Tamsulosin HCl 0.4 mg PO DAILY 09/14/13 [History] amLODIPine [Norvasc] 5 mg PO BID 09/14/13 [History] Carbidopa/Levodopa [Carbidopa-Levo ER 25-100] 0.5 tab PO DAILY 02/04/15 [History ] Albuterol Sulfate [Ventolin Hfa] 2 puff INH Q4H PRN 07/14/16 [History] Diazepam [Valium] 5 mg PO Q8H PRN 07/14/16 [History] Dutasteride [Avodart] 0.5 mg PO DAILY 07/14/16 [History] Gabapentin [Neurontin] 600 mg PO BID 07/14/16 [History] Simvastatin [Zocor] 40 mg PO DAILY 07/14/16 [History] Solifenacin [Vesicare] 5 mg PO BEDTIME 07/14/16 [History] oxyCODONE 15 mg PO Q4H PRN 07/14/16 [History] Cyclobenzaprine [Flexeril] 10 mg PO TID PRN 10/06/17 [History] FLUoxetine [PROzac] 20 mg PO DAILY 10/06/17 [History] Sennosides/Docusate Sodium [Senna-Docusate Sodium] 2 tab PO BID PRN 01/31/18 [ History] Past Medical History HEENT History: Reports: Allergic Rhinitis, Hard of Hearing, Other (See Below) Other HEENT History: difficulty swallowing, tinnitis Cardiovascular History: Reports: Arrhythmia, Bypass, CAD, High Cholesterol, Hypertension Respiratory History: Reports: Asthma Gastrointestinal History: Reports: Colon Polyp, Hemorrhoids, Other (See Below) Other Gastrointestinal History: hernia Genitourinary History: Reports: Prostate Disorder, Renal Disease Musculoskeletal History: Reports: Other (See Below) Other Musculoskeletal History: "muscle cramps and spasms" Neurological History: Reports: CVA, Headaches, Chronic, Parkinson's Psychiatric History: Reports: Anxiety, Depression Endocrine/Metabolic History: Reports: None - Infectious Disease History Infectious Disease History: Reports: Chicken Pox, Measles, Mumps - Past Surgical History HEENT Surgical History: Reports: Cataract Surgery, Tonsillectomy Cardiovascular Surgical History: Reports: Coronary Artery Bypass GI Surgical History: Reports: Appendectomy, Cholecystectomy, Colonoscopy, Hernia , Inguinal Musculoskeletal Surgical History: Reports: Knee Replacement Social & Family History - Family History Family Medical History: Noncontributory - Tobacco Use Smoking Status *Q: Current Every Day Smoker Years of Tobacco use: 15 Packs/Tins Daily: 0.5 Used Tobacco, but Quit: No Month/Year Tobacco Last Used: 05/28/14 Second Hand Smoke Exposure: No - Caffeine Use Caffeine Use: Reports: Coffee Caffeine Use Comment: 6-8 cups/day - Alcohol Use Days Per Week of Alcohol Use: 0 - Recreational Drug Use Recreational Drug Use: No H&P Review of Systems - Review of Systems: Review Of Systems: See Below General: Reports: Chills, Weakness, Diaphoresis, Decreased Appetite. Denies: Fever HEENT: Reports: No Symptoms Pulmonary: Reports: No Symptoms Cardiovascular: Reports: No Symptoms Gastrointestinal: Reports: Abdominal Pain, Decreased Appetite, Hematochezia. Denies: Constipation, Diarrhea, Difficulty Swallowing, Distension, Nausea, Vomiting Genitourinary: Reports: No Symptoms Musculoskeletal: Reports: No Symptoms Skin: Reports: No Symptoms Psychiatric: Reports: No Symptoms Neurological: Reports: No Symptoms Hematologic/Lymphatic: Reports: No Symptoms Immunologic: Reports: No Symptoms Exam - Exam Exam: See Below - Vital Signs Vital Signs: Last Vital Signs Temp 98.6 F 01/31/18 12:50 Pulse 64 01/31/18 15:10 Resp 20 01/31/18 12:50 BP 189/101 H 01/31/18 15:10 Pulse Ox 93 L 01/31/18 15:10 Weight: 172 lb 13.478 oz - Exam Quality Assessment: DVT Prophylaxis General: Alert, Oriented, Cooperative, Mild Distress HEENT: Conjunctiva Clear, Normal Nasal Septum, Posterior Pharynx Clear, Pupils Equal. No: Hearing Intact, Mucosa Moist & [place] Neck: Supple, Trachea Midline, +2 Carotid Pulse wo Bruit Lungs: Clear to Auscultation, Normal Respiratory Effort Cardiovascular: Regular Rate, Regular Rhythm, Normal S1, Normal S2. No: Systolic Murmur, Diastolic Murmur GI/Abdominal Exam: Soft, No Organomegaly, Tender. No: Distended, Guarding, Rigid, Rebound Back Exam: Normal Inspection, Full Range of Motion Extremities: Non-Tender, No Pedal Edema Skin: Warm, Dry, Intact Neurological: Cranial Nerves Intact, Strength Equal Bilateral, Normal Speech, Normal Tone, Sensation Intact. No: Focal Deficit Neuro Extensive - Mental Status: Alert, Oriented x3, Normal Mood/Affect, Normal Cognition, Memory Intact - Patient Data Lab Results Last 24 hrs: Laboratory Results - last 24 hr 01/31/18 01/31/18 01/31/18 Range/Units 13:00 13:00 13:00 WBC 15.2 H (4.5-11.0) K/uL RBC 4.52 (4.30-5.90) M/uL Hgb 13.3 (12.0-15.0) g/dL Hct 39.4 L (40.0-54.0) % MCV 87 (80-98) fL MCH 29 (27-31) pg MCHC 34 (32-36) % Plt Count 282 (150-400) K/uL Neut % (Auto) 72 H (36-66) % Lymph % (Auto) 15 L (24-44) % [place] % (Auto) 7 H (2-6) % Eos % (Auto) 5 H (2-4) % Baso % (Auto) 0 (0-1) % Sodium 140 (140-148) mmol/L Potassium 3.9 (3.6-5.2) mmol/L Chloride 106 (100-108) mmol/L Carbon Dioxide 23 (21-32) mmol/L Anion Gap 11.1 (5.0-14.0) mmol/L BUN 32 H D (7-18) mg/dL Creatinine 1.8 H (0.8-1.3) mg/dL Est Cr Clr Drug Dosing 35.44 mL/min Estimated GFR (MDRD) 37 L (>60) Glucose 101 (74-106) mg/dL Calcium 8.9 (8.5-10.1) mg/dL Total Bilirubin 0.5 (0.2-1.0) mg/dL AST 12 L (15-37) U/L ALT 15 (12-78) U/L Alkaline Phosphatase 67 (46-116) U/L C-Reactive Protein (0.0-0.3) mg/dL Total Protein 6.6 (6.4-8.2) g/dL Albumin 3.4 (3.4-5.0) g/dL Globulin 3.2 (2.3-3.5) g/dL Albumin/Globulin Ratio 1.1 L (1.2-2.2) Urine Color Yellow Urine Appearance Clear Urine pH 6.0 (4.5-8.0) Ur Specific [place] 1.015 (1.008-1.030) Urine Protein Negative (NEGATIVE) mg/dL Urine Glucose (UA) Normal (NEGATIVE) mg/dL Urine Ketones Negative (NEGATIVE) mg/dL Urine Occult Blood Negative (NEGATIVE) Urine Nitrite Negative (NEGAITVE) Urine Bilirubin Negative (NEGATIVE) Urine Urobilinogen Normal (NORMAL) mg/dL Ur Leukocyte Esterase Negative (NEGATIVE) Urine RBC 0-5 (0-5) Urine WBC 0-5 (0-5) Ur Epithelial Cells Rare Amorphous Sediment Not seen Urine Bacteria Not seen Urine Mucus Not seen 01/31/18 Range/Units 13:00 WBC (4.5-11.0) K/uL RBC (4.30-5.90) M/uL Hgb (12.0-15.0) g/dL Hct (40.0-54.0) % MCV (80-98) fL MCH (27-31) pg MCHC (32-36) % Plt Count (150-400) K/uL Neut % (Auto) (36-66) % Lymph % (Auto) (24-44) % [place] % (Auto) (2-6) % Eos % (Auto) (2-4) % Baso % (Auto) (0-1) % Sodium (140-148) mmol/L Potassium (3.6-5.2) mmol/L Chloride (100-108) mmol/L Carbon Dioxide (21-32) mmol/L Anion Gap (5.0-14.0) mmol/L BUN (7-18) mg/dL Creatinine (0.8-1.3) mg/dL Est Cr Clr Drug Dosing mL/min Estimated GFR (MDRD) (>60) Glucose (74-106) mg/dL Calcium (8.5-10.1) mg/dL Total Bilirubin (0.2-1.0) mg/dL AST (15-37) U/L ALT (12-78) U/L Alkaline Phosphatase (46-116) U/L C-Reactive Protein 6.40 H (0.0-0.3) mg/dL Total Protein (6.4-8.2) g/dL Albumin (3.4-5.0) g/dL Globulin (2.3-3.5) g/dL Albumin/Globulin Ratio (1.2-2.2) Urine Color Urine Appearance Urine pH (4.5-8.0) Ur Specific [place] (1.008-1.030) Urine Protein (NEGATIVE) mg/dL Urine Glucose (UA) (NEGATIVE) mg/dL Urine Ketones (NEGATIVE) mg/dL Urine Occult Blood (NEGATIVE) Urine Nitrite (NEGAITVE) Urine Bilirubin (NEGATIVE) Urine Urobilinogen (NORMAL) mg/dL Ur Leukocyte Esterase (NEGATIVE) Urine RBC (0-5) Urine WBC (0-5) Ur Epithelial Cells Amorphous Sediment Urine Bacteria Urine Mucus Result Diagrams: 01/31/18 13:00 01/31/18 13:00 *Q Meaningful Use (ADM) - VTE *Q VTE Pharmacological Contraindications *Q: Active Hemorrhage - VTE Risk Assess *Q Each Risk Factor Represents 1 Point: None Total Score 1 Point Risk Factors: 0 Each Risk Factor Represents 2 Points: None Total Score 2 Point Risk Factors: 0 Each Risk Factor Represents 3 Points: Age 75 Years or Greater Total Score 3 Point Risk Factors: 3 Each Risk Factor Represents 5 Points: None Total Score 5 Point Risk Factors: 0 Venous Thromboembolism Risk Factor Score *Q: 3 Problem List Initiated/Reviewed/Updated: Yes Orders Last 24hrs: Active Orders 24 hr Category Date Time Status Patient Status Manage Transfer [TRANSFER] Routine ADT 01/31/18 16:06 Ordered CULTURE URINE [RM] Stat Lab 01/31/18 13:00 Received UA W/MICROSCOPIC [URIN] Urgent Lab 01/31/18 13:00 Ordered Sodium Chloride 0.9% [Normal Saline] 1,000 ml Med 01/31/18 13:30 Active IV ASDIRECTED Resuscitation Status Routine Resus Stat 01/31/18 16:09 Ordered Medication Orders Sodium Chloride (Normal Saline) 1,000 mls @ 250 mls/hr IV ASDIRECTED [facility] Last Admin: 01/31/18 13:41 Dose: 250 mls/hr Assessment/Plan Comment:: ASSESSMENT AND PLAN DIVERTICULITIS WITH LOWER GI BLEED-symptoms of left lower quadrant abdominal pain over last 2 days associated with bloody stools today. White blood cell count is elevated and CT scan shows evidence of diverticulitis. -IV fluids for hydration -nothing by mouth - pain medication and anti-emetic therapy as needed -Unasyn 1.5 g IV every 6 hours -serial hemoglobin levels CHRONIC KIDNEY DISEASE STAGE III - closely monitor urine output and renal function CORONARY ARTERY DISEASE-currently asymptomatic -Continue outpatient medical regimen MAINTENANCE ISSUES -DVT prophylaxis; SCUDs, hold on anticoagulation given active bleed -GI prophylaxis; continue outpatient PPI therapy -Goode catheter; not indicated -Nutrition;Nothing by mouth -Nicotine dependence; not required CODE STATUS- FULL CODE ADMISSION STATUS-patient will be admitted to inpatient status, expect at least a 2 night hospital stay for evaluation and management of problems as outlined above. At the time of this admission I do not reasonably expected evaluation and management of this problem will require more than a 96 hour hospital stay. DISPOSITION-anticipate discharge to home after the hospital stay. PRIMARY CARE PROVIDER-Dr. Dorantes
[2018-01-31] MEDS ORDERED: Diazepam 5 MG Tab PO PRN (16:41)
[2018-01-31] MEDS ORDERED: HYDROmorphone 0.5 MG/0.5 ML Syringe IVPUSH PRN (16:41)
[2018-01-31] MEDS ORDERED: Albuterol 0.083% 2.5 MG/3 ML Neb Soln NEB PRN (16:41)
[2018-01-31] MEDS ORDERED: Sodium Chloride 0.9% 10 ML Syringe FLUSH PRN (16:41)
[2018-01-31] MEDS ORDERED: Ondansetron 4 MG/2 ML SDV IV PRN (16:41)
[2018-01-31] MEDS ORDERED: Magnesium Hydroxide 400 MG/5 ML Susp 30 ML Cup PO PRN (16:41)
[2018-01-31] MEDS ORDERED: Polyethylene Glycol 3350 Powder 17 GM Packet PO PRN (16:41)
[2018-01-31] MEDS: Ampicillin/Sulbactam Na 1.5 GM in Sodium Chloride 0.9% 50 ML IV SCH (17:54)
[2018-01-31] MEDS: Sodium Chloride 0.9% 1,000 ML IV SCH (17:55)
[2018-01-31] MEDS: Pantoprazole 40 MG Tab.CR PO SCH (17:56)
[2018-01-31] MEDS: Trospium 20 MG Tab PO SCH (21:13)
[2018-01-31] MEDS: amLODIPine 5 MG Tab PO SCH (21:13)
[2018-01-31] MEDS: Gabapentin 300 MG Cap PO SCH (21:13)
[2018-01-31] MEDS: Albuterol/Ipratropium 3.0-0.5 MG/3 ML Neb Soln NEB SCH (21:19)
[2018-02-01] MEDS: Ampicillin/Sulbactam Na 1.5 GM in Sodium Chloride 0.9% 50 ML IV SCH ×4 (00:18→17:15)
[2018-02-01] MEDS: Sodium Chloride 0.9% 1,000 ML IV SCH (03:36)
--- NOTE | 2018-02-01 06:00 | PCM.SN ---
- Free Text/Narrative Note: chart review o: hemoglobin 11.6 at 2300 a: diverticulitis P: recheck hemogloin in am.
[2018-02-01] MEDS: Albuterol/Ipratropium 3.0-0.5 MG/3 ML Neb Soln NEB SCH ×4 (07:35→20:38)
[2018-02-01] MEDS: FLUoxetine 20 MG Cap PO SCH (08:40)
[2018-02-01] MEDS: Simvastatin 20 MG Tab PO SCH (08:40)
[2018-02-01] MEDS: Trospium 20 MG Tab PO SCH ×2 (08:40→20:42)
[2018-02-01] MEDS: Gabapentin 300 MG Cap PO SCH ×2 (08:41→20:42)
[2018-02-01] MEDS: Pantoprazole 40 MG Tab.CR PO SCH ×2 (08:41→17:16)
[2018-02-01] MEDS: amLODIPine 5 MG Tab PO SCH ×2 (08:41→20:43)
[2018-02-01] MEDS: Furosemide 20 MG Tab PO SCH (08:41)
[2018-02-01] MEDS: Lisinopril 2.5 MG Tab PO SCH (08:42)
[2018-02-01] MEDS: Tamsulosin 0.4 MG Cap.ER PO SCH (08:42)
[2018-02-01] MEDS: Doxazosin 4 MG Tab PO SCH (08:42)
[2018-02-01] MEDS ORDERED: Carbidopa/Levodopa 25-100 MG Tab.ER PO SCH (09:00)
[2018-02-01] MEDS ORDERED: DUTASTERIDE 0.5 MG PO SCH (09:00)
[2018-02-01] MEDS: Carbidopa/Levodopa 25-100 MG Tab PO SCH (09:54)
[2018-02-01] MEDS ORDERED: Magnesium Sulfate/Water 2 GM in Premix Bag 1 BAG IV ONE (10:00)
--- NOTE | 2018-02-01 13:43 | PCM.PN ---
- General Info Date of Service: 02/01/18 Subjective Update: Mr. Botello has improved since admission yesterday, there is been no evidence of active bleeding and his abdominal pain is modestly better than it had been on admission. He has remained hemodynamically stable and has been afebrile. Functional Status: Reports: Pain Controlled. Denies: Urinating - Review of Systems General: Reports: Weakness, Chills. Denies: Fever Pulmonary: Reports: No Symptoms Cardiovascular: Reports: No Symptoms Gastrointestinal: Reports: Abdominal Pain, Decreased Appetite. Denies: Difficulty Swallowing, Nausea, Vomiting Genitourinary: Reports: Frequency, Retention - Patient Data Vitals - Most Recent: Last Vital Signs Temp 96.8 F 02/01/18 10:46 Pulse 81 02/01/18 10:46 Resp 18 02/01/18 10:46 BP 134/74 02/01/18 10:46 Pulse Ox 99 02/01/18 10:46 Weight - Most Recent: 168 lb 6.4 oz I&O - Last 24 Hours: Intake & Output 01/31/18 02/01/18 02/01/18 22:59 06:59 14:59 Intake Total 50 1353 Output Total 0 200 Balance 50 1353 -200 Lab Results Last 24 Hours: Laboratory Results - last 24 hr 01/31/18 01/31/18 01/31/18 Range/Units 13:00 16:41 23:00 WBC (4.5-11.0) K/uL RBC (4.30-5.90) M/uL Hgb 11.9 L 11.6 L (12.0-15.0) g/dL Hct (40.0-54.0) % MCV (80-98) fL MCH (27-31) pg MCHC (32-36) % Plt Count (150-400) K/uL Neut % (Auto) (36-66) % Lymph % (Auto) (24-44) % [place] % (Auto) (2-6) % Eos % (Auto) (2-4) % Baso % (Auto) (0-1) % Sodium (140-148) mmol/L Potassium (3.6-5.2) mmol/L Chloride (100-108) mmol/L Carbon Dioxide (21-32) mmol/L Anion Gap (5.0-14.0) mmol/L BUN (7-18) mg/dL Creatinine (0.8-1.3) mg/dL Est Cr Clr Drug Dosing mL/min Estimated GFR (MDRD) (>60) Glucose (74-106) mg/dL Calcium (8.5-10.1) mg/dL Magnesium (1.8-2.4) mg/dL C-Reactive Protein 6.40 H (0.0-0.3) mg/dL 02/01/18 02/01/18 Range/Units 04:48 04:48 WBC 11.2 H (4.5-11.0) K/uL RBC 3.99 L (4.30-5.90) M/uL Hgb 11.8 L (12.0-15.0) g/dL Hct 35.0 L (40.0-54.0) % MCV 88 (80-98) fL MCH 30 (27-31) pg MCHC 34 (32-36) % Plt Count 237 (150-400) K/uL Neut % (Auto) 69 H (36-66) % Lymph % (Auto) 19 L (24-44) % [place] % (Auto) 7 H (2-6) % Eos % (Auto) 5 H (2-4) % Baso % (Auto) 0 (0-1) % Sodium 142 (140-148) mmol/L Potassium 3.8 (3.6-5.2) mmol/L Chloride 111 H (100-108) mmol/L Carbon Dioxide 23 (21-32) mmol/L Anion Gap 11.8 (5.0-14.0) mmol/L BUN 22 H (7-18) mg/dL Creatinine 1.3 (0.8-1.3) mg/dL Est Cr Clr Drug Dosing 49.07 mL/min Estimated GFR (MDRD) 53 L (>60) Glucose 83 (74-106) mg/dL Calcium 8.3 L (8.5-10.1) mg/dL Magnesium 1.7 L (1.8-2.4) mg/dL C-Reactive Protein (0.0-0.3) mg/dL Med Orders - Current: Current Medications Acetaminophen (Tylenol) 650 mg PO Q4H PRN PRN Reason: Pain (Mild 1-3)/fever Albuterol (Proventil Neb Soln) 2.5 mg NEB Q4H PRN PRN Reason: Shortness Of Breath/wheezing Albuterol/Ipratropium (Duoneb 3.0-0.5 Mg/3 Ml) 3 ml NEB QIDRT [facility] Last Admin: 02/01/18 10:41 Dose: 3 ml Amlodipine Besylate (Norvasc) 5 mg PO BID [facility] Last Admin: 02/01/18 08:41 Dose: 5 mg Carbidopa/Levodopa (Sinemet 25-100 Mg) 0.5 tab PO DAILY [facility] Last Admin: 02/01/18 09:54 Dose: 0.5 tab Diazepam (Valium.) 5 mg PO Q8H PRN PRN Reason: Anxiety Doxazosin Mesylate (Cardura) 4 mg PO DAILY [facility] Last Admin: 02/01/18 08:42 Dose: 4 mg Fluoxetine HCl (Prozac) 40 mg PO DAILY [facility] Last Admin: 02/01/18 08:40 Dose: 40 mg Furosemide (Lasix) 20 mg PO DAILY [facility] Last Admin: 02/01/18 08:41 Dose: 20 mg Gabapentin (Neurontin) 600 mg PO BID [facility] Last Admin: 02/01/18 08:41 Dose: 600 mg Hydromorphone HCl (Dilaudid) 0.5 mg IVPUSH Q2H PRN PRN Reason: Pain Ampicillin Sodium/Sulbactam (Sodium 1.5 gm/ Sodium Chloride) 50 mls @ 100 mls/ hr IV Q6H [facility] Last Admin: 02/01/18 12:00 Dose: 100 mls/hr Lisinopril (Prinivil) 2.5 mg PO DAILY [facility] Last Admin: 02/01/18 08:42 Dose: 2.5 mg Magnesium Hydroxide (Milk Of Magnesia) 30 ml PO Q12H PRN PRN Reason: Constipation Non-Formulary Medication (Dutasteride [Avodart]) 0.5 mg PO DAILY [facility] Ondansetron HCl (Zofran) 4 mg IV Q4H PRN PRN Reason: Nausea/Vomiting Oxycodone HCl (Oxycodone) 15 mg PO Q4H PRN PRN Reason: Pain Last Admin: 02/01/18 08:47 Dose: 15 mg [facility] Admin: 02/01/18 08:41 Dose: 40 mg Polyethylene Glycol (Miralax) 17 gm PO DAILY PRN PRN Reason: Constipation Senna/Docusate Sodium (Senna Plus) 2 tab PO BID PRN PRN Reason: Constipation Simvastatin (Zocor) 40 mg PO DAILY [facility] Last Admin: 02/01/18 08:40 Dose: 40 mg Sodium Chloride (Saline Flush) 10 ml FLUSH ASDIRECTED PRN PRN Reason: Keep Vein Open Tamsulosin HCl (Flomax) 0.4 mg PO DAILY [facility] Last Admin: 02/01/18 08:42 Dose: 0.4 mg Trospium (Sanctura) 20 mg PO BID [facility] Last Admin: 02/01/18 08:40 Dose: 20 mg Discontinued Medications Sodium Chloride (Normal Saline) 1,000 mls @ 250 mls/hr IV ASDIRECTED [facility] Last Admin: 01/31/18 13:41 Dose: 250 mls/hr Levofloxacin/Dextrose 500 mg/ (Premix) 100 mls @ 100 mls/hr IV ONETIME ONE Stop: 01/31/18 15:19 Last Admin: 01/31/18 15:01 Dose: 100 mls/hr Metronidazole 500 mg/ Premix 100 mls @ 100 mls/hr IV ONETIME ONE Stop: 01/31/18 15:20 Last Admin: 01/31/18 16:11 Dose: 100 mls/hr Sodium Chloride (Normal Saline) 1,000 mls @ 125 mls/hr IV ASDIRECTED [facility] Last Admin: 02/01/18 03:36 Dose: 125 mls/hr Magnesium Sulfate 2 gm/ Premix 50 mls @ 25 mls/hr IV ONETIME ONE Stop: 02/01/18 11:59 Last Admin: 02/01/18 10:00 Dose: 25 mls/hr - Exam Quality Assessment: DVT Prophylaxis General: Alert, Oriented, Cooperative, No Acute Distress Lungs: Clear to Auscultation, Normal Respiratory Effort Cardiovascular: Regular Rate, Regular Rhythm, No Murmurs GI/Abdominal Exam: Soft, No Organomegaly, Tender. No: Distended, Guarding, Rigid, Rebound Extremities: Non-Tender, No Pedal Edema Skin: Warm, Dry, Intact - Problem List Review Problem List Initiated/Reviewed/Updated: Yes - My Orders Last 24 Hours: My Active Orders 04/04/18 16:09 Resuscitation Status Routine 01/31/18 16:41 Patient Status [ADT] Routine Ambulate [RC] QID Height and Weight [RC] 0500 Intake and Output [RC] QSHIFT Notify Provider Vital Signs [RC] ASDIRECTED Oxygen Therapy [RC] PRN Peripheral IV Care [RC] . DIRECTED RT Aerosol Therapy [RC] ASDIRECTED Up With Assistance [RC] ASDIRECTED Up to Chair [RC] QID VTE/DVT Education [RC] Per Unit Routine Vital Signs [RC] Q4H Acetaminophen [Tylenol] 650 mg PO Q4H PRN Albuterol [Proventil Neb Soln] 2.5 mg NEB Q4H PRN Diazepam [Valium] 5 mg PO Q8H PRN Docusate Sodium/Sennosides [Senna Plus] 2 tab PO BID PRN HYDROmorphone [Dilaudid] 0.5 mg IVPUSH Q2H PRN Magnesium Hydroxide [Milk of Magnesia] 30 ml PO Q12H PRN Ondansetron [Zofran] 4 mg IV Q4H PRN Polyethylene Glycol 3350 [MiraLAX] 17 gm PO DAILY PRN Sodium Chloride 0.9% [Saline Flush] 10 ml FLUSH ASDIRECTED PRN oxyCODONE 15 mg PO Q4H PRN Peripheral IV Insertion Adult [OM.PC] Routine Sequential Compression Device [OM.PC] Per Unit Routine VTE Pharmacological Contraindications [AST] Per Unit Routine 01/31/18 18:00 Ampicillin/Sulbactam Na [Unasyn] 1.5 gm Sodium Chloride 0.9% [Normal Saline] 50 ml IV Q6H Pantoprazole [ProTONIX] 40 mg PO BIDAC 01/31/18 21:00 Albuterol/Ipratropium [DuoNeb 3.0-0.5 MG/3 ML] 3 ml NEB QIDRT Gabapentin [Neurontin] 600 mg PO BID Trospium [Sanctura] 20 mg PO BID amLODIPine [Norvasc] 5 mg PO BID 02/01/18 09:00 Doxazosin [Cardura] 4 mg PO DAILY Dutasteride [Avodart] 0.5 mg PO DAILY FLUoxetine [PROzac] 40 mg PO DAILY Furosemide [Lasix] 20 mg PO DAILY Lisinopril [Prinivil] 2.5 mg PO DAILY Simvastatin [Zocor] 40 mg PO DAILY Tamsulosin [Flomax] 0.4 mg PO DAILY 02/01/18 10:00 Carbidopa/Levodopa [Sinemet 25-100 mg] 0.5 tab PO DAILY 02/01/18 13:22 Urinary Catheter Assessment [RC] ASDIRECTED 02/01/18 13:30 Insert Goode Catheter [Insert Urinary Catheter] [OM.PC] Q24H 02/01/18 13:38 HGB [HEMOGLOBIN] [HEME] Stat 02/01/18 13:45 Sodium Chloride 0.9% @ 75 MLS/HR(1000ml) Sodium Chloride 0.9% [Normal Saline] 1 ,000 ml IV ASDIRECTED 02/02/18 05:00 BASIC METABOLIC PANEL,BMP [CHEM] Timed CBC WITH AUTO DIFF [HEME] Timed MAGNESIUM [CHEM] Timed - Plan Plan:: ASSESSMENT AND PLAN DIVERTICULITIS WITH LOWER GI BLEED-no further evidence of bleeding since admission, hemodynamically stable, modest improvement in pain -IV fluids for hydration, decrease IV rate to 75 mL per hour -nothing by mouth - pain medication and anti-emetic therapy as needed -Unasyn 1.5 g IV every 6 hours -serial hemoglobin levels CHRONIC KIDNEY DISEASE STAGE III - closely monitor urine output and renal function CORONARY ARTERY DISEASE-currently asymptomatic -Continue outpatient medical regimen MAINTENANCE ISSUES -DVT prophylaxis; SCUDs, hold on anticoagulation given active bleed -GI prophylaxis; continue outpatient PPI therapy -Goode catheter; not indicated -Nutrition;Nothing by mouth -Nicotine dependence; not required CODE STATUS- FULL CODE ADMISSION STATUS-patient will be admitted to inpatient status, expect at least a 2 night hospital stay for evaluation and management of problems as outlined above. At the time of this admission I do not reasonably expected evaluation and management of this problem will require more than a 96 hour hospital stay. DISPOSITION-anticipate discharge to home after the hospital stay. PRIMARY CARE PROVIDER-Dr. Dorantes
[2018-02-01] MEDS ORDERED: Sodium Chloride 0.9% 1,000 ML IV SCH (13:45)
[2018-02-01] MEDS: Acetaminophen 325 MG Tab PO PRN (19:51)
[2018-02-02] MEDS: Ampicillin/Sulbactam Na 1.5 GM in Sodium Chloride 0.9% 50 ML IV SCH ×4 (00:22→17:35)
[2018-02-02] MEDS: Pantoprazole 40 MG Tab.CR PO SCH ×2 (07:35→16:11)
[2018-02-02] MEDS: Doxazosin 4 MG Tab PO SCH ×2 (07:46→08:53)
[2018-02-02] MEDS: amLODIPine 5 MG Tab PO SCH ×3 (07:48→20:20)
[2018-02-02] MEDS: Albuterol/Ipratropium 3.0-0.5 MG/3 ML Neb Soln NEB SCH ×4 (08:06→20:24)
[2018-02-02] MEDS: FLUoxetine 20 MG Cap PO SCH (08:52)
[2018-02-02] MEDS: Gabapentin 300 MG Cap PO SCH ×2 (08:52→20:19)
[2018-02-02] MEDS: Tamsulosin 0.4 MG Cap.ER PO SCH (08:52)
[2018-02-02] MEDS: Simvastatin 20 MG Tab PO SCH (08:52)
[2018-02-02] MEDS: Furosemide 20 MG Tab PO SCH (08:52)
[2018-02-02] MEDS: Lisinopril 2.5 MG Tab PO SCH (08:54)
[2018-02-02] MEDS: Carbidopa/Levodopa 25-100 MG Tab PO SCH (08:56)
[2018-02-02] MEDS: Trospium 20 MG Tab PO SCH ×2 (08:56→20:21)
--- NOTE | 2018-02-02 12:38 | PCM.PN ---
- General Info Date of Service: 02/02/18 Subjective Update: Mr. Botello has shown further improvement since yesterday, abdominal pain has almost totally resolved and there is been no further evidence of active bleeding. Vital signs have remained stable and he has been afebrile. - Review of Systems General: Reports: Weakness. Denies: Fever, Chills Pulmonary: Reports: No Symptoms Cardiovascular: Reports: No Symptoms Gastrointestinal: Reports: Abdominal Pain. Denies: Constipation, Diarrhea, Difficulty Swallowing, Hematochezia, Melena, Nausea, Vomiting Genitourinary: Reports: Other (Goode catheter secondary to urinary retention) - Patient Data Vitals - Most Recent: Last Vital Signs Temp 96.8 F 02/02/18 11:00 Pulse 85 02/02/18 11:16 Resp 14 02/02/18 11:00 BP 149/74 H 02/02/18 11:00 Pulse Ox 87 L 02/02/18 11:16 Weight - Most Recent: 164 lb I&O - Last 24 Hours: Intake & Output 02/01/18 02/02/18 02/02/18 22:59 06:59 14:59 Intake Total 968 910 547 Output Total 900 1650 900 Balance 77 -810 353 Lab Results Last 24 Hours: Laboratory Results - last 24 hr 02/01/18 02/02/18 02/02/18 Range/Units 13:38 05:58 05:58 WBC 8.1 (4.5-11.0) K/uL RBC 3.83 L (4.30-5.90) M/uL Hgb 12.5 11.3 L (12.0-15.0) g/dL Hct 34.0 L (40.0-54.0) % MCV 89 (80-98) fL MCH 30 (27-31) pg MCHC 33 (32-36) % Plt Count 248 (150-400) K/uL Neut % (Auto) 62 (36-66) % Lymph % (Auto) 25 (24-44) % [place] % (Auto) 9 H (2-6) % Eos % (Auto) 4 (2-4) % Baso % (Auto) 1 (0-1) % Sodium 148 (140-148) mmol/L Potassium 3.8 (3.6-5.2) mmol/L Chloride 113 H (100-108) mmol/L Carbon Dioxide 25 (21-32) mmol/L Anion Gap 13.8 (5.0-14.0) mmol/L BUN 17 (7-18) mg/dL Creatinine 1.3 (0.8-1.3) mg/dL Est Cr Clr Drug Dosing 48.48 mL/min Estimated GFR (MDRD) 53 L (>60) Glucose 77 (74-106) mg/dL Calcium 8.3 L (8.5-10.1) mg/dL Magnesium 2.0 (1.8-2.4) mg/dL Art Results Last 24 Hours: Microbiology 01/31/18 13:00 Urine Culture - Preliminary Urine, Bladder NO GROWTH AFTER 1 DAY Med Orders - Current: Current Medications Acetaminophen (Tylenol) 650 mg PO Q4H PRN PRN Reason: Pain (Mild 1-3)/fever Last Admin: 02/01/18 19:51 Dose: 650 mg Albuterol (Proventil Neb Soln) 2.5 mg NEB Q4H PRN PRN Reason: Shortness Of Breath/wheezing Albuterol/Ipratropium (Duoneb 3.0-0.5 Mg/3 Ml) 3 ml NEB QIDRT [facility] Last Admin: 02/02/18 11:13 Dose: 3 ml Amlodipine Besylate (Norvasc) 5 mg PO BID [facility] Last Admin: 02/02/18 08:54 Dose: Not Given Carbidopa/Levodopa (Sinemet 25-100 Mg) 0.5 tab PO DAILY [facility] Last Admin: 02/02/18 08:56 Dose: 0.5 tab Diazepam (Valium.) 5 mg PO Q8H PRN PRN Reason: Anxiety Doxazosin Mesylate (Cardura) 4 mg PO DAILY [facility] Last Admin: 02/02/18 08:53 Dose: Not Given Fluoxetine HCl (Prozac) 40 mg PO DAILY [facility] Last Admin: 02/02/18 08:52 Dose: 40 mg Furosemide (Lasix) 20 mg PO DAILY [facility] Last Admin: 02/02/18 08:52 Dose: 20 mg Gabapentin (Neurontin) 600 mg PO BID [facility] Last Admin: 02/02/18 08:52 Dose: 600 mg Hydromorphone HCl (Dilaudid) 0.5 mg IVPUSH Q2H PRN PRN Reason: Pain Ampicillin Sodium/Sulbactam (Sodium 1.5 gm/ Sodium Chloride) 50 mls @ 100 mls/ hr IV Q6H [facility] Last Admin: 02/02/18 12:22 Dose: 100 mls/hr Lisinopril (Prinivil) 2.5 mg PO DAILY [facility] Last Admin: 02/02/18 08:54 Dose: 2.5 mg Magnesium Hydroxide (Milk Of Magnesia) 30 ml PO Q12H PRN PRN Reason: Constipation Non-Formulary Medication (Dutasteride [Avodart]) 0.5 mg PO DAILY [facility] Ondansetron HCl (Zofran) 4 mg IV Q4H PRN PRN Reason: Nausea/Vomiting Oxycodone HCl (Oxycodone) 15 mg PO Q4H PRN PRN Reason: Pain Last Admin: 02/02/18 08:51 Dose: 15 mg [facility] Last Admin: 02/02/18 07:35 Dose: 40 mg Polyethylene Glycol (Miralax) 17 gm PO DAILY PRN PRN Reason: Constipation Senna/Docusate Sodium (Senna Plus) 2 tab PO BID PRN PRN Reason: Constipation Simvastatin (Zocor) 40 mg PO DAILY [facility] Last Admin: 02/02/18 08:52 Dose: 40 mg Sodium Chloride (Saline Flush) 10 ml FLUSH ASDIRECTED PRN PRN Reason: Keep Vein Open Tamsulosin HCl (Flomax) 0.4 mg PO DAILY [facility] Last Admin: 02/02/18 08:52 Dose: 0.4 mg Trospium (Sanctura) 20 mg PO BID [facility] Last Admin: 02/02/18 08:56 Dose: 20 mg Discontinued Medications Sodium Chloride (Normal Saline) 1,000 mls @ 250 mls/hr IV ASDIRECTED [facility] Last Admin: 01/31/18 13:41 Dose: 250 mls/hr Levofloxacin/Dextrose 500 mg/ (Premix) 100 mls @ 100 mls/hr IV ONETIME ONE Stop: 01/31/18 15:19 Last Admin: 01/31/18 15:01 Dose: 100 mls/hr Metronidazole 500 mg/ Premix 100 mls @ 100 mls/hr IV ONETIME ONE Stop: 01/31/18 15:20 Last Admin: 01/31/18 16:11 Dose: 100 mls/hr Sodium Chloride (Normal Saline) 1,000 mls @ 125 mls/hr IV ASDIRECTED [facility] Last Infusion: 02/01/18 13:50 Dose: Infused Magnesium Sulfate 2 gm/ Premix 50 mls @ 25 mls/hr IV ONETIME ONE Stop: 02/01/18 11:59 Last Admin: 02/01/18 10:00 Dose: 25 mls/hr Sodium Chloride (Normal Saline) 1,000 mls @ 75 mls/hr IV ASDIRECTED [facility] Last Admin: 02/02/18 04:32 Dose: 75 mls/hr - Exam Quality Assessment: DVT Prophylaxis General: Alert, Oriented, Cooperative, No Acute Distress Lungs: Clear to Auscultation, Normal Respiratory Effort Cardiovascular: Regular Rate, Regular Rhythm, No Murmurs GI/Abdominal Exam: Soft, No Organomegaly, Tender. No: Distended, Guarding, Rigid, Rebound Extremities: Non-Tender, No Pedal Edema Skin: Warm, Dry, Intact - Problem List Review Problem List Initiated/Reviewed/Updated: Yes - My Orders Last 24 Hours: My Active Orders 02/02/18 11:32 Convert IV to Saline Lock [OM.PC] Routine 02/02/18 11:34 Remove Goode Catheter [Urinary Catheter Removal] [RC] Per Unit Routine 02/02/18 Breakfast Full Liquid Diet [DIET] 02/03/18 05:11 HGB [HEMOGLOBIN] [HEME] AM - Plan Plan:: ASSESSMENT AND PLAN DIVERTICULITIS WITH LOWER GI BLEED-no further evidence of bleeding since admission, left lower quadrant abdominal pain has almost totally resolved -saline lock IV -full liquid diet - pain medication and anti-emetic therapy as needed -Unasyn 1.5 g IV every 6 hours -serial hemoglobin levels Bladder outlet obstruction-secondary to BPH, causing urinary retention -Trial of Goode catheter removal today CHRONIC KIDNEY DISEASE STAGE III - closely monitor urine output and renal function CORONARY ARTERY DISEASE-currently asymptomatic -Continue outpatient medical regimen MAINTENANCE ISSUES -DVT prophylaxis; SCUDs, hold on anticoagulation given active bleed -GI prophylaxis; continue outpatient PPI therapy -Goode catheter; not indicated -Nutrition;Nothing by mouth -Nicotine dependence; not required CODE STATUS- FULL CODE ADMISSION STATUS-patient will be admitted to inpatient status, expect at least a 2 night hospital stay for evaluation and management of problems as outlined above. At the time of this admission I do not reasonably expected evaluation and management of this problem will require more than a 96 hour hospital stay. DISPOSITION-anticipate discharge to home after the hospital stay. PRIMARY CARE PROVIDER-Dr. Dorantes
[2018-02-03] MEDS: Ampicillin/Sulbactam Na 1.5 GM in Sodium Chloride 0.9% 50 ML IV SCH ×5 (00:11→23:48)
[2018-02-03] MEDS: Albuterol/Ipratropium 3.0-0.5 MG/3 ML Neb Soln NEB SCH ×4 (07:38→20:19)
[2018-02-03] MEDS: Furosemide 20 MG Tab PO SCH (08:03)
[2018-02-03] MEDS: Pantoprazole 40 MG Tab.CR PO SCH ×2 (08:03→16:08)
[2018-02-03] MEDS: Tamsulosin 0.4 MG Cap.ER PO SCH (08:04)
[2018-02-03] MEDS: Gabapentin 300 MG Cap PO SCH ×2 (08:04→20:20)
[2018-02-03] MEDS: amLODIPine 5 MG Tab PO SCH ×2 (08:05→20:21)
[2018-02-03] MEDS: FLUoxetine 20 MG Cap PO SCH (08:06)
[2018-02-03] MEDS: Lisinopril 2.5 MG Tab PO SCH (08:06)
[2018-02-03] MEDS: Simvastatin 20 MG Tab PO SCH (08:07)
[2018-02-03] MEDS: Trospium 20 MG Tab PO SCH ×2 (08:07→20:21)
[2018-02-03] MEDS: Doxazosin 4 MG Tab PO SCH (08:07)
[2018-02-03] MEDS: Carbidopa/Levodopa 25-100 MG Tab PO SCH (08:08)
--- NOTE | 2018-02-03 13:04 | PCM.PN ---
- General Info Date of Service: 02/03/18 Subjective Update: Mr. Botello has been stable over the past 24 hours and has tolerated a full liquid diet without significant difficulty. Abdominal pain has totally resolved and he has been afebrile as well as hemodynamically stable. - Review of Systems General: Denies: Fever, Weakness, Chills Pulmonary: Reports: No Symptoms Cardiovascular: Reports: No Symptoms Gastrointestinal: Reports: No Symptoms - Patient Data Vitals - Most Recent: Last Vital Signs Temp 97.6 F 02/03/18 11:58 Pulse 86 02/03/18 11:58 Resp 18 02/03/18 11:58 BP 175/88 H 02/03/18 11:58 Pulse Ox 91 L 02/03/18 11:58 Weight - Most Recent: 156 lb 12.8 oz I&O - Last 24 Hours: Intake & Output 02/02/18 02/03/18 02/03/18 22:59 06:59 14:59 Intake Total 330 100 600 Output Total 350 2550 1650 Balance -20 -2450 -1050 Lab Results Last 24 Hours: Laboratory Results - last 24 hr 02/03/18 Range/Units 05:11 Hgb 11.3 L (12.0-15.0) g/dL Art Results Last 24 Hours: Microbiology 01/31/18 13:00 Urine Culture - Final Urine, Bladder NO GROWTH AFTER 2 DAYS Med Orders - Current: Current Medications Acetaminophen (Tylenol) 650 mg PO Q4H PRN PRN Reason: Pain (Mild 1-3)/fever Last Admin: 02/01/18 19:51 Dose: 650 mg Albuterol (Proventil Neb Soln) 2.5 mg NEB Q4H PRN PRN Reason: Shortness Of Breath/wheezing Albuterol/Ipratropium (Duoneb 3.0-0.5 Mg/3 Ml) 3 ml NEB QIDRT [facility] Last Admin: 02/03/18 11:05 Dose: 3 ml Amlodipine Besylate (Norvasc) 5 mg PO BID [facility] Last Admin: 02/03/18 08:05 Dose: 5 mg Carbidopa/Levodopa (Sinemet 25-100 Mg) 0.5 tab PO DAILY [facility] Last Admin: 02/03/18 08:08 Dose: 0.5 tab Diazepam (Valium.) 5 mg PO Q8H PRN PRN Reason: Anxiety Doxazosin Mesylate (Cardura) 4 mg PO DAILY [facility] Last Admin: 02/03/18 08:07 Dose: 4 mg Fluoxetine HCl (Prozac) 40 mg PO DAILY [facility] Last Admin: 02/03/18 08:06 Dose: 40 mg Furosemide (Lasix) 20 mg PO DAILY [facility] Last Admin: 02/03/18 08:03 Dose: 20 mg Gabapentin (Neurontin) 600 mg PO BID [facility] Last Admin: 02/03/18 08:04 Dose: 600 mg Hydromorphone HCl (Dilaudid) 0.5 mg IVPUSH Q2H PRN PRN Reason: Pain Ampicillin Sodium/Sulbactam (Sodium 1.5 gm/ Sodium Chloride) 50 mls @ 100 mls/ hr IV Q6H [facility] Last Admin: 02/03/18 12:08 Dose: 100 mls/hr Lisinopril (Prinivil) 2.5 mg PO DAILY [facility] Last Admin: 02/03/18 08:06 Dose: 2.5 mg Magnesium Hydroxide (Milk Of Magnesia) 30 ml PO Q12H PRN PRN Reason: Constipation Non-Formulary Medication (Dutasteride [Avodart]) 0.5 mg PO DAILY [facility] Ondansetron HCl (Zofran) 4 mg IV Q4H PRN PRN Reason: Nausea/Vomiting Oxycodone HCl (Oxycodone) 15 mg PO Q4H PRN PRN Reason: Pain Last Admin: 02/03/18 09:48 Dose: 15 mg [facility] Last Admin: 02/03/18 08:03 Dose: 40 mg Polyethylene Glycol (Miralax) 17 gm PO DAILY PRN PRN Reason: Constipation Senna/Docusate Sodium (Senna Plus) 2 tab PO BID PRN PRN Reason: Constipation Simvastatin (Zocor) 40 mg PO DAILY [facility] Last Admin: 02/03/18 08:07 Dose: 40 mg Sodium Chloride (Saline Flush) 10 ml FLUSH ASDIRECTED PRN PRN Reason: Keep Vein Open Tamsulosin HCl (Flomax) 0.4 mg PO DAILY [facility] Last Admin: 02/03/18 08:04 Dose: 0.4 mg Trospium (Sanctura) 20 mg PO BID [facility] Last Admin: 02/03/18 08:07 Dose: 20 mg Discontinued Medications Sodium Chloride (Normal Saline) 1,000 mls @ 250 mls/hr IV ASDIRECTED [facility] Last Admin: 01/31/18 13:41 Dose: 250 mls/hr Levofloxacin/Dextrose 500 mg/ (Premix) 100 mls @ 100 mls/hr IV ONETIME ONE Stop: 01/31/18 15:19 Last Admin: 01/31/18 15:01 Dose: 100 mls/hr Metronidazole 500 mg/ Premix 100 mls @ 100 mls/hr IV ONETIME ONE Stop: 01/31/18 15:20 Last Admin: 01/31/18 16:11 Dose: 100 mls/hr Sodium Chloride (Normal Saline) 1,000 mls @ 125 mls/hr IV ASDIRECTED [facility] Last Infusion: 02/01/18 13:50 Dose: Infused Magnesium Sulfate 2 gm/ Premix 50 mls @ 25 mls/hr IV ONETIME ONE Stop: 02/01/18 11:59 Last Admin: 02/01/18 10:00 Dose: 25 mls/hr Sodium Chloride (Normal Saline) 1,000 mls @ 75 mls/hr IV ASDIRECTED [facility] Last Admin: 02/02/18 04:32 Dose: 75 mls/hr - Exam Quality Assessment: DVT Prophylaxis General: Alert, Oriented, Cooperative, No Acute Distress Lungs: Clear to Auscultation, Normal Respiratory Effort Cardiovascular: Regular Rate, Regular Rhythm, No Murmurs GI/Abdominal Exam: Soft, Non-Tender, No Organomegaly, No Distention Extremities: Non-Tender, No Pedal Edema Skin: Warm, Dry, Intact - Problem List Review Problem List Initiated/Reviewed/Updated: Yes - My Orders Last 24 Hours: My Active Orders 02/03/18 00:24 Urinary Catheter Assessment [RC] Q12H 02/03/18 00:30 Goode Catheter Insertion [Insert Urinary Catheter] [OM.PC] Q24H 02/03/18 Breakfast GI Soft Low Fiber [Soft Diet] [DIET] - Plan Plan:: ASSESSMENT AND PLAN DIVERTICULITIS WITH LOWER GI BLEED-no further evidence of bleeding since admission, left lower quadrant abdominal pain has totally resolved -saline lock IV -Soft low residue diet - pain medication and anti-emetic therapy as needed -Unasyn 1.5 g IV every 6 hours -serial hemoglobin levels Bladder outlet obstruction-secondary to BPH, causing urinary retention, failed removal of Goode catheter yesterday. High post void residuals on bladder scan -Outpatient follow-up with urology -Leave Goode catheter in place until seen by urology CHRONIC KIDNEY DISEASE STAGE III - closely monitor urine output and renal function CORONARY ARTERY DISEASE-currently asymptomatic -Continue outpatient medical regimen MAINTENANCE ISSUES -DVT prophylaxis; SCUDs, hold on anticoagulation given active bleed -GI prophylaxis; continue outpatient PPI therapy -Goode catheter; not indicated -Nutrition;Nothing by mouth -Nicotine dependence; not required CODE STATUS- FULL CODE ADMISSION STATUS-patient will be admitted to inpatient status, expect at least a 2 night hospital stay for evaluation and management of problems as outlined above. At the time of this admission I do not reasonably expected evaluation and management of this problem will require more than a 96 hour hospital stay. DISPOSITION-anticipate discharge to home after the hospital stay. PRIMARY CARE PROVIDER-Dr. Dorantes
[2018-02-04] MEDS: Ampicillin/Sulbactam Na 1.5 GM in Sodium Chloride 0.9% 50 ML IV SCH (05:47)
[2018-02-04] MEDS: Acetaminophen 325 MG Tab PO PRN (05:51)
[2018-02-04 07:21] VITALS: BP 165/86
[2018-02-04] MEDS: Albuterol/Ipratropium 3.0-0.5 MG/3 ML Neb Soln NEB SCH ×2 (07:42→10:51)
[2018-02-04] MEDS: Trospium 20 MG Tab PO SCH (08:20)
[2018-02-04] MEDS: Carbidopa/Levodopa 25-100 MG Tab PO SCH (08:20)
[2018-02-04] MEDS: Simvastatin 20 MG Tab PO SCH (08:20)
[2018-02-04] MEDS: Doxazosin 4 MG Tab PO SCH (08:20)
[2018-02-04] MEDS: Furosemide 20 MG Tab PO SCH (08:21)
[2018-02-04] MEDS: Tamsulosin 0.4 MG Cap.ER PO SCH (08:21)
[2018-02-04] MEDS: Lisinopril 2.5 MG Tab PO SCH (08:21)
[2018-02-04] MEDS: Pantoprazole 40 MG Tab.CR PO SCH (08:22)
[2018-02-04] MEDS: Gabapentin 300 MG Cap PO SCH (08:22)
[2018-02-04] MEDS: FLUoxetine 20 MG Cap PO SCH (08:22)
[2018-02-04] MEDS: amLODIPine 5 MG Tab PO SCH (08:22)
--- NOTE | 2018-02-04 11:08 | PCM.DCSUM1 ---
Discharge Summary - Hospital Course Brief History: Mr. Botello is a 77-year-old gentleman who was admitted through the emergency department with left lower quadrant abdominal pain and lower GI bleed secondary to diverticulitis. - Discharge Data Discharge Date: 02/04/18 Discharge Disposition: Home, Self-Care 01 Condition: Good - Discharge Diagnosis/Problem(s) (1) BPH with urinary obstruction SNOMED Code(s): 437937335 ICD Code: N40.1 - BENIGN PROSTATIC HYPERPLASIA WITH LOWER URINARY TRACT SYMP ; N13.8 - OTHER OBSTRUCTIVE AND REFLUX UROPATHY Status: Acute Current Visit : Yes (2) Diverticulitis SNOMED Code(s): 885504650 ICD Code: K57.92 - DVTRCLI OF INTEST, PART UNSP, W/O PERF OR ABSCESS W/O BLEED Status: Acute Current Visit: Yes (3) GI bleeding SNOMED Code(s): 23812189 ICD Code: K92.2 - GASTROINTESTINAL HEMORRHAGE, UNSPECIFIED Status: Acute Current Visit: Yes (4) Stage III chronic kidney disease SNOMED Code(s): 789961068 ICD Code: N18.3 - CHRONIC KIDNEY DISEASE, STAGE 3 (MODERATE) Status: Chronic Current Visit: No - Patient Summary/Data Hospital Course: Mr. Pruitt is a 77-year-old gentleman who was admitted through the emergency department with abdominal pain, fever, and lower GI bleeding secondary to diverticulitis. He does have a history of multiple other underlying medical problems including coronary artery disease and Parkinson's. Two days prior to admission noted onset of left lower quadrant abdominal pain, pain has progressive the increased in the 2 days prior to admission and on the day of admission noted onset of bloody stools. On evaluation in the emergency department he is noted to have an elevated white blood cell count and CT scan of the abdomen shows evidence of diverticulitis. Initial hemoglobin is 13.3 and he has had no further evidence of active bleeding while in the emergency department. On admission he was given IV fluids for hydration and kept nothing by mouth because of the bleed and diverticulitis. Serial hemoglobin levels were obtained and after initial drop likely secondary to rehydration hemoglobin level remained stable throughout the rest of his hospital stay. He had no further evidence of significant GI bleed while hospitalized. He was started on IV antibiotic therapy with Unasyn for management of the diverticulitis. Pain gradually improved during hospitalization and he was initially started on a full liquid diet, after that was tolerated for 24 hours his diet was advanced to a soft mechanical low residue diet. By the time of discharge his left lower quadrant abdominal pain had resolved and he been afebrile for several days with normalization of his white blood cell count. Hospital course complicated by urinary retention, he was found to have low urine outputs with significant post void residual volumes. Goode catheter was placed and left in place for 2 days after which it was removed. After removal continued to have frequent small- volume urinations with persistent post void residuals in the range of 5-600 mL. For this reason the catheter was placed back in and will be left in at the time of discharge. Urology consult will be scheduled for the patient for follow-up of his BPH with bladder outlet obstruction. Follow-up appointment will be scheduled with his primary care provider Dr. Dorantes within one week. Activity will be as tolerated. And he will be placed on a one-week course of oral antibiotic therapy with Augmentin. He should take a probiotic twice daily over the next several weeks. - Patient Instructions Diet: GI Soft/Low Residue/Low Fiber Activity: As Tolerated Other/Special Instructions: Please schedule follow-up appointment with Dr. Dorantes within one week. Please schedule urology consult for management of BPH and bladder outlet obstruction. Please instruct patient to take probiotic twice daily. - Discharge Plan Prescriptions/Med Rec: Amoxicillin/Potassium Clav [Augmentin 875-125 Tablet] 1 each PO BID #12 tablet Lactobacillus Acidophilus [Acidophilus Lactobacillus] 1 each PO BID #60 capsule Home Medications: Home Meds Doxazosin Mesylate 4 mg PO DAILY 09/14/13 [History] FLUoxetine HCl [Fluoxetine HCl] 40 mg PO DAILY 09/14/13 [History] Furosemide 20 mg PO DAILY 09/14/13 [History] Lisinopril 2.5 mg PO DAILY 09/14/13 [History] Omeprazole 20 mg PO BID 09/14/13 [History] Tamsulosin HCl 0.4 mg PO DAILY 09/14/13 [History] amLODIPine [Norvasc] 5 mg PO BID 09/14/13 [History] Albuterol Sulfate [Ventolin Hfa] 2 puff INH Q4H PRN 07/14/16 [History] Diazepam [Valium] 5 mg PO Q8H PRN 07/14/16 [History] Dutasteride [Avodart] 0.5 mg PO DAILY 07/14/16 [History] Gabapentin [Neurontin] 600 mg PO BID 07/14/16 [History] Simvastatin [Zocor] 40 mg PO DAILY 07/14/16 [History] Solifenacin [Vesicare] 5 mg PO BEDTIME 07/14/16 [History] oxyCODONE 15 mg PO Q4H PRN 07/14/16 [History] Cyclobenzaprine [Flexeril] 10 mg PO TID PRN 10/06/17 [History] FLUoxetine [PROzac] 20 mg PO DAILY 10/06/17 [History] Sennosides/Docusate Sodium [Senna-Docusate Sodium] 2 tab PO BID PRN 01/31/18 [ History] Carbidopa/Levodopa [Carbidopa-Levodopa 25-100 Tab] 0.5 tab PO DAILY 02/01/18 [ History] Amoxicillin/Potassium Clav [Augmentin 875-125 Tablet] 1 each PO BID #12 tablet 02/04/18 [Rx] Lactobacillus Acidophilus [Acidophilus Lactobacillus] 1 each PO BID #60 capsule 02/04/18 [Rx] Referrals: Dallas Dorantes MD [Primary Care Provider] - - Discharge Summary/Plan Comment DC Time >30 min.: No - Patient Data Vitals - Most Recent: Last Vital Signs Temp 96.2 F 02/04/18 07:00 Pulse 66 02/04/18 07:00 Resp 16 02/04/18 07:00 BP 165/86 H 02/04/18 08:22 Pulse Ox 96 02/04/18 07:00 Weight - Most Recent: 165 lb 6.4 oz I&O - Last 24 hours: Intake & Output 02/03/18 02/04/18 02/04/18 22:59 06:59 14:59 Intake Total 770 820 Output Total 600 1400 Balance 170 -580 Med Orders - Current: Current Medications Acetaminophen (Tylenol) 650 mg PO Q4H PRN PRN Reason: Pain (Mild 1-3)/fever Last Admin: 02/04/18 05:51 Dose: 650 mg Albuterol (Proventil Neb Soln) 2.5 mg NEB Q4H PRN PRN Reason: Shortness Of Breath/wheezing Albuterol/Ipratropium (Duoneb 3.0-0.5 Mg/3 Ml) 3 ml NEB QIDRT [facility] Last Admin: 02/04/18 10:51 Dose: 3 ml Amlodipine Besylate (Norvasc) 5 mg PO BID [facility] Last Admin: 02/04/18 08:22 Dose: 5 mg Carbidopa/Levodopa (Sinemet 25-100 Mg) 0.5 tab PO DAILY [facility] Last Admin: 02/04/18 08:20 Dose: 0.5 tab Diazepam (Valium.) 5 mg PO Q8H PRN PRN Reason: Anxiety Doxazosin Mesylate (Cardura) 4 mg PO DAILY [facility] Last Admin: 02/04/18 08:20 Dose: 4 mg Fluoxetine HCl (Prozac) 40 mg PO DAILY [facility] Last Admin: 02/04/18 08:22 Dose: 40 mg Furosemide (Lasix) 20 mg PO DAILY [facility] Last Admin: 02/04/18 08:21 Dose: 20 mg Gabapentin (Neurontin) 600 mg PO BID [facility] Last Admin: 02/04/18 08:22 Dose: 600 mg Hydromorphone HCl (Dilaudid) 0.5 mg IVPUSH Q2H PRN PRN Reason: Pain Ampicillin Sodium/Sulbactam (Sodium 1.5 gm/ Sodium Chloride) 50 mls @ 100 mls/ hr IV Q6H [facility] Last Admin: 02/04/18 05:47 Dose: 100 mls/hr Lisinopril (Prinivil) 2.5 mg PO DAILY [facility] Last Admin: 02/04/18 08:21 Dose: 2.5 mg Magnesium Hydroxide (Milk Of Magnesia) 30 ml PO Q12H PRN PRN Reason: Constipation Ondansetron HCl (Zofran) 4 mg IV Q4H PRN PRN Reason: Nausea/Vomiting Oxycodone HCl (Oxycodone) 15 mg PO Q4H PRN PRN Reason: Pain Last Admin: 02/04/18 03:08 Dose: 15 mg [facility]oprazole [facility] Last Admin: 02/04/18 08:22 Dose: 40 mg Polyethylene Glycol (Miralax) 17 gm PO DAILY PRN PRN Reason: Constipation Senna/Docusate Sodium (Senna Plus) 2 tab PO BID PRN PRN Reason: Constipation Last Admin: 02/03/18 16:06 Dose: 2 tab Simvastatin (Zocor) 40 mg PO DAILY [facility] Last Admin: 02/04/18 08:20 Dose: 40 mg Sodium Chloride (Saline Flush) 10 ml FLUSH ASDIRECTED PRN PRN Reason: Keep Vein Open Tamsulosin HCl (Flomax) 0.4 mg PO DAILY [facility] Last Admin: 02/04/18 08:21 Dose: 0.4 mg Trospium (Sanctura) 20 mg PO BID [facility] Last Admin: 02/04/18 08:20 Dose: 20 mg Discontinued Medications Sodium Chloride (Normal Saline) 1,000 mls @ 250 mls/hr IV ASDIRECTED [facility] Last Admin: 01/31/18 13:41 Dose: 250 mls/hr Levofloxacin/Dextrose 500 mg/ (Premix) 100 mls @ 100 mls/hr IV ONETIME ONE Stop: 01/31/18 15:19 Last Admin: 01/31/18 15:01 Dose: 100 mls/hr Metronidazole 500 mg/ Premix 100 mls @ 100 mls/hr IV ONETIME ONE Stop: 01/31/18 15:20 Last Admin: 01/31/18 16:11 Dose: 100 mls/hr Sodium Chloride (Normal Saline) 1,000 mls @ 125 mls/hr IV ASDIRECTED [facility] Last Infusion: 02/01/18 13:50 Dose: Infused Magnesium Sulfate 2 gm/ Premix 50 mls @ 25 mls/hr IV ONETIME ONE Stop: 02/01/18 11:59 Last Admin: 02/01/18 10:00 Dose: 25 mls/hr Sodium Chloride (Normal Saline) 1,000 mls @ 75 mls/hr IV ASDIRECTED [facility] Last Admin: 02/02/18 04:32 Dose: 75 mls/hr - Exam Quality Assessment: Reports: DVT Prophylaxis General: Reports: Alert, Oriented, Cooperative, No Acute Distress Lungs: Reports: Clear to Auscultation, Normal Respiratory Effort Cardiovascular: Reports: Regular Rate, Regular Rhythm, No Murmurs GI/Abdominal Exam: Soft, Non-Tender, No Organomegaly, No Distention Extremities: Non-Tender, No Pedal Edema Skin: Reports: Warm, Dry *Q Meaningful Use (DIS) - VTE *Q VTE Pharmacological Contraindications *Q: Active Hemorrhage
== END 2018-02-04 12:54 | disposition home or self-care (01) | DRG 379 ==
LOC: JP.ED 12:37 → JP.MS 16:06
PROVIDERS: ADMIT Hospitalist; ATTEND Hospitalist
DX: K57.33 Diverticulitis of large intestine without perforation or abscess with bleeding (principal); G20 Parkinson's disease; F17.210 Nicotine dependence, cigarettes, uncomplicated; I25.10 Atherosclerotic heart disease of native coronary artery without angina pectoris; I12.9 Hypertensive chronic kidney disease with stage 1 through stage 4 chronic kidney disease, or unspecified chronic kidney disease; N18.3 Chronic kidney disease, stage 3 (moderate); K62.5 Hemorrhage of anus and rectum; R50.9 Fever, unspecified; R10.32 Left lower quadrant pain; E78.00 Pure hypercholesterolemia, unspecified; Z86.73 Personal history of transient ischemic attack (TIA), and cerebral infarction without residual deficits; N40.1 Benign prostatic hyperplasia with lower urinary tract symptoms; R33.8 Other retention of urine; F41.9 Anxiety disorder, unspecified; F32.9 Major depressive disorder, single episode, unspecified; Z95.1 Presence of aortocoronary bypass graft; H91.90 Unspecified hearing loss, unspecified ear; Z88.5 Allergy status to narcotic agent; Z96.659 Presence of unspecified artificial knee joint
CPT/HCPCS: 36415; 74176 ×2; 80053; 81001; 85025; 86140; 87086; 96360; 96361; 99285; J1956; J7040; 51702; 51798; 80048; 83735; 85018; 94640; A9270-GY; J0287; J3475; J7050; J7620

== ENCOUNTER 2018-02-16 13:17 | Emergency (ER) | payer MEDICARE, BC ==
[2018-02-16 13:35] VITALS: BP 167/97
--- NOTE | 2018-02-16 14:13 | EDM.PDOC ---
ED HPI GENERAL MEDICAL PROBLEM - General Chief Complaint: Genitourinary Problem Stated Complaint: BLOOD IN URINE Time Seen by Provider: 02/16/18 13:39 Source of Information: Reports: Patient, Family, Old Records, RN Notes Reviewed History Limitations: Reports: No Limitations - History of Present Illness INITIAL COMMENTS - FREE TEXT/NARRATIVE: 77-year-old gentleman presents to emergency department today with complaint of blood in his urine, he has a known history of BPH with urinary retention was recently hospitalized January 31 through the for diverticulitis with GI bleed. At that time he had urinary retention catheter was placed. He has been evaluated by both his primary care and urology urology he felt he was not a candidate for TURP procedure but a second urologist was consulted for other procedures. At this time he remains asymptomatic no lightheadedness no syncopal events the blood in his urine is blood-tinged urine it's not alyce blood, also underwent CT scan of the abdomen on January 31 which showed active diverticulitis no acute abnormality in the urinary system - Related Data Allergies Allergy/AdvReac Type Severity Reaction Status Date / Time morphine Allergy Severe Shortness Verified 01/31/18 12:54 of Breath Home Meds: Home Meds Doxazosin Mesylate 4 mg PO DAILY 09/14/13 [History] FLUoxetine HCl [Fluoxetine HCl] 40 mg PO DAILY 09/14/13 [History] Furosemide 20 mg PO DAILY 09/14/13 [History] Lisinopril 2.5 mg PO DAILY 09/14/13 [History] Omeprazole 20 mg PO BID 09/14/13 [History] Tamsulosin HCl 0.4 mg PO DAILY 09/14/13 [History] amLODIPine [Norvasc] 5 mg PO BID 09/14/13 [History] Albuterol Sulfate [Ventolin Hfa] 2 puff INH Q4H PRN 07/14/16 [History] Diazepam [Valium] 5 mg PO Q8H PRN 07/14/16 [History] Dutasteride [Avodart] 0.5 mg PO DAILY 07/14/16 [History] Gabapentin [Neurontin] 600 mg PO BID 07/14/16 [History] Simvastatin [Zocor] 40 mg PO DAILY 07/14/16 [History] Solifenacin [Vesicare] 5 mg PO BEDTIME 09/15/16 [History] oxyCODONE 15 mg PO Q4H PRN 07/14/16 [History] Cyclobenzaprine [Flexeril] 10 mg PO TID PRN 10/06/17 [History] FLUoxetine [PROzac] 20 mg PO DAILY 10/06/17 [History] Sennosides/Docusate Sodium [Senna-Docusate Sodium] 2 tab PO BID PRN 01/31/18 [ History] Carbidopa/Levodopa [Carbidopa-Levodopa 25-100 Tab] 0.5 tab PO DAILY 02/01/18 [ History] Amoxicillin/Potassium Clav [Augmentin 875-125 Tablet] 1 each PO BID #12 tablet 02/04/18 [Rx] Lactobacillus Acidophilus [Acidophilus Lactobacillus] 1 each PO BID #60 capsule 02/04/18 [Rx] Past Medical History HEENT History: Reports: Allergic Rhinitis, Hard of Hearing, Other (See Below) Other HEENT History: difficulty swallowing, tinnitis Cardiovascular History: Reports: Arrhythmia, Bypass, CAD, High Cholesterol, Hypertension Respiratory History: Reports: Asthma Gastrointestinal History: Reports: Colon Polyp, Hemorrhoids, Other (See Below) Other Gastrointestinal History: hernia Genitourinary History: Reports: Prostate Disorder, Renal Disease Musculoskeletal History: Reports: Other (See Below) Other Musculoskeletal History: "muscle cramps and spasms" Neurological History: Reports: CVA, Headaches, Chronic, Parkinson's Psychiatric History: Reports: Anxiety, Depression Endocrine/Metabolic History: Reports: None - Infectious Disease History Infectious Disease History: Reports: Chicken Pox, Measles, Mumps - Past Surgical History HEENT Surgical History: Reports: Cataract Surgery, Tonsillectomy Cardiovascular Surgical History: Reports: Coronary Artery Bypass GI Surgical History: Reports: Appendectomy, Cholecystectomy, Colonoscopy, Hernia , Inguinal Musculoskeletal Surgical History: Reports: Knee Replacement Dermatological Surgical History: Reports: None Social & Family History - Family History Family Medical History: Noncontributory - Tobacco Use Smoking Status *Q: Never Smoker Years of Tobacco use: 15 Packs/Tins Daily: 0.5 Used Tobacco, but Quit: No Month/Year Tobacco Last Used: 05/28/14 Second Hand Smoke Exposure: No - Caffeine Use Caffeine Use: Reports: Coffee Caffeine Use Comment: 6-8 cups/day - Alcohol Use Days Per Week of Alcohol Use: 0 - Recreational Drug Use Recreational Drug Use: No ED ROS GENERAL - Review of Systems Review Of Systems: See Below Constitutional: Reports: No Symptoms HEENT: Reports: No Symptoms Respiratory: Reports: No Symptoms Cardiovascular: Reports: No Symptoms GI/Abdominal: Reports: No Symptoms : Reports: Hematuria Musculoskeletal: Reports: No Symptoms Skin: Reports: No Symptoms Neurological: Reports: No Symptoms ED EXAM, RENAL/ - Physical Exam Exam: See Below Exam Limited By: No Limitations General Appearance: Alert, WD/WN, No Apparent Distress Respiratory/Chest: No Respiratory Distress (Male) Exam: Other (Blood-tinged urine leg bag catheter) Course - Vital Signs Last Recorded V/S: Last Vital Signs Temp 98.3 F 02/16/18 13:32 Pulse 66 02/16/18 13:32 Resp 18 02/16/18 13:32 BP 167/97 H 02/16/18 13:32 Pulse Ox 94 L 02/16/18 13:32 Departure - Departure Time of Disposition: 14:11 Disposition: Home, Self-Care 01 Condition: Fair Clinical Impression: Hematuria Qualifiers: Hematuria type: unspecified type Qualified Code(s): R31.9 - Hematuria, unspecified - Discharge Information Referrals: Dallas Dorantes MD [Primary Care Provider] - Additional Instructions: Keep your follow-up appointment with your primary care provider and urology, call return with worsening of symptoms or alyce blood in your catheter - Assessment/Plan Plan: Assessment Acuity = acute Site and laterality = BPH with urinary retention producing hematuria with a leg bag catheter in place Etiology = probably secondary to catheter placement, long-term inflammation and possible trauma Manifestations = none Location of injury = Home Lab values = none Plan I did review with him how catheter functions as well as the anatomy, he does have follow-up appointment with his primary care provider March 03 and then a follow-up appointment for second opinion with urology on March 07 This note was dictated using [employer] voice recognition software please call with any questions on syntax or devante.
== END 2018-02-16 14:24 | disposition home or self-care (01) ==
LOC: JP.ED 13:17
DX: R31.9 Hematuria, unspecified (principal); E78.00 Pure hypercholesterolemia, unspecified; I10 Essential (primary) hypertension; J45.909 Unspecified asthma, uncomplicated; Z88.5 Allergy status to narcotic agent; Z79.899 Other long term (current) drug therapy
CPT/HCPCS: 99283

== ENCOUNTER 2018-03-23 07:06 | Day surgery (SDC) | payer MEDICARE, BC ==
[2018-03-23] MEDS ORDERED: Lactated Ringers 1,000 ML IV SCH (07:30)
[2018-03-23] MEDS ORDERED: fentaNYL 100 MCG/2 ML SDV ONE (08:30)
[2018-03-23] MEDS ORDERED: Labetalol 20 MG/4 ML Syringe IVPUSH ONE (08:30)
[2018-03-23] MEDS ORDERED: Propofol 200 MG/20 ML SDV ONE ×2 (08:30→09:04)
[2018-03-23 10:38] VITALS: BP 192/89
--- NOTE | 2018-03-23 11:31 | OR ---
DATE OF PROCEDURE: 03/23/2018 PREOPERATIVE DIAGNOSES: 1. Blood in the stool. 2. Epigastric pain. 3. History of diverticulitis. POSTOPERATIVE DIAGNOSES: 1. Blood in the stool. 2. Epigastric pain. 3. History of diverticulitis. 4. Mild antral gastritis. 5. Hiatal hernia. 6. Colonic diverticulosis. 7. Few right colon polyps. PROCEDURES: 1. Esophagogastroduodenoscopy with antral biopsies for CLOtest and tissue sent for pathology to look for Helicobacter pylori. 2. Colonoscopy to the cecum with biopsy resection of three small right colon polyps, sent to the laboratory as one specimen. SURGEON: Salo Soto MD. ANESTHESIA: IV anesthesia with monitored anesthesia care. INDICATION: This 77-year-old white male is referred for upper and lower endoscopies. Apparently, he passed a lot of blood in his stool. He also complained of some epigastric pain and has a history of resolved diverticulitis. He says his last upper and lower endoscopies were performed more than 10 years ago. I counseled him for upper and lower endoscopies with possible biopsy and/or polypectomy including risks and alternatives, and he gave his informed consent to proceed. DESCRIPTION OF PROCEDURE: The patient was placed in the left lateral decubitus position. IV anesthesia was administered by the Anesthesia Service. Time-out was held. The flexible video Olympus upper endoscope was passed through his mouth, down his esophagus, and into his stomach. The scope was easily passed through the pylorus into the duodenum reaching its third portion. The scope was then slowly withdrawn, examining the mucosa throughout. The duodenal mucosa appeared unremarkable. The scope was brought up back through the pylorus and into the antrum. There was some red streaking emanating from the pylorus consistent with mild gastritis. We obtained antral biopsies for CLOtest and sent tissue for pathology to look for Helicobacter pylori. The scope was retroflexed. The proximal stomach appeared unremarkable, except for a hiatal hernia. The scope was straightened and brought up through the hiatal hernia. The GE junction appeared unremarkable. The scope was then brought up through the unremarkable-appearing esophagus and was removed. Next, a rectal exam was performed, which was unremarkable. The flexible video Olympus colonoscope was introduced through his anus, up his rectum, and out his colon all way to the cecum. En route, we saw several left-sided diverticula. There was no bleeding or inflammation associated with any of them at the present time. Also, en route to the cecum, in the right colon, we saw three small polyps. These were removed with the biopsy forceps. Once the cecum was reached, the scope was slowly withdrawn, examining the mucosa throughout. No additional mucosal abnormalities were noted. The scope was retroflexed in the rectum with the distal rectum appearing unremarkable. The scope was straightened and removed. He tolerated the procedure well. Salo Soto MD /[id number] MTDD
== END 2018-03-23 10:43 | disposition home or self-care (01) ==
LOC: JP.SDS 07:06
PROVIDERS: ATTEND Surgery
DX: K92.1 Melena (principal); R10.13 Epigastric pain; D12.2 Benign neoplasm of ascending colon; K29.51 Unspecified chronic gastritis with bleeding; K57.30 Diverticulosis of large intestine without perforation or abscess without bleeding; K44.9 Diaphragmatic hernia without obstruction or gangrene; I10 Essential (primary) hypertension; E78.5 Hyperlipidemia, unspecified; Z87.19 Personal history of other diseases of the digestive system; Z88.1 Allergy status to other antibiotic agents; Z88.5 Allergy status to narcotic agent
CPT/HCPCS: 43239; 45380; 87081; J2704; J3010; J7120; 88305

== ENCOUNTER 2018-05-06 16:52 | Emergency (ER) | payer MEDICARE, BC ==
[2018-05-06 17:21] VITALS: BP 125/65
--- NOTE | 2018-05-06 17:30 | EDM.PDOC ---
ED HPI GENERAL MEDICAL PROBLEM - General Chief Complaint: Lower Extremity Injury/Pain Stated Complaint: SPRAINED RIGHT FOOT Time Seen by Provider: 05/06/18 17:09 Source of Information: Reports: Patient, Family History Limitations: Reports: No Limitations - History of Present Illness INITIAL COMMENTS - FREE TEXT/NARRATIVE: states yesterday he was trying to pour coffee into his thermos and her states his tremors got bad (has parkinson's) and he fell down; pain to his right ankle. There is also increased swelling, fluids blisters present with ecchymosis ; limited rom Onset Date: 05/05/18 Location: Reports: Lower Extremity, Right Quality: Reports: Throbbing Severity: Moderate Improves with: Reports: None Worsens with: Reports: None Right Lower Leg Pain Score (Numeric/FACES): 2 - Related Data Allergies Allergy/AdvReac Type Severity Reaction Status Date / Time morphine Allergy Severe Shortness Verified 03/23/18 07:31 of Breath amoxicillin [From Augmentin] Allergy Cannot Verified 03/23/18 07:31 Remember clavulanic acid Allergy Cannot Verified 03/21/18 10:07 [From Augmentin] Remember Home Meds: Home Meds Doxazosin Mesylate 4 mg PO DAILY 09/14/13 [History] FLUoxetine HCl [Fluoxetine HCl] 40 mg PO DAILY 09/14/13 [History] Furosemide 20 mg PO DAILY 09/14/13 [History] Lisinopril 2.5 mg PO DAILY 09/14/13 [History] Omeprazole 20 mg PO BID 09/14/13 [History] Tamsulosin HCl 0.4 mg PO DAILY 09/14/13 [History] amLODIPine [Norvasc] 5 mg PO BID 09/14/13 [History] Albuterol Sulfate [Ventolin Hfa] 2 puff INH Q4H PRN 07/14/16 [History] Diazepam [Valium] 5 mg PO Q8H PRN 07/14/16 [History] Dutasteride [Avodart] 0.5 mg PO DAILY 07/14/16 [History] Gabapentin [Neurontin] 600 mg PO BID 07/14/16 [History] Simvastatin [Zocor] 40 mg PO DAILY 07/14/16 [History] Solifenacin [Vesicare] 5 mg PO BEDTIME 07/14/16 [History] oxyCODONE 15 mg PO Q4H PRN 07/14/16 [History] Cyclobenzaprine [Flexeril] 10 mg PO TID PRN 10/06/17 [History] FLUoxetine [PROzac] 20 mg PO DAILY 10/06/17 [History] Sennosides/Docusate Sodium [Senna-Docusate Sodium] 2 tab PO BID PRN 01/31/18 [ History] Carbidopa/Levodopa [Carbidopa-Levodopa 25-100 Tab] 0.5 tab PO DAILY 02/01/18 [ History] Lactobacillus Acidophilus [Acidophilus Lactobacillus] 1 each PO BID #60 capsule 02/04/18 [Rx] Past Medical History HEENT History: Reports: Allergic Rhinitis, Hard of Hearing, Other (See Below) Other HEENT History: difficulty swallowing, tinnitis Cardiovascular History: Reports: Arrhythmia, Bypass, CAD, High Cholesterol, Hypertension Respiratory History: Reports: Asthma Gastrointestinal History: Reports: Colon Polyp, Gastritis, GI Bleed, Hemorrhoids , Other (See Below) Other Gastrointestinal History: hernia Genitourinary History: Reports: Prostate Disorder, Renal Disease Musculoskeletal History: Reports: Other (See Below) Other Musculoskeletal History: "muscle cramps and spasms" Neurological History: Reports: CVA, Headaches, Chronic, Parkinson's Psychiatric History: Reports: Anxiety, Depression Endocrine/Metabolic History: Reports: None - Infectious Disease History Infectious Disease History: Reports: Chicken Pox, Measles, Mumps - Past Surgical History HEENT Surgical History: Reports: Cataract Surgery, Tonsillectomy Cardiovascular Surgical History: Reports: Coronary Artery Bypass Respiratory Surgical History: Reports: None GI Surgical History: Reports: Appendectomy, Cholecystectomy, Colonoscopy, EGD, Hernia, Inguinal Male Surgical History: Reports: None Neurological Surgical History: Reports: None Musculoskeletal Surgical History: Reports: Knee Replacement Dermatological Surgical History: Reports: None Social & Family History - Family History Family Medical History: Noncontributory - Tobacco Use Smoking Status *Q: Heavy Tobacco Smoker Years of Tobacco use: 60 Packs/Tins Daily: 0.5 - Caffeine Use Caffeine Use: Reports: Coffee Caffeine Use Comment: 6-8 cups/day - Recreational Drug Use Recreational Drug Use: No Review of Systems - Review of Systems Review Of Systems: See Below Constitutional: Reports: No Symptoms Respiratory: Reports: Shortness of Breath (chronic) Cardiovascular: Reports: No Symptoms GI/Abdominal: Reports: No Symptoms Genitourinary: Reports: No Symptoms Musculoskeletal: Reports: Joint Pain (right ankle pain) Skin: Reports: Bruising, Other (fluid blisters and edema, right ankle and lower Extremity) Neurological: Reports: No Symptoms Psychiatric: Reports: No Symptoms ED EXAM, GENERAL - Physical Exam Exam: See Below Exam Limited By: No Limitations General Appearance: Alert, WD/WN, No Apparent Distress Head: Atraumatic, Normocephalic Neck: Full Range of Motion Respiratory/Chest: No Respiratory Distress, Lungs Clear, Normal Breath Sounds Peripheral Pulses: 1+: Posterior Tibial (R), Dorsalis Pedis (R), 2+: Posterior Tibial (L), Dorsalis Pedis (L) GI/Abdominal: Normal Bowel Sounds, Soft Extremities: Joint Swelling, Limited Range of Motion, Other (ecchymosis) Neurological: Alert, Oriented, CN II-XII Intact, Normal Gait Psychiatric: Normal Affect, Normal Mood Skin Exam: Warm, Dry Course - Vital Signs Last Recorded V/S: Last Vital Signs Temp 98.9 F 05/06/18 17:24 Pulse 68 05/06/18 17:24 Resp 18 05/06/18 17:24 BP 125/65 05/06/18 17:24 Pulse Ox 93 L 05/06/18 17:24 - Orders/Labs/Meds Orders: Active Orders 24 hr Category Date Time Status Ankle Min 3V Rt [CR] Stat Exams 05/06/18 17:26 Taken - Re-Assessments/Exams Free Text/Narrative Re-Assessment/Exam: 05/06/18 18:57 Placed in posterior orthoglass splint; right LE+cms post Departure - Departure Time of Disposition: 18:15 Disposition: Home, Self-Care 01 Condition: Good Clinical Impression: Fibula fracture, Fracture of fibula - Discharge Information Instructions: Tibial and Fibular Fractures Referrals: Dallas Dorantes MD [Primary Care Provider] - Forms: ED Department Discharge Additional Instructions: Please contact your ortho doctor in the morning for further direction Do not bear weight on your right leg Elevate your leg as much as possible Call with concerns Do NOT drink or drive while taking pain medications. - Problem List & Annotations (1) Fibula fracture SNOMED Code(s): 07399777 Code(s): S82.409A - UNSP FRACTURE OF SHAFT OF UNSP FIBULA, INIT FOR CLOS FX Status: Acute Priority: Medium Qualifiers: Encounter type: initial encounter Fracture type: closed Fracture morphology: segmental Fracture alignment: displaced Laterality: right - My Orders Last 24 Hours: My Active Orders 05/06/18 17:26 Ankle Min 3V Rt [CR] Stat - Assessment/Plan Last 24 Hours: My Active Orders 05/06/18 17:26 Ankle Min 3V Rt [CR] Stat
--- NOTE | 2018-05-07 09:15 | CR ---
Ankle Min 3V Rt CLINICAL HISTORY: Pain, fall FINDINGS: The soft tissues are swollen. There is a slightly displaced fracture of the distal fibula. There is mild asymmetry in the ankle mortise with some lateral widening. There is mild irregularity i n the posterior tibial articular margin. Impression: Slightly displaced fracture of the distal fibula Ankle mortise is asymmetric Minimal deformity the posterior periarticular margin of the tibia without definite fracture line. Cli nically relevant additional views are recommended
== END 2018-05-06 18:31 | disposition home or self-care (01) ==
LOC: JP.ED 16:52
DX: S82.831A Other fracture of upper and lower end of right fibula, initial encounter for closed fracture (principal); G20 Parkinson's disease; Z88.5 Allergy status to narcotic agent; Z88.1 Allergy status to other antibiotic agents; Z79.899 Other long term (current) drug therapy; I10 Essential (primary) hypertension; F41.9 Anxiety disorder, unspecified; F32.9 Major depressive disorder, single episode, unspecified; F17.210 Nicotine dependence, cigarettes, uncomplicated; W06.XXXA Fall from bed, initial encounter
CPT/HCPCS: 29515; 73610-26-RT; 73610-RT; 99284-25

== ENCOUNTER 2018-05-07 14:01 | Inpatient (IN) | payer MEDICARE, BC ==
[2018-05-07] MEDS ORDERED: Naloxone 0.4 MG/ML SDV IVPUSH PRN ×2 (14:08→16:31)
--- NOTE | 2018-05-07 14:14 | EDM.PDOC ---
ED HPI GENERAL MEDICAL PROBLEM - General Chief Complaint: Respiratory Problem Stated Complaint: FROM CLINIC Time Seen by Provider: 05/07/18 14:10 Source of Information: Reports: Family History Limitations: Reports: Altered Mental Status, Physical Impairment - History of Present Illness INITIAL COMMENTS - FREE TEXT/NARRATIVE: 77-year-old male with a recent right ankle fracture saw orthopedics this morning , was sent over to the clinic for preoperative history and physical. Prior to going to the clinic he had lunch, and took on oxycodone and while waiting for his appointment became very somnolent and sedated and basically unresponsive. He was urgently sent to the emergency room. Patient arrived to the emergency room dusky, hypoxic and unresponsive. He did respond however to physical stimulus such as sternal rubbing, and had a fairly intense response to movement of his right lower extremity which was recently injured. He would open his eyes and yell out loud and asked "where you doing" and then fall asleep again. He was given 0.2 mg of IV Narcan and sent back for head CT. When he arrived back from the head CT which did not show any acute hemorrhage or shift or mass effect , he had returned to his baseline. The oxycodone that he had taken for pain was no more than his normal baseline medication. Onset: Sudden Duration: Hour(s): (Within the last hour) Associated Symptoms: Reports: Confusion, Weakness. Denies: Nausea/Vomiting - Related Data Allergies Allergy/AdvReac Type Severity Reaction Status Date / Time morphine Allergy Severe Shortness Verified 05/07/18 14:10 of Breath amoxicillin [From Augmentin] Allergy Cannot Verified 05/07/18 14:10 Remember clavulanic acid Allergy Cannot Verified 05/07/18 14:10 [From Augmentin] Remember Home Meds: Home Meds Doxazosin Mesylate 4 mg PO DAILY 09/14/13 [History] FLUoxetine HCl [Fluoxetine HCl] 40 mg PO DAILY 09/14/13 [History] Furosemide 20 mg PO DAILY 09/14/13 [History] Lisinopril 2.5 mg PO DAILY 09/14/13 [History] Omeprazole 20 mg PO BID 09/14/13 [History] Tamsulosin HCl 0.4 mg PO DAILY 09/14/13 [History] amLODIPine [Norvasc] 5 mg PO BID 09/14/13 [History] Albuterol Sulfate [Ventolin Hfa] 2 puff INH Q4H PRN 07/14/16 [History] Diazepam [Valium] 5 mg PO Q8H PRN 07/14/16 [History] Dutasteride [Avodart] 0.5 mg PO DAILY 07/14/16 [History] Gabapentin [Neurontin] 600 mg PO BID 07/14/16 [History] Simvastatin [Zocor] 40 mg PO DAILY 07/14/16 [History] Solifenacin [Vesicare] 5 mg PO BEDTIME 07/14/16 [History] oxyCODONE 15 mg PO Q4H PRN 07/14/16 [History] Cyclobenzaprine [Flexeril] 10 mg PO TID PRN 10/06/17 [History] FLUoxetine [PROzac] 20 mg PO DAILY 10/06/17 [History] Sennosides/Docusate Sodium [Senna-Docusate Sodium] 2 tab PO BID PRN 01/31/18 [ History] Carbidopa/Levodopa [Carbidopa-Levodopa 25-100 Tab] 0.5 tab PO DAILY 02/01/18 [ History] Lactobacillus Acidophilus [Acidophilus Lactobacillus] 1 each PO BID #60 capsule 02/04/18 [Rx] Past Medical History HEENT History: Reports: Allergic Rhinitis, Hard of Hearing, Other (See Below) Other HEENT History: difficulty swallowing, tinnitis Cardiovascular History: Reports: Arrhythmia, Bypass, CAD, High Cholesterol, Hypertension Respiratory History: Reports: Asthma Gastrointestinal History: Reports: Colon Polyp, Gastritis, GI Bleed, Hemorrhoids , Other (See Below) Other Gastrointestinal History: hernia Genitourinary History: Reports: Prostate Disorder, Renal Disease Musculoskeletal History: Reports: Other (See Below) Other Musculoskeletal History: "muscle cramps and spasms". right fib FX Neurological History: Reports: CVA, Headaches, Chronic, Parkinson's Psychiatric History: Reports: Anxiety, Depression Endocrine/Metabolic History: Reports: None - Infectious Disease History Infectious Disease History: Reports: Chicken Pox, Measles, Mumps - Past Surgical History HEENT Surgical History: Reports: Cataract Surgery, Tonsillectomy Cardiovascular Surgical History: Reports: Coronary Artery Bypass Respiratory Surgical History: Reports: None GI Surgical History: Reports: Appendectomy, Cholecystectomy, Colonoscopy, EGD, Hernia, Inguinal Male Surgical History: Reports: None Neurological Surgical History: Reports: None Musculoskeletal Surgical History: Reports: Knee Replacement Dermatological Surgical History: Reports: None Social & Family History - Family History Family Medical History: Noncontributory - Caffeine Use Caffeine Use: Reports: Coffee Caffeine Use Comment: 6-8 cups/day ED ROS GENERAL - Review of Systems Review Of Systems: Unable To Obtain (Review of systems is unable to be obtained because of unresponsive patient, and inconsistent answers when he regained consciousness) ED EXAM, GENERAL - Physical Exam Exam: See Below Exam Limited By: Physical Impairment General Appearance: Lethargic Eye Exam: Bilateral Eye: PERRL Respiratory/Chest: No Respiratory Distress, Lungs Clear Cardiovascular: Regular Rate, Rhythm GI/Abdominal: Non-Tender Extremities: Other (Patient has a splinted right lower leg which is obviously extremely sore as he reacted in pain with movement of the right leg) Neurological: Inattentive, Slow to Respond Skin Exam: Warm, Dry Course - Vital Signs Last Recorded V/S: Last Vital Signs Temp 97.1 F 05/08/18 06:00 Pulse 71 05/08/18 06:00 Resp 20 05/08/18 06:00 BP 125/102 H 05/08/18 06:00 Pulse Ox 96 05/08/18 06:00 - Orders/Labs/Meds Orders: Active Orders 24 hr Category Date Time Status BIPAP Adult [RT BiPAP/CPAP] [RC] ASDIRECTED Care 05/07/18 15:46 Inactive EKG Documentation Completion [RC] ASDIRECTED Care 05/07/18 15:03 Active Insert Goode Catheter [Insert Urinary Catheter] [OM.PC] Care 05/07/18 16:00 Ordered Q24H Urinary Catheter Assessment [RC] ASDIRECTED Care 05/07/18 15:48 Active Chest 2V [CR] Urgent Exams 05/07/18 15:07 Taken DRUG SCREEN, URINE [URCHEM] Stat Lab 05/07/18 16:14 Ordered EKG 12 Lead [EK] Stat Ther 05/07/18 15:02 Ordered Medication Orders Acetaminophen (Tylenol) 650 mg PO Q4H PRN PRN Reason: Pain (Mild 1-3)/fever Acetaminophen (Tylenol) 650 mg RECTAL Q4H PRN PRN Reason: Fever Albuterol (Proventil Neb Soln) 2.5 mg NEB Q4H PRN PRN Reason: Shortness Of Breath/wheezing Albuterol/Ipratropium (Duoneb 3.0-0.5 Mg/3 Ml) 3 ml NEB QIDRT [facility] Last Admin: 05/07/18 20:05 Dose: Admin: 05/07/18 17:51 Dose: Not Given Amlodipine Besylate (Norvasc) 5 mg PO BID [facility] Last Admin: 05/07/18 20:05 Dose: Carbidopa/Levodopa (Sinemet 25-100 Mg) 0.5 tab PO DAILY [facility] Dutasteride (Avodart) 0.5 mg PO DAILY [facility] Enoxaparin Sodium (Lovenox) 30 mg SUBCUT Q24H [facility] Last Admin: 05/07/18 20:04 Dose: Fluoxetine HCl (Prozac) 40 mg PO DAILY [facility] Gabapentin (Neurontin) 600 mg PO BID [facility] Last Admin: 05/07/18 20:05 Dose: Lactated Ringer's (Ringers, Lactated) 1,000 mls @ 125 mls/hr IV ASDIRECTED [facility] Lactobacillus Rhamnosus (Culturelle) 1 cap PO BID [facility] Last Admin: 05/07/18 20:05 Dose: Lisinopril (Prinivil) 2.5 mg PO DAILY [facility] Magnesium Hydroxide (Milk Of Magnesia) 30 ml PO Q12H PRN PRN Reason: Constipation Naloxone HCl (Narcan) 0.1 mg IVPUSH Q1H PRN PRN Reason: Oversedation Ondansetron HCl (Zofran) 4 mg IV Q4H PRN PRN Reason: Nausea/Vomiting Oxycodone HCl (Oxycodone) 5 - 10 mg PO Q4H PRN PRN Reason: Pain (moderate 4-6) [facility]op[facility]) [facility] Last Admin: 05/07/18 17:51 Dose: Not Given Polyethylene Glycol (Miralax) 17 gm PO DAILY PRN PRN Reason: Constipation Senna/Docusate Sodium (Senna Plus) 1 tab PO BID PRN PRN Reason: Constipation Simvastatin (Zocor) 40 mg PO DAILY [facility] Sodium Chloride (Saline Flush) 10 ml FLUSH ASDIRECTED PRN PRN Reason: Keep Vein Open Tamsulosin HCl (Flomax) 0.4 mg PO DAILY [facility] Trospium (Sanctura) 20 mg PO BEDTIME [facility] Last Admin: 05/07/18 20:05 Dose: Labs: Laboratory Tests 05/07/18 05/07/18 05/07/18 Range/Units 14:07 14:07 14:07 WBC 9.9 (4.5-11.0) K/uL RBC 3.92 L (4.30-5.90) M/uL Hgb 11.6 L (12.0-15.0) g/dL Hct 34.2 L (40.0-54.0) % MCV 87 (80-98) fL MCH 30 (27-31) pg MCHC 34 (32-36) % Plt Count 262 (150-400) K/uL Neut % (Auto) 58 (36-66) % Lymph % (Auto) 27 (24-44) % [place] % (Auto) 10 H (2-6) % Eos % (Auto) 5 H (2-4) % Baso % (Auto) 0 (0-1) % Puncture Site ABG pH (7.350-7.450) ABG pCO2 (35.0-42.0) mmHg ABG pO2 (75.0-100.0) mmHg ABG HCO3 (22.0-26.0) mmol/L ABG Total CO2 (23.0-27.0) mmol/L ABG O2 Saturation (95.0-98.0) % ABG O2 Content (15.0-23.0) %vol ABG Base Excess mm/L ABG Hemoglobin (13.5-18.0) g/dL ABG Oxyhemoglobin % ABG Carboxyhemoglobin (0.0-1.6) % ABG Methemoglobin % Maulik Test O2 Delivery Device Sodium 131 L (140-148) mmol/L Potassium 4.2 (3.6-5.2) mmol/L Chloride 97 L (100-108) mmol/L Carbon Dioxide 26 (21-32) mmol/L Anion Gap 12.2 (5.0-14.0) mmol/L BUN 52 H D (7-18) mg/dL Creatinine 3.0 H D (0.8-1.3) mg/dL Est Cr Clr Drug Dosing 19.97 mL/min Estimated GFR (MDRD) 20 L (>60) Glucose 120 H (74-106) mg/dL Calcium 8.5 (8.5-10.1) mg/dL Total Bilirubin 0.5 (0.2-1.0) mg/dL AST 16 (15-37) U/L ALT 9 L (12-78) U/L Alkaline Phosphatase 70 (46-116) U/L Troponin I < 0.017 (0.000-0.056) ng/mL Total Protein 6.3 L (6.4-8.2) g/dL Albumin 3.2 L (3.4-5.0) g/dL Globulin 3.1 (2.3-3.5) g/dL Albumin/Globulin Ratio 1.0 L (1.2-2.2) 05/07/18 Range/Units 15:03 WBC (4.5-11.0) K/uL RBC (4.30-5.90) M/uL Hgb (12.0-15.0) g/dL Hct (40.0-54.0) % MCV (80-98) fL MCH (27-31) pg MCHC (32-36) % Plt Count (150-400) K/uL Neut % (Auto) (36-66) % Lymph % (Auto) (24-44) % [place] % (Auto) (2-6) % Eos % (Auto) (2-4) % Baso % (Auto) (0-1) % Puncture Site Rt radial ABG pH 7.319 L (7.350-7.450) ABG pCO2 48.0 H (35.0-42.0) mmHg ABG pO2 58.7 L (75.0-100.0) mmHg ABG HCO3 23.9 (22.0-26.0) mmol/L ABG Total CO2 22.4 L (23.0-27.0) mmol/L ABG O2 Saturation 87.6 L (95.0-98.0) % ABG O2 Content 13.3 L (15.0-23.0) %vol ABG Base Excess -1.8 mm/L ABG Hemoglobin 11.1 L (13.5-18.0) g/dL ABG Oxyhemoglobin 85.0 % ABG Carboxyhemoglobin 2.4 H (0.0-1.6) % ABG Methemoglobin 0.6 % Maluik Test Passed O2 Delivery Device Nasal cannula Sodium (140-148) mmol/L Potassium (3.6-5.2) mmol/L Chloride (100-108) mmol/L Carbon Dioxide (21-32) mmol/L Anion Gap (5.0-14.0) mmol/L BUN (7-18) mg/dL Creatinine (0.8-1.3) mg/dL Est Cr Clr Drug Dosing mL/min Estimated GFR (MDRD) (>60) Glucose (74-106) mg/dL Calcium (8.5-10.1) mg/dL Total Bilirubin (0.2-1.0) mg/dL AST (15-37) U/L ALT (12-78) U/L Alkaline Phosphatase (46-116) U/L Troponin I (0.000-0.056) ng/mL Total Protein (6.4-8.2) g/dL Albumin (3.4-5.0) g/dL Globulin (2.3-3.5) g/dL Albumin/Globulin Ratio (1.2-2.2) Meds: Medications Generic Name Dose Route Start Last Admin Trade Name Freq PRN Reason Stop Dose Admin Acetaminophen 650 mg 05/07/18 16:31 Tylenol PO Q4H PRN Pain (Mild 1-3)/fever Acetaminophen 650 mg 05/07/18 19:43 Tylenol RECTAL Q4H PRN Fever Albuterol 2.5 mg 05/07/18 16:31 Proventil Neb Soln NEB Q4H PRN Shortness Of Breath/wheezing Albuterol/Ipratropium 3 ml 05/07/18 16:48 05/07/18 20:05 Duoneb 3.0-0.5 Mg/3 Ml NEB Not Given QIDRT [facility] Amlodipine Besylate 5 mg 05/07/18 21:00 05/07/18 20:05 Norvasc PO Not Given BID [facility] Carbidopa/Levodopa 0.5 tab 05/08/18 09:00 Sinemet 25-100 Mg PO DAILY [facility] Dutasteride 0.5 mg 05/08/18 09:00 Avodart PO DAILY [facility] Enoxaparin Sodium 30 mg 05/07/18 19:00 05/07/18 20:04 Lovenox SUBCUT Not Given Q24H [facility] Fluoxetine HCl 40 mg 05/08/18 09:00 Prozac PO DAILY [facility] Gabapentin 600 mg 05/07/18 21:00 05/07/18 20:05 Neurontin PO Not Given BID [facility] Lactated Ringer's 1,000 mls @ 125 mls/hr 05/07/18 22:15 Ringers, Lactated IV ASDIRECTED [facility] Lactobacillus Rhamnosus 1 cap 05/07/18 21:00 05/07/18 20:05 Culturelle PO Not Given BID [facility] Lisinopril 2.5 mg 05/08/18 09:00 Prinivil PO DAILY [facility] Magnesium Hydroxide 30 ml 05/07/18 16:31 Milk Of Magnesia PO Q12H PRN Constipation Naloxone HCl 0.1 mg 05/07/18 16:31 Narcan IVPUSH Q1H PRN O[facility] Ondansetron HCl 4 mg 05/07/18 16:31 Zofran IV Q4H PRN Nausea/Vomiting Oxycodone HCl 5 - 10 mg 05/07/18 20:27 Oxycodone PO Q4H PRN Pain (moderate 4-6) Pantoprazole Sodium 40 mg 05/07/18 18:00 05/07/18 17:51 Protonix PO Not Given BIDAC [facility] Polyethylene Glycol 17 gm 05/07/18 16:31 Miralax PO DAILY PRN Constipation Senna/Docusate Sodium 1 tab 05/07/18 16:31 Senna Plus PO BID PRN Constipation Simvastatin 40 mg 05/08/18 09:00 Zocor PO DAILY [facility] Sodium Chloride 10 ml 05/07/18 16:31 Saline Flush FLUSH ASDIRECTED PRN Keep Vein Open Tamsulosin HCl 0.4 mg 05/08/18 09:00 Flomax PO DAILY [facility] Trospium 20 mg 05/07/18 21:00 05/07/18 20:05 Sanctura PO Not Given BEDTIME [facility] Discontinued Medications Generic Name Dose Route Start Last Admin Trade Name Freq PRN Reason Stop Dose Admin Lactated Ringer's 1,000 mls @ 250 mls/hr 05/07/18 16:31 Ringers, Lactated IV 05/07/18 22:32 ASDIRECTED [facility] Naloxone HCl 0.2 mg 05/07/18 14:08 05/07/18 14:13 Narcan IVPUSH 0.2 mg ONETIME PRN Administration Oversedation Naloxone HCl 0.2 mg 05/07/18 15:44 05/07/18 15:47 Narcan IVPUSH 05/07/18 15:45 0.2 mg ONETIME ONE Administration - Re-Assessments/Exams Free Text/Narrative Re-Assessment/Exam: 05/07/18 15:05 Patient had a partial response to the 0.2 mg of IV Narcan. CBC and CMP were then drawn and was taken back for CT of the head. CT was negative for acute findings, and the patient was back to his normal baseline when he returned from CT. Unfortunately his labs were concerning with a creatinine of 3.0 and a GFR of only 20. I think this patient needs to be observed with IV fluids and on telemetry for the next 24-48 hours before his ankle surgery can be done safely. I discussed this with both Dr. Snow of orthopedics and Dr. Pritchett of the hospitalist service, they were in agreement with the plan. Departure - Departure Time of Disposition: 16:30 Disposition: Admitted As Inpatient 64 Condition: Fair Clinical Impression: Unresponsive episode, Parkinsons disease Renal failure Qualifiers: Renal failure chronicity: acute on chronic - Discharge Information
--- NOTE | 2018-05-07 14:52 | CT ---
Head wo Cont CLINICAL HISTORY: Decreased responsiveness COMPARISON: MR brain 2013 TECHNIQUE: Transverse scans were obtained from the base of the skull through the vertex without IV co ntrast on a multislice, multidetector CT scanner. Auto dosage reduction and iterative reconstruction techniques employed. FINDINGS: No focal abnormal parenchymal density is identified. There is no mass effect, hemorrhage, o r extraaxial collection. The basal cisterns and sulci over the convexities are prominent. The ventric les are mildly asymmetric being larger on the left this is unchanged from prior study and may represe nt some left hemispheric encephalomalacia. There are scattered periventricular lucencies. IMPRESSION: No mass, hemorrhage or extra-axial collection Moderate atrophy Chronic ischemic microvascular changes
[2018-05-07] MEDS ORDERED: Naloxone 0.4 MG/ML SDV IVPUSH ONE (15:44)
--- NOTE | 2018-05-07 16:22 | PCM.HP ---
H&P History of Present Illness - General Date of Service: 05/07/18 Admit Problem/Dx: Admission Diagnosis/Problem Admission Diagnosis/Problem Hypoxia Source of Information: Patient, Family, Provider, RN Notes Reviewed History Limitations: Reports: Altered Mental Status (Confused and lethargic) - History of Present Illness Initial Comments - Free Text/Narative: Mr. Botello is a 77-year-old gentleman who was admitted through the emergency department with acute on chronic hypoxic and hypercapnic respiratory failure secondary to oversedation related to narcotic use. He recently injured his right lower leg and has been found to have a fibular fracture. He has known underlying COPD as well as chronic kidney disease stage III and Parkinson's disease. He uses oxycodone regularly for management of musculoskeletal pain related to his are concerns disease and is also been using the medication regularly over the past few days because of his new fracture. Family denies that he is been taking more than the prescribed dose of oxycodone. He's been found to have on evaluation in emergency department acute kidney injury with a creatinine of 3.0. This is elevated significantly from his baseline, likely prerenal in nature related to poor oral intake over the past few days. He was sleeping in his wheelchair waiting for an appointment at the clinic this afternoon when he was noted to be cyanotic with very poor and shallow respirations. He was brought immediately to the emergency department and was given Narcan because of his history of narcotic use. He improved significantly after use of Narcan but then became very weak and lethargic, as well as hypoxic while sleeping. He's been given a second dose of Narcan and again has become much more alert and interactive. - Related Data Allergies/Adverse Reactions: Allergies Allergy/AdvReac Type Severity Reaction Status Date / Time morphine Allergy Severe Shortness Verified 05/07/18 14:10 of Breath amoxicillin [From Augmentin] Allergy Cannot Verified 05/07/18 14:10 Remember clavulanic acid Allergy Cannot Verified 05/07/18 14:10 [From Augmentin] Remember Home Medications: Home Meds Doxazosin Mesylate 4 mg PO DAILY 09/14/13 [History] FLUoxetine HCl [Fluoxetine HCl] 40 mg PO DAILY 09/14/13 [History] Furosemide 20 mg PO DAILY 09/14/13 [History] Lisinopril 2.5 mg PO DAILY 11/16/13 [History] Omeprazole 20 mg PO BID 09/14/13 [History] Tamsulosin HCl 0.4 mg PO DAILY 09/14/13 [History] amLODIPine [Norvasc] 5 mg PO BID 09/14/13 [History] Albuterol Sulfate [Ventolin Hfa] 2 puff INH Q4H PRN 07/14/16 [History] Diazepam [Valium] 5 mg PO Q8H PRN 07/14/16 [History] Dutasteride [Avodart] 0.5 mg PO DAILY 07/14/16 [History] Gabapentin [Neurontin] 600 mg PO BID 07/14/16 [History] Simvastatin [Zocor] 40 mg PO DAILY 07/14/16 [History] Solifenacin [Vesicare] 5 mg PO BEDTIME 07/14/16 [History] oxyCODONE 15 mg PO Q4H PRN 07/14/16 [History] Cyclobenzaprine [Flexeril] 10 mg PO TID PRN 10/06/17 [History] FLUoxetine [PROzac] 20 mg PO DAILY 10/06/17 [History] Sennosides/Docusate Sodium [Senna-Docusate Sodium] 2 tab PO BID PRN 01/31/18 [ History] Carbidopa/Levodopa [Carbidopa-Levodopa 25-100 Tab] 0.5 tab PO DAILY 02/01/18 [ History] Lactobacillus Acidophilus [Acidophilus Lactobacillus] 1 each PO BID #60 capsule 02/04/18 [Rx] Past Medical History HEENT History: Reports: Allergic Rhinitis, Hard of Hearing, Other (See Below) Other HEENT History: difficulty swallowing, tinnitis Cardiovascular History: Reports: Arrhythmia, Bypass, CAD, High Cholesterol, Hypertension Respiratory History: Reports: Asthma Gastrointestinal History: Reports: Colon Polyp, Gastritis, GI Bleed, Hemorrhoids , Other (See Below) Other Gastrointestinal History: hernia Genitourinary History: Reports: Prostate Disorder, Renal Disease Musculoskeletal History: Reports: Other (See Below) Other Musculoskeletal History: "muscle cramps and spasms". right fib FX Neurological History: Reports: CVA, Headaches, Chronic, Parkinson's Psychiatric History: Reports: Anxiety, Depression Endocrine/Metabolic History: Reports: None - Infectious Disease History Infectious Disease History: Reports: Chicken Pox, Measles, Mumps - Past Surgical History HEENT Surgical History: Reports: Cataract Surgery, Tonsillectomy Cardiovascular Surgical History: Reports: Coronary Artery Bypass Respiratory Surgical History: Reports: None GI Surgical History: Reports: Appendectomy, Cholecystectomy, Colonoscopy, EGD, Hernia, Inguinal Male Surgical History: Reports: None Neurological Surgical History: Reports: None Musculoskeletal Surgical History: Reports: Knee Replacement Dermatological Surgical History: Reports: None Social & Family History - Family History Family Medical History: Noncontributory - Caffeine Use Caffeine Use: Reports: Coffee Caffeine Use Comment: 6-8 cups/day - Recreational Drug Use Recreational Drug Use: No H&P Review of Systems - Review of Systems: Review Of Systems: Unable To Obtain General: Reports: ROS unobtainable (Because of lethargy and sedation as well as confusion) Exam - Exam Exam: See Below - Vital Signs Vital Signs: Last Vital Signs Temp 98.3 F 05/07/18 14:15 Pulse 84 05/07/18 14:15 Resp 20 05/07/18 14:15 BP 112/56 L 05/07/18 14:15 Pulse Ox 96 05/07/18 14:15 Weight: 172 lb - Exam Quality Assessment: Supplemental Oxygen, Urinary Catheter, DVT Prophylaxis General: Sedated, Lethargic HEENT: Conjunctiva Clear, Normal Nasal Septum, Posterior Pharynx Clear, Pupils Equal. No: Hearing Intact, Mucosa Moist & [place] Neck: Supple, Trachea Midline, +2 Carotid Pulse wo Bruit Lungs: Decreased Breath Sounds. No: Rales, Rhonchi, Wheezing Cardiovascular: Regular Rate, Regular Rhythm, Normal S1, Normal S2. No: Systolic Murmur, Diastolic Murmur GI/Abdominal Exam: Soft, Non-Tender, No Organomegaly, No Distention Back Exam: Normal Inspection, Full Range of Motion Extremities: Non-Tender, Other (Splint in place on right lower leg) Skin: Warm, Dry Neurological: Cranial Nerves Intact, Strength Equal Bilateral, Sensation Intact , Other (Rigidity and possibly of movement consistent with Parkinson's disease) . No: Normal Speech Neuro Extensive - Mental Status: Disorientation to Place, Disorientation to Time , Memory Loss-Remote Events, Memory Loss-Recent Events. No: Alert - Patient Data Lab Results Last 24 hrs: Laboratory Results - last 24 hr 05/07/18 05/07/18 05/07/18 Range/Units 14:07 14:07 14:07 WBC 9.9 (4.5-11.0) K/uL RBC 3.92 L (4.30-5.90) M/uL Hgb 11.6 L (12.0-15.0) g/dL Hct 34.2 L (40.0-54.0) % MCV 87 (80-98) fL MCH 30 (27-31) pg MCHC 34 (32-36) % Plt Count 262 (150-400) K/uL Neut % (Auto) 58 (36-66) % Lymph % (Auto) 27 (24-44) % [place] % (Auto) 10 H (2-6) % Eos % (Auto) 5 H (2-4) % Baso % (Auto) 0 (0-1) % Puncture Site ABG pH (7.350-7.450) ABG pCO2 (35.0-42.0) mmHg ABG pO2 (75.0-100.0) mmHg ABG HCO3 (22.0-26.0) mmol/L ABG Total CO2 (23.0-27.0) mmol/L ABG O2 Saturation (95.0-98.0) % ABG O2 Content (15.0-23.0) %vol ABG Base Excess mm/L ABG Hemoglobin (13.5-18.0) g/dL ABG Oxyhemoglobin % ABG Carboxyhemoglobin (0.0-1.6) % ABG Methemoglobin % Maulik Test O2 Delivery Device Sodium 131 L (140-148) mmol/L Potassium 4.2 (3.6-5.2) mmol/L Chloride 97 L (100-108) mmol/L Carbon Dioxide 26 (21-32) mmol/L Anion Gap 12.2 (5.0-14.0) mmol/L BUN 52 H D (7-18) mg/dL Creatinine 3.0 H D (0.8-1.3) mg/dL Est Cr Clr Drug Dosing 19.97 mL/min Estimated GFR (MDRD) 20 L (>60) Glucose 120 H (74-106) mg/dL Calcium 8.5 (8.5-10.1) mg/dL Total Bilirubin 0.5 (0.2-1.0) mg/dL AST 16 (15-37) U/L ALT 9 L (12-78) U/L Alkaline Phosphatase 70 (46-116) U/L Troponin I < 0.017 (0.000-0.056) ng/mL Total Protein 6.3 L (6.4-8.2) g/dL Albumin 3.2 L (3.4-5.0) g/dL Globulin 3.1 (2.3-3.5) g/dL Albumin/Globulin Ratio 1.0 L (1.2-2.2) 05/07/18 Range/Units 15:03 WBC (4.5-11.0) K/uL RBC (4.30-5.90) M/uL Hgb (12.0-15.0) g/dL Hct (40.0-54.0) % MCV (80-98) fL MCH (27-31) pg MCHC (32-36) % Plt Count (150-400) K/uL Neut % (Auto) (36-66) % Lymph % (Auto) (24-44) % [place] % (Auto) (2-6) % Eos % (Auto) (2-4) % Baso % (Auto) (0-1) % Puncture Site Rt radial ABG pH 7.319 L (7.350-7.450) ABG pCO2 48.0 H (35.0-42.0) mmHg ABG pO2 58.7 L (75.0-100.0) mmHg ABG HCO3 23.9 (22.0-26.0) mmol/L ABG Total CO2 22.4 L (23.0-27.0) mmol/L ABG O2 Saturation 87.6 L (95.0-98.0) % ABG O2 Content 13.3 L (15.0-23.0) %vol ABG Base Excess -1.8 mm/L ABG Hemoglobin 11.1 L (13.5-18.0) g/dL ABG Oxyhemoglobin 85.0 % ABG Carboxyhemoglobin 2.4 H (0.0-1.6) % ABG Methemoglobin 0.6 % Maulik Test Passed O2 Delivery Device Nasal cannula Sodium (140-148) mmol/L Potassium (3.6-5.2) mmol/L Chloride (100-108) mmol/L Carbon Dioxide (21-32) mmol/L Anion Gap (5.0-14.0) mmol/L BUN (7-18) mg/dL Creatinine (0.8-1.3) mg/dL Est Cr Clr Drug Dosing mL/min Estimated GFR (MDRD) (>60) Glucose (74-106) mg/dL Calcium (8.5-10.1) mg/dL Total Bilirubin (0.2-1.0) mg/dL AST (15-37) U/L ALT (12-78) U/L Alkaline Phosphatase (46-116) U/L Troponin I (0.000-0.056) ng/mL Total Protein (6.4-8.2) g/dL Albumin (3.4-5.0) g/dL Globulin (2.3-3.5) g/dL Albumin/Globulin Ratio (1.2-2.2) Result Diagrams: 05/07/18 14:07 05/07/18 14:07 *Q Meaningful Use (ADM) - VTE Risk Assess *Q Each Risk Factor Represents 1 Point: Abnormal Pulmonary Function (COPD) Total Score 1 Point Risk Factors: 1 Each Risk Factor Represents 2 Points: None Total Score 2 Point Risk Factors: 0 Each Risk Factor Represents 3 Points: Age 75 Years or Greater Total Score 3 Point Risk Factors: 3 Each Risk Factor Represents 5 Points: Hip, Pelvis or Leg Fracture, Less than 1 month Total Score 5 Point Risk Factors: 5 Venous Thromboembolism Risk Factor Score *Q: 9 Problem List Initiated/Reviewed/Updated: Yes Orders Last 24hrs: Active Orders 24 hr Category Date Time Status Patient Status Manage Transfer [TRANSFER] Routine ADT 05/07/18 15:49 Active BIPAP Adult [RT BiPAP/CPAP] [RC] ASDIRECTED Care 05/07/18 15:46 Inactive EKG Documentation Completion [RC] ASDIRECTED Care 05/07/18 15:03 Active Insert Goode Catheter [Insert Urinary Catheter] [OM.PC] Care 05/07/18 16:00 Ordered Q24H Urinary Catheter Assessment [RC] ASDIRECTED Care 05/07/18 15:48 Active Chest 2V [CR] Urgent Exams 05/07/18 15:07 Taken DRUG SCREEN, URINE [URCHEM] Stat Lab 05/07/18 16:14 Ordered Resuscitation Status Routine Resus Stat 05/07/18 15:55 Ordered EKG 12 Lead [EK] Stat Ther 05/07/18 15:02 Ordered Assessment/Plan Comment:: ASSESSMENT AND PLAN ACUTE ON CHRONIC HYPOXIC AND HYPERCAPNIC RESPIRATORY FAILURE-likely secondary to oversedation related to his narcotics. Although his doses not change I suspect the level is elevated because of acute on chronic kidney injury. He has responded well to doses of Narcan with improvement in oxygenation and respiratory status. After discussion with family they do not want to consider use of BiPAP at the present time -Hold oxycodone -Narcan as needed for further episodes of oversedation and hypoxia -Cardiac monitoring and continuous pulse oximeter -Hold cyclobenzaprine and diazepam -Supplemental oxygen as needed COPD-at the present time does not appear to be experiencing a COPD exacerbation or underlying pulmonary infection -Nebulizer therapy as needed PARKINSON'S DISEASE-I history is had severe tremors and ongoing difficulty with rigidity, currently on fairly minimal therapy -Continue outpatient dose of Sinemet -Discuss with patient possibility of increasing use of Sinemet to see if this helps his ongoing symptoms RIGHT TIBIAL FRACTURE-plan had been for surgical repair -hold on surgery until medical issues have been corrected ACUTE KIDNEY INJURY-history of chronic kidney disease stage III, current creatinine is significantly elevated from baseline, likely secondary to dehydration and poor oral intake. History of bladder outlet obstruction -Goode catheter placement to closely monitor urine output -IV fluids for hydration -Recheck renal function in a.m. PALLIATIVE CARE-family reports that patient has been saying that he's worn out and has given up, will continue to discuss other options for management including hospice admission and comfort cares only MAINTENANCE ISSUES -DVT prophylaxis; Lovenox 30 mg subcutaneous daily -GI prophylaxis; continue outpatient PPI therapy -Goode catheter; as above -Nutrition; regular diet -Nicotine dependence; not required CODE STATUS-DNR/DNI ADMISSION STATUS-patient will be admitted to inpatient status, expect at least a 2 night hospital stay for evaluation and management of problems as outlined above. At the time of this admission I do not reasonably expected evaluation and management of this problem will require more than a 96 hour hospital stay. DISPOSITION-anticipate discharge to home after the hospital stay. PRIMARY CARE PROVIDER-Dr. Dorantes
[2018-05-07] MEDS ORDERED: Sodium Chloride 0.9% 10 ML Syringe FLUSH PRN (16:31)
[2018-05-07] MEDS ORDERED: Ondansetron 4 MG/2 ML SDV IV PRN (16:31)
[2018-05-07] MEDS ORDERED: Acetaminophen 325 MG Tab PO PRN (16:31)
[2018-05-07] MEDS ORDERED: Lactated Ringers 1,000 ML IV SCH ×2 (16:31→22:15)
[2018-05-07] MEDS ORDERED: Polyethylene Glycol 3350 Powder 17 GM Packet PO PRN (16:31)
[2018-05-07] MEDS ORDERED: Magnesium Hydroxide 400 MG/5 ML Susp 30 ML Cup PO PRN (16:31)
[2018-05-07] MEDS ORDERED: Albuterol 0.083% 2.5 MG/3 ML Neb Soln NEB PRN (16:31)
[2018-05-07] MEDS: Albuterol/Ipratropium 3.0-0.5 MG/3 ML Neb Soln NEB SCH ×2 (17:51→20:05)
[2018-05-07] MEDS: Pantoprazole 40 MG Tab.CR PO SCH (17:51)
[2018-05-07] MEDS ORDERED: Enoxaparin 30 MG/0.3 ML Syringe SUBCUT SCH (19:00)
[2018-05-07] MEDS ORDERED: Acetaminophen 650 MG Supp RECTAL PRN (19:43)
[2018-05-07] MEDS: amLODIPine 5 MG Tab PO SCH (20:05)
[2018-05-07] MEDS: Lactobacillus Rhamnosus GG (Probiotic) Cap PO SCH (20:05)
[2018-05-07] MEDS: Gabapentin 300 MG Cap PO SCH (20:05)
[2018-05-07] MEDS ORDERED: Trospium 20 MG Tab PO SCH (21:00)
[2018-05-08] MEDS: Albuterol/Ipratropium 3.0-0.5 MG/3 ML Neb Soln NEB SCH ×4 (07:20→22:08)
[2018-05-08] MEDS: oxyCODONE 5 MG Tab PO PRN ×5 (07:39→22:34)
--- NOTE | 2018-05-08 08:58 | CR ---
CHEST: 2 view CLINICAL HISTORY:Hypoxia COMPARISON:2017 FINDINGS: Patient has had previous sternotomy. Heart and pulmonary vascularity appear normal. There are atherosclerotic changes in the aorta.. Lungs are hyperaerated but clear.. IMPRESSION: Previous sternotomy Hyperaeration No acute cardiopulmonary process
[2018-05-08] MEDS ORDERED: FLUoxetine 20 MG Cap PO SCH (09:00)
[2018-05-08] MEDS ORDERED: Tamsulosin 0.4 MG Cap.ER PO SCH (09:00)
[2018-05-08] MEDS ORDERED: Dutasteride 0.5 MG Cap PO SCH (09:00)
[2018-05-08] MEDS ORDERED: Simvastatin 20 MG Tab PO SCH (09:00)
[2018-05-08] MEDS: Pantoprazole 40 MG Tab.CR PO SCH ×2 (12:42→18:00)
[2018-05-08] MEDS: amLODIPine 5 MG Tab PO SCH (12:43)
[2018-05-08] MEDS: Lisinopril 2.5 MG Tab PO SCH (12:43)
[2018-05-08] MEDS: Gabapentin 300 MG Cap PO SCH ×2 (12:43→22:09)
[2018-05-08] MEDS: Lactobacillus Rhamnosus GG (Probiotic) Cap PO SCH (12:43)
[2018-05-08] MEDS: Carbidopa/Levodopa 25-100 MG Tab PO SCH (12:44)
[2018-05-08] MEDS: FLUoxetine 20 MG Cap PO SCH (12:44)
--- NOTE | 2018-05-08 15:37 | PCM.PN ---
- General Info Date of Service: 05/08/18 Subjective Update: Mr. Botello was admitted yesterday with acute on chronic hypoxic and hypercapnic respiratory failure with underlying COPD. Also found to have acute on chronic kidney injury and long-standing severe Parkinson's disease. He had recently experienced a traumatic injury to his right lower leg and been found to have a tibial fracture. On admission family had decided on palliative care and refused use of any respiratory support including BiPAP. Later in the evening they decided that it was most consistent with the patient's previously expressed wishes that he be treated for comfort only and requested that all other interventions be discontinued. This morning he is noted to have new weakness in his right lower extremity, right upper extremity, and right face, consistent with acute CVA. Because of significant confusion he is unable to provide specific information concerning symptoms or review of systems. - Patient Data Vitals - Most Recent: Last Vital Signs Temp 98.3 F 05/08/18 09:37 Pulse 88 05/08/18 10:47 Resp 20 05/08/18 09:37 BP 91/40 L 05/08/18 12:43 Pulse Ox 92 L 05/08/18 09:37 Weight - Most Recent: 175 lb 4.28 oz I&O - Last 24 Hours: Intake & Output 05/08/18 05/08/18 05/08/18 06:59 14:59 22:59 Intake Total 50 240 Output Total 650 Balance -600 240 Lab Results Last 24 Hours: Laboratory Results - last 24 hr 05/07/18 05/07/18 05/07/18 Range/Units 14:07 15:03 16:14 Puncture Site Rt radial ABG pH 7.319 L (7.350-7.450) ABG pCO2 48.0 H (35.0-42.0) mmHg ABG pO2 58.7 L (75.0-100.0) mmHg ABG HCO3 23.9 (22.0-26.0) mmol/L ABG Total CO2 22.4 L (23.0-27.0) mmol/L ABG O2 Saturation 87.6 L (95.0-98.0) % ABG O2 Content 13.3 L (15.0-23.0) %vol ABG Base Excess -1.8 mm/L ABG Hemoglobin 11.1 L (13.5-18.0) g/dL ABG Oxyhemoglobin 85.0 % ABG Carboxyhemoglobin 2.4 H (0.0-1.6) % ABG Methemoglobin 0.6 % Maulik Test Passed O2 Delivery Device Nasal cannula Troponin I < 0.017 (0.000-0.056) ng/mL Urine Opiates Screen Negative (NEGATIVE) Ur Oxycodone Screen Presumptive positive H (NEGATIVE) Urine Methadone Screen Negative (NEGATIVE) Ur Propoxyphene Screen Negative (NEGATIVE) Ur Barbiturates Screen Negative (NEGATIVE) Ur Tricyclics Screen Presumptive positive H (NEGATIVE) Ur Phencyclidine Scrn Negative (NEGATIVE) Ur Amphetamine Screen Negative (NEGATIVE) U Methamphetamines Scrn Negative (NEGATIVE) Urine MDMA Screen Negative (NEGATIVE) U Benzodiazepines Scrn Presumptive positive H (NEGATIVE) U Cocaine Metab Screen Negative (NEGATIVE) U Marijuana (THC) Screen Negative (NEGATIVE) Med Orders - Current: Current Medications Acetaminophen (Tylenol) 650 mg PO Q4H PRN PRN Reason: Pain (Mild 1-3)/fever Acetaminophen (Tylenol) 650 mg RECTAL Q4H PRN PRN Reason: Fever Albuterol (Proventil Neb Soln) 2.5 mg NEB Q4H PRN PRN Reason: Shortness Of Breath/wheezing Albuterol/Ipratropium (Duoneb 3.0-0.5 Mg/3 Ml) 3 ml NEB QIDRT [facility] Last Admin: 05/08/18 15:12 Dose: 3 ml Carbidopa/Levodopa (Sinemet 25-100 Mg) 0.5 tab PO DAILY [facility] Last Admin: 05/08/18 12:44 Dose: Not Given Fluoxetine HCl (Prozac) 40 mg PO DAILY [facility] Last Admin: 05/08/18 12:44 Dose: Not Given Gabapentin (Neurontin) 600 mg PO BID [facility] Last Admin: 05/08/18 12:43 Dose: Not Given Lisinopril (Prinivil) 2.5 mg PO DAILY [facility] Last Admin: 05/08/18 12:43 Dose: Not Given Magnesium Hydroxide (Milk Of Magnesia) 30 ml PO Q12H PRN PRN Reason: Constipation Ondansetron HCl (Zofran) 4 mg IV Q4H PRN PRN Reason: Nausea/Vomiting Oxycodone HCl (Oxycodone) 5 - 10 mg PO Q4H PRN PRN Reason: Pain (moderate 4-6) Last Admin: 05/08/18 14:41 Dose: 10 mg [facility] Admin: 05/08/18 12:42 Dose: Not Given Polyethylene Glycol (Miralax) 17 gm PO DAILY PRN PRN Reason: Constipation Senna/Docusate Sodium (Senna Plus) 1 tab PO BID PRN PRN Reason: Constipation Sodium Chloride (Saline Flush) 10 ml FLUSH ASDIRECTED PRN PRN Reason: Keep Vein Open Discontinued Medications Amlodipine Besylate (Norvasc) 5 mg PO BID [facility] Last Admin: 05/08/18 12:43 Dose: Not Given Dutasteride (Avodart) 0.5 mg PO DAILY [facility] Last Admin: 05/08/18 12:42 Dose: Not Given Enoxaparin Sodium (Lovenox) 30 mg SUBCUT Q24H [facility] Last Admin: 05/07/18 20:04 Dose: Not Given Lactated Ringer's (Ringers, Lactated) 1,000 mls @ 250 mls/hr IV ASDIRECTED [facility] Stop: 05/07/18 22:32 Lactated Ringer's (Ringers, Lactated) 1,000 mls @ 125 mls/hr IV ASDIRECTED [facility] Lactobacillus Rhamnosus (Culturelle) 1 cap PO BID [facility] Last Admin: 05/08/18 12:43 Dose: Not Given Naloxone HCl (Narcan) 0.2 mg IVPUSH ONETIME PRN PRN Reason: Oversedation Last Admin: 05/07/18 14:13 Dose: 0.2 mg Naloxone HCl (Narcan) 0.2 mg IVPUSH ONETIME ONE Stop: 05/07/18 15:45 Last Admin: 05/07/18 15:47 Dose: 0.2 mg Naloxone HCl (Narcan) 0.1 mg IVPUSH Q1H PRN PRN Reason: Oversedation Simvastatin (Zocor) 40 mg PO DAILY [facility] Last Admin: 05/08/18 12:44 Dose: Not Given Tamsulosin HCl (Flomax) 0.4 mg PO DAILY [facility] Last Admin: 05/08/18 12:43 Dose: Not Given Trospium (Sanctura) 20 mg PO BEDTIME [facility] Last Admin: 05/07/18 20:05 Dose: Not Given - Exam Quality Assessment: Supplemental Oxygen, Urine Catheter General: Cooperative, Mild Distress Lungs: Decreased Breath Sounds. No: Crackles, Rales, Rhonchi, Wheezing Cardiovascular: Regular Rate, Regular Rhythm, No Murmurs GI/Abdominal Exam: Soft, Non-Tender, No Organomegaly, No Distention Extremities: No Pedal Edema, Other (Right lower leg is in a soft splint) Skin: Warm, Dry - Problem List Review Problem List Initiated/Reviewed/Updated: Yes - My Orders Last 24 Hours: My Active Orders 05/07/18 15:02 EKG 12 Lead [EK] Stat 05/07/18 15:03 EKG Documentation Completion [RC] ASDIRECTED 05/07/18 15:46 BIPAP Adult [RT BiPAP/CPAP] [RC] ASDIRECTED 05/07/18 15:55 Resuscitation Status Routine 05/07/18 16:31 Patient Status [ADT] Routine Oxygen Therapy [RC] PRN Peripheral IV Care [RC] . DIRECTED RT Aerosol Therapy [RC] ASDIRECTED Acetaminophen [Tylenol] 650 mg PO Q4H PRN Albuterol [Proventil Neb Soln] 2.5 mg NEB Q4H PRN Docusate Sodium/Sennosides [Senna Plus] 1 tab PO BID PRN Magnesium Hydroxide [Milk of Magnesia] 30 ml PO Q12H PRN Ondansetron [Zofran] 4 mg IV Q4H PRN Polyethylene Glycol 3350 [MiraLAX] 17 gm PO DAILY PRN Sodium Chloride 0.9% [Saline Flush] 10 ml FLUSH ASDIRECTED PRN Peripheral IV Insertion Adult [OM.PC] Routine 05/07/18 16:48 Albuterol/Ipratropium [DuoNeb 3.0-0.5 MG/3 ML] 3 ml NEB QIDRT 05/07/18 17:42 Oxygen Therapy [RC] ASDIRECTED 05/07/18 18:00 Pantoprazole [ProTONIX] 40 mg PO BIDAC 05/07/18 19:43 Acetaminophen [Tylenol] 650 mg RECTAL Q4H PRN 05/07/18 20:27 oxyCODONE 5 - 10 mg PO Q4H PRN 05/07/18 21:00 Gabapentin [Neurontin] 600 mg PO BID 05/08/18 09:00 Carbidopa/Levodopa [Sinemet 25-100 mg] 0.5 tab PO DAILY FLUoxetine [PROzac] 40 mg PO DAILY Lisinopril [Prinivil] 2.5 mg PO DAILY 05/08/18 13:16 Consult to Hospice [CONS] Routine - Plan Plan:: ASSESSMENT AND PLAN ACUTE ON CHRONIC HYPOXIC AND HYPERCAPNIC RESPIRATORY FAILURE-initially family had refused use of respiratory support including noninvasive positive pressure ventilation and further intervention with Narcan. They have now decided on comfort cares only -Supplemental oxygen as needed -Oxycodone and lorazepam as needed for comfort COPD-at the present time does not appear to be experiencing a COPD exacerbation or underlying pulmonary infection -Nebulizer therapy as needed PARKINSON'S DISEASE -Continue outpatient dose of Sinemet RIGHT TIBIAL FRACTURE -Comfort cares only -Surgery has been canceled ACUTE KIDNEY INJURY -Goode catheter placement for comfort PALLIATIVE CARE-family reports that patient has been saying that he's worn out and has given up, he is currently comfort cares only, family feels that this is most consistent with his recently expressed wishes. MAINTENANCE ISSUES -DVT prophylaxis; -GI prophylaxis; continue outpatient PPI therapy -Goode catheter; as above -Nutrition; regular diet -Nicotine dependence; not required CODE STATUS-DNR/DNI/COMFORT CARES ONLY ADMISSION STATUS-patient will be admitted to inpatient status, expect at least a 2 night hospital stay for evaluation and management of problems as outlined above. At the time of this admission I do not reasonably expected evaluation and management of this problem will require more than a 96 hour hospital stay. DISPOSITION-anticipate discharge to home with hospice in 2 days PRIMARY CARE PROVIDER-Dr. Dorantes
[2018-05-09] MEDS: oxyCODONE 5 MG Tab PO PRN ×3 (03:10→11:31)
[2018-05-09] MEDS: Albuterol/Ipratropium 3.0-0.5 MG/3 ML Neb Soln NEB SCH ×4 (07:08→23:19)
[2018-05-09 08:44] VITALS: BP 118/47
[2018-05-09] MEDS: Gabapentin 300 MG Cap PO SCH ×2 (09:59→23:19)
[2018-05-09] MEDS: Pantoprazole 40 MG Tab.CR PO SCH ×2 (10:00→16:09)
[2018-05-09] MEDS: Lisinopril 2.5 MG Tab PO SCH (11:31)
[2018-05-09] MEDS: FLUoxetine 20 MG Cap PO SCH (11:31)
[2018-05-09] MEDS: Carbidopa/Levodopa 25-100 MG Tab PO SCH (11:31)
[2018-05-09] MEDS ORDERED: Haloperidol Lactate 2 MG/ML Oral Soln 15 ML Bottle PO PRN (12:30)
[2018-05-09] MEDS: LORazepam ORAL Concentrate 1MG/0.5ML U/D BUCCAL PRN ×4 (12:51→23:48)
[2018-05-09] MEDS: oxyCODONE 10 MG/0.5 ML ORAL U/D PO PRN ×4 (15:35→23:48)
--- NOTE | 2018-05-09 18:45 | PCM.PN ---
- General Info Date of Service: 05/09/18 Subjective Update: Mr. Botello has been stable over the past 24 hours. He remains confused and family reports that pain medication does not seem to be lasting long enough. Because of confusion is unable to provide reliable information concerning symptoms or review of systems. - Patient Data Vitals - Most Recent: Last Vital Signs Temp 98.8 F 05/09/18 08:22 Pulse 72 05/09/18 10:54 Resp 17 05/09/18 08:22 BP 118/47 L 05/09/18 08:22 Pulse Ox 92 L 05/09/18 08:22 Weight - Most Recent: 175 lb 4.28 oz I&O - Last 24 Hours: Intake & Output 05/09/18 05/09/18 05/09/18 06:59 14:59 22:59 Intake Total 150 100 Output Total 450 Balance -450 150 100 Med Orders - Current: Current Medications Acetaminophen (Tylenol) 650 mg PO Q4H PRN PRN Reason: Pain (Mild 1-3)/fever Acetaminophen (Tylenol) 650 mg RECTAL Q4H PRN PRN Reason: Fever Albuterol (Proventil Neb Soln) 2.5 mg NEB Q4H PRN PRN Reason: Shortness Of Breath/wheezing Albuterol/Ipratropium (Duoneb 3.0-0.5 Mg/3 Ml) 3 ml NEB QIDRT [facility] Last Admin: 05/09/18 14:44 Dose: 3 ml Carbidopa/Levodopa (Sinemet 25-100 Mg) 0.5 tab PO DAILY [facility] Last Admin: 05/09/18 11:31 Dose: Not Given Fluoxetine HCl (Prozac) 40 mg PO DAILY [facility] Last Admin: 05/09/18 11:31 Dose: Not Given Gabapentin (Neurontin) 600 mg PO BID [facility] Last Admin: 05/09/18 09:59 Dose: 600 mg Haloperidol Lactate (Haldol 2 Mg/Ml Soln) 1 mg PO Q2H PRN PRN Reason: Agitation Lisinopril (Prinivil) 2.5 mg PO DAILY [facility] Last Admin: 05/09/18 11:31 Dose: Not Given Lorazepam (Ativan Oral Concentrate 1mg/0.5 Ml U/D) 0.5 mg BUCCAL Q2H PRN PRN Reason: Agitation Last Admin: 05/09/18 12:51 Dose: 0.5 mg Magnesium Hydroxide (Milk Of Magnesia) 30 ml PO Q12H PRN PRN Reason: Constipation Last Admin: 05/09/18 07:47 Dose: 30 ml Ondansetron HCl (Zofran) 4 mg IV Q4H PRN PRN Reason: Nausea/Vomiting Oxycodone HCl (Oxycodone) 5 - 10 mg PO Q4H PRN PRN Reason: Pain (moderate 4-6) Last Admin: 05/09/18 11:31 Dose: 10 mg Oxycodone HCl (Oxycodone Oral Concentrate 10mg/0.5 Ml U/D) 5 - 10 mg PO Q2H PRN PRN Reason: PAIN Last Admin: 05/09/18 15:35 Dose: 10 mg Pantoprazole Sodium (Protonix) 40 mg PO BIDAC [facility] Last Admin: 05/09/18 16:09 Dose: Not Given Polyethylene Glycol (Miralax) 17 gm PO DAILY PRN PRN Reason: Constipation Last Admin: 05/09/18 07:47 Dose: 17 gm Senna/Docusate Sodium (Senna Plus) 1 tab PO BID PRN PRN Reason: Constipation Sodium Chloride (Saline Flush) 10 ml FLUSH ASDIRECTED PRN PRN Reason: Keep Vein Open Discontinued Medications Amlodipine Besylate (Norvasc) 5 mg PO BID [facility] Last Admin: 05/08/18 12:43 Dose: Not Given Dutasteride (Avodart) 0.5 mg PO DAILY [facility] Last Admin: 05/08/18 12:42 Dose: Not Given Enoxaparin Sodium (Lovenox) 30 mg SUBCUT Q24H [facility] Last Admin: 05/07/18 20:04 Dose: Not Given Lactated Ringer's (Ringers, Lactated) 1,000 mls @ 250 mls/hr IV ASDIRECTED [facility] Stop: 05/07/18 22:32 Lactated Ringer's (Ringers, Lactated) 1,000 mls @ 125 mls/hr IV ASDIRECTED [facility] Lactobacillus Rhamnosus (Culturelle) 1 cap PO BID [facility] Last Admin: 05/08/18 12:43 Dose: Not Given Naloxone HCl (Narcan) 0.2 mg IVPUSH ONETIME PRN PRN Reason: Oversedation Last Admin: 05/07/18 14:13 Dose: 0.2 mg Naloxone HCl (Narcan) 0.2 mg IVPUSH ONETIME ONE Stop: 05/07/18 15:45 Last Admin: 05/07/18 15:47 Dose: 0.2 mg Naloxone HCl (Narcan) 0.1 mg IVPUSH Q1H PRN PRN Reason: Oversedation Simvastatin (Zocor) 40 mg PO DAILY [facility] Last Admin: 05/08/18 12:44 Dose: Not Given Tamsulosin HCl (Flomax) 0.4 mg PO DAILY [facility] Last Admin: 05/08/18 12:43 Dose: Not Given Trospium (Sanctura) 20 mg PO BEDTIME [facility] Last Admin: 05/07/18 20:05 Dose: Not Given - Exam General: Cooperative, Mild Distress Lungs: Clear to Auscultation, Normal Respiratory Effort Cardiovascular: Regular Rate, Regular Rhythm, No Murmurs GI/Abdominal Exam: Soft, Non-Tender, No Organomegaly, No Distention - Problem List Review Problem List Initiated/Reviewed/Updated: Yes - My Orders Last 24 Hours: My Active Orders 05/09/18 11:55 oxyCODONE [oxyCODONE ORAL Concentrate 10MG/0.5 ML U/D] 5 - 10 mg PO Q2H PRN 05/09/18 12:30 Haloperidol Lactate [Haldol 2 MG/ML Soln] 1 mg PO Q2H PRN LORazepam [Ativan ORAL Concentrate 1MG/0.5 ML U/D] 0.5 mg BUCCAL Q2H PRN - Plan Plan:: ASSESSMENT AND PLAN ACUTE ON CHRONIC HYPOXIC AND HYPERCAPNIC RESPIRATORY FAILURE-initially family had refused use of respiratory support including noninvasive positive pressure ventilation and further intervention with Narcan. They have now decided on comfort cares only -Supplemental oxygen as needed -Oxycodone and lorazepam as needed for comfort, decrease pain medication interval COPD-at the present time does not appear to be experiencing a COPD exacerbation or underlying pulmonary infection -Nebulizer therapy as needed PARKINSON'S DISEASE -Continue outpatient dose of Sinemet RIGHT TIBIAL FRACTURE -Comfort cares only -Surgery has been canceled ACUTE KIDNEY INJURY -Goode catheter placement for comfort PALLIATIVE CARE-family reports that patient has been saying that he's worn out and has given up, he is currently comfort cares only, family feels that this is most consistent with his recently expressed wishes. MAINTENANCE ISSUES -DVT prophylaxis; -GI prophylaxis; continue outpatient PPI therapy -Goode catheter; as above -Nutrition; regular diet -Nicotine dependence; not required CODE STATUS-DNR/DNI/COMFORT CARES ONLY ADMISSION STATUS-patient will be admitted to inpatient status, expect at least a 2 night hospital stay for evaluation and management of problems as outlined above. At the time of this admission I do not reasonably expected evaluation and management of this problem will require more than a 96 hour hospital stay. DISPOSITION-anticipate discharge to home with hospice tomorrow PRIMARY CARE PROVIDER-Dr. Dorantes
[2018-05-10] MEDS: oxyCODONE 10 MG/0.5 ML ORAL U/D PO PRN ×10 (02:25→23:06)
[2018-05-10] MEDS: LORazepam ORAL Concentrate 1MG/0.5ML U/D BUCCAL PRN ×9 (02:25→20:45)
[2018-05-10] MEDS: Albuterol/Ipratropium 3.0-0.5 MG/3 ML Neb Soln NEB SCH ×4 (07:32→23:10)
[2018-05-10] MEDS: Gabapentin 300 MG Cap PO SCH ×2 (09:16→23:10)
[2018-05-10] MEDS: Pantoprazole 40 MG Tab.CR PO SCH ×2 (09:16→16:10)
[2018-05-10] MEDS: Carbidopa/Levodopa 25-100 MG Tab PO SCH (09:17)
[2018-05-10] MEDS: FLUoxetine 20 MG Cap PO SCH (09:17)
[2018-05-10] MEDS: Lisinopril 2.5 MG Tab PO SCH (09:17)
--- NOTE | 2018-05-10 10:57 | PCM.PN ---
- General Info Date of Service: 05/10/18 Subjective Update: Mr. Botello has deteriorated since yesterday and is much less responsive, respirations had become very irregular with more prolonged apneic episodes. Plan had been for discharge to home with hospice today but he does appear to be imminently dying so we'll cancel plan for discharge and continue current cares in the hospital. Family feels that he is been fairly comfortable over the past 24 hours with current management. Because of decreased level of consciousness he is unable to provide significant information concerning symptoms or review of systems. - Patient Data Vitals - Most Recent: Last Vital Signs Temp 98.8 F 05/09/18 08:22 Pulse 72 05/09/18 10:54 Resp 17 05/09/18 08:22 BP 118/47 L 05/09/18 08:22 Pulse Ox 92 L 05/09/18 08:22 Weight - Most Recent: 175 lb 4.28 oz I&O - Last 24 Hours: Intake & Output 05/09/18 05/10/18 05/10/18 22:59 06:59 14:59 Intake Total 100 Output Total 650 550 Balance -550 -550 Med Orders - Current: Current Medications Acetaminophen (Tylenol) 650 mg PO Q4H PRN PRN Reason: Pain (Mild 1-3)/fever Acetaminophen (Tylenol) 650 mg RECTAL Q4H PRN PRN Reason: Fever Albuterol (Proventil Neb Soln) 2.5 mg NEB Q4H PRN PRN Reason: Shortness Of Breath/wheezing Albuterol/Ipratropium (Duoneb 3.0-0.5 Mg/3 Ml) 3 ml NEB QIDRT [facility] Last Admin: 05/10/18 10:39 Dose: Not Given Carbidopa/Levodopa (Sinemet 25-100 Mg) 0.5 tab PO DAILY [facility] Last Admin: 05/10/18 09:17 Dose: Not Given Fluoxetine HCl (Prozac) 40 mg PO DAILY [facility] Last Admin: 05/10/18 09:17 Dose: Not Given Gabapentin (Neurontin) 600 mg PO BID [facility] Last Admin: 05/10/18 09:16 Dose: Not Given Haloperidol Lactate (Haldol 2 Mg/Ml Soln) 1 mg PO Q2H PRN PRN Reason: Agitation Lisinopril (Prinivil) 2.5 mg PO DAILY [facility] Last Admin: 05/10/18 09:17 Dose: Not Given Lorazepam (Ativan Oral Concentrate 1mg/0.5 Ml U/D) 0.5 mg BUCCAL Q2H PRN PRN Reason: Agitation Last Admin: 05/10/18 09:15 Dose: 0.5 mg Magnesium Hydroxide (Milk Of Magnesia) 30 ml PO Q12H PRN PRN Reason: Constipation Last Admin: 05/09/18 07:47 Dose: 30 ml Ondansetron HCl (Zofran) 4 mg IV Q4H PRN PRN Reason: Nausea/Vomiting Oxycodone HCl (Oxycodone) 5 - 10 mg PO Q4H PRN PRN Reason: Pain (moderate 4-6) Last Admin: 05/09/18 11:31 Dose: 10 mg Oxycodone HCl (Oxycodone Oral Concentrate 10mg/0.5 Ml U/D) 5 - 10 mg PO Q2H PRN PRN Reason: PAIN Last Admin: 05/10/18 10:30 Dose: 10 mg [facility] Admin: 05/10/18 09:16 Dose: Not Given Polyethylene Glycol (Miralax) 17 gm PO DAILY PRN PRN Reason: Constipation Last Admin: 05/09/18 07:47 Dose: 17 gm Senna/Docusate Sodium (Senna Plus) 1 tab PO BID PRN PRN Reason: Constipation Sodium Chloride (Saline Flush) 10 ml FLUSH ASDIRECTED PRN PRN Reason: Keep Vein Open Discontinued Medications Amlodipine Besylate (Norvasc) 5 mg PO BID [facility] Last Admin: 05/08/18 12:43 Dose: Not Given Dutasteride (Avodart) 0.5 mg PO DAILY [facility] Last Admin: 05/08/18 12:42 Dose: Not Given Enoxaparin Sodium (Lovenox) 30 mg SUBCUT Q24H [facility] Last Admin: 05/07/18 20:04 Dose: Not Given Lactated Ringer's (Ringers, Lactated) 1,000 mls @ 250 mls/hr IV ASDIRECTED [facility] Stop: 05/07/18 22:32 Lactated Ringer's (Ringers, Lactated) 1,000 mls @ 125 mls/hr IV ASDIRECTED [facility] Lactobacillus Rhamnosus (Culturelle) 1 cap PO BID [facility] Last Admin: 05/08/18 12:43 Dose: Not Given Naloxone HCl (Narcan) 0.2 mg IVPUSH ONETIME PRN PRN Reason: Oversedation Last Admin: 05/07/18 14:13 Dose: 0.2 mg Naloxone HCl (Narcan) 0.2 mg IVPUSH ONETIME ONE Stop: 05/07/18 15:45 Last Admin: 05/07/18 15:47 Dose: 0.2 mg Naloxone HCl (Narcan) 0.1 mg IVPUSH Q1H PRN PRN Reason: Oversedation Simvastatin (Zocor) 40 mg PO DAILY [facility] Last Admin: 05/08/18 12:44 Dose: Not Given Tamsulosin HCl (Flomax) 0.4 mg PO DAILY [facility] Last Admin: 05/08/18 12:43 Dose: Not Given Trospium (Sanctura) 20 mg PO BEDTIME [facility] Last Admin: 05/07/18 20:05 Dose: Not Given - Exam General: Sedated, Obtunded Lungs: Decreased Breath Sounds, Rhonchi. No: Normal Respiratory Effort Cardiovascular: Regular Rate, Regular Rhythm, No Murmurs GI/Abdominal Exam: Soft, Non-Tender, No Organomegaly, No Distention - Problem List Review Problem List Initiated/Reviewed/Updated: Yes - My Orders Last 24 Hours: My Active Orders 05/09/18 11:55 oxyCODONE [oxyCODONE ORAL Concentrate 10MG/0.5 ML U/D] 5 - 10 mg PO Q2H PRN 05/09/18 12:30 Haloperidol Lactate [Haldol 2 MG/ML Soln] 1 mg PO Q2H PRN LORazepam [Ativan ORAL Concentrate 1MG/0.5 ML U/D] 0.5 mg BUCCAL Q2H PRN - Plan Plan:: ASSESSMENT AND PLAN ACUTE ON CHRONIC HYPOXIC AND HYPERCAPNIC RESPIRATORY FAILURE-initially family had refused use of respiratory support including noninvasive positive pressure ventilation and further intervention with Narcan. They have now decided on comfort cares only -Supplemental oxygen as needed -Oxycodone and lorazepam as needed for comfort, decrease pain medication interval COPD-at the present time does not appear to be experiencing a COPD exacerbation or underlying pulmonary infection -Nebulizer therapy as needed PARKINSON'S DISEASE -Continue outpatient dose of Sinemet RIGHT TIBIAL FRACTURE -Comfort cares only -Surgery has been canceled ACUTE KIDNEY INJURY -Goode catheter placement for comfort PALLIATIVE CARE-family reports that patient has been saying that he's worn out and has given up, he is currently comfort cares only, family feels that this is most consistent with his recently expressed wishes. MAINTENANCE ISSUES -DVT prophylaxis; -GI prophylaxis; continue outpatient PPI therapy -Goode catheter; as above -Nutrition; regular diet -Nicotine dependence; not required CODE STATUS-DNR/DNI/COMFORT CARES ONLY ADMISSION STATUS-patient will be admitted to inpatient status, expect at least a 2 night hospital stay for evaluation and management of problems as outlined above. At the time of this admission I do not reasonably expected evaluation and management of this problem will require more than a 96 hour hospital stay. DISPOSITION -Patient appears to be imminently dying, will hold on discharged home with hospice PRIMARY CARE PROVIDER-Dr. Dorantes
[2018-05-11] MEDS: oxyCODONE 10 MG/0.5 ML ORAL U/D PO PRN ×3 (01:01→05:24)
[2018-05-11] MEDS: Atropine Sulfate Ophth 2 ML Drops SL PRN ×4 (01:46→05:23)
[2018-05-11] MEDS: LORazepam ORAL Concentrate 1MG/0.5ML U/D BUCCAL PRN ×2 (01:47→04:09)
[2018-05-11] MEDS ORDERED: Atropine Sulfate Ophth 2 ML Drops SL PRN ×2 (07:04→07:05)
--- NOTE | 2018-05-11 08:20 | PCM.DCSUM1 ---
Discharge Summary - Hospital Course Brief History: Mr. Botello was a 77-year-old gentleman who was admitted through the emergency department following an unresponsive episode with acute on chronic hypoxic and hypercapnic respiratory failure, secondary to narcotic effect. - Discharge Data Discharge Date: 05/11/18 Discharge Disposition: 20 Condition: - Discharge Diagnosis/Problem(s) (1) Acute kidney injury SNOMED Code(s): 19352425 ICD Code: N17.9 - ACUTE KIDNEY FAILURE, UNSPECIFIED Status: Acute Current Visit: Yes (2) Acute on chronic respiratory failure with hypoxia and hypercapnia SNOMED Code(s): 66023464, 971735042 ICD Code: J96.21 - ACUTE AND CHRONIC RESPIRATORY FAILURE WITH HYPOXIA; J96.22 - ACUTE AND CHRONIC RESPIRATORY FAILURE WITH HYPERCAPNIA Status: Acute Current Visit: Yes (3) Acute cerebrovascular accident (CVA) SNOMED Code(s): 342107112, 972672687 ICD Code: I63.9 - CEREBRAL INFARCTION, UNSPECIFIED Status: Acute Current Visit: Yes (4) Palliative care status SNOMED Code(s): 426906563 ICD Code: Z51.5 - ENCOUNTER FOR PALLIATIVE CARE Status: Acute Current Visit: Yes (5) Fracture of fibula SNOMED Code(s): 44247922 ICD Code: S82.409A - UNSP FRACTURE OF SHAFT OF UNSP FIBULA, INIT FOR CLOS FX Status: Acute Current Visit: No (6) Unresponsive episode SNOMED Code(s): 326976069 ICD Code: R41.89 - OTH SYMPTOMS AND SIGNS W COGNITIVE FUNCTIONS AND AWARENESS Status: Acute Current Visit: Yes (7) Parkinsons disease SNOMED Code(s): 39708962 ICD Code: G20 - PARKINSON'S DISEASE Status: Chronic Current Visit: Yes (8) Stage III chronic kidney disease SNOMED Code(s): 178248554 ICD Code: N18.3 - CHRONIC KIDNEY DISEASE, STAGE 3 (MODERATE) Status: Chronic Current Visit: No - Patient Summary/Data Consults: Consultations 05/08/18 13:16 Consult to Hospice [CONS] Routine Comment: Physician Instructions: Reason for Consult: End-of-life care Hospital Course: Mr. Botello was a 77-year-old gentleman who was admitted through the emergency department with acute on chronic hypoxic and hypercapnic respiratory failure secondary to oversedation related to narcotic use. He recently injured his right lower leg and has been found to have a fibular fracture. He has known underlying COPD as well as chronic kidney disease stage III and Parkinson's disease. He uses oxycodone regularly for management of musculoskeletal pain related to his Parkinson's disease and is also been using the medication regularly over the past few days because of his new fracture. Family denies that he is been taking more than the prescribed dose of oxycodone. He's been found to have on evaluation in emergency department acute kidney injury with a creatinine of 3.0. This is elevated significantly from his baseline, likely prerenal in nature related to poor oral intake over the past few days. He was sleeping in his wheelchair waiting for an appointment at the clinic this afternoon when he was noted to be cyanotic with very poor and shallow respirations. He was brought immediately to the emergency department and was given Narcan because of his history of narcotic use. He improved significantly after use of Narcan but then became very weak and lethargic, as well as hypoxic while sleeping. He's been given a second dose of Narcan and again has become much more alert and interactive. In the emergency department discussion was held with the patient's children concerning his wishes for ongoing medical care. The reported that he had been progressively more weak over the past few months and had been reporting that he wanted to give up and did not feel that his current quality of living was very good. He had told him on many occasions recently that he was ready to . Initially decision was made to give some IV fluids as well as supportive care but no further aggressive interventions including no use of noninvasive positive pressure ventilation. On admission IV fluids were ordered but family very shortly thereafter decided to go with comfort measures only and no further aggressive interventions or evaluation. They felt this was very consistent with her father's previously expressed wishes, he was made DNR/DNI comfort measures only. Oxycodone and lorazepam were used as needed for comfort. On the morning following admission it was apparent that he experienced an acute CVA with fairly prominent right lower extremity weakness, right upper extremity weakness, and right facial weakness. No further interventions were performed given the patient's and family 's wishes for comfort cares only. Plan had been to discharge the patient to home with hospice but on the day of planned discharge May 10 he appeared to be imminently dying and decision was made to keep him in the hospital. He early on the morning of May 11 and no attempts were made at resuscitation as per the patient's and family's previously expressed wishes. - Discharge Plan *PRESCRIPTION DRUG MONITORING PROGRAM REVIEWED*: Not Applicable *COPY OF PRESCRIPTION DRUG MONITORING REPORT IN PATIENT HOOD: Not Applicable Home Medications: Home Meds Doxazosin Mesylate 4 mg PO DAILY 09/14/13 [History] FLUoxetine HCl [Fluoxetine HCl] 40 mg PO DAILY 09/14/13 [History] Furosemide 20 mg PO DAILY 09/14/13 [History] Lisinopril 2.5 mg PO DAILY 09/14/13 [History] Omeprazole 20 mg PO BID 09/14/13 [History] Tamsulosin HCl 0.4 mg PO DAILY 09/14/13 [History] amLODIPine [Norvasc] 5 mg PO BID 09/14/13 [History] Albuterol Sulfate [Ventolin Hfa] 2 puff INH Q4H PRN 07/14/16 [History] Diazepam [Valium] 5 mg PO Q8H PRN 07/14/16 [History] Dutasteride [Avodart] 0.5 mg PO DAILY 07/14/16 [History] Gabapentin [Neurontin] 600 mg PO BID 07/14/16 [History] Simvastatin [Zocor] 40 mg PO DAILY 07/14/16 [History] Solifenacin [Vesicare] 5 mg PO BEDTIME 07/14/16 [History] oxyCODONE 15 mg PO Q4H PRN 07/14/16 [History] Cyclobenzaprine [Flexeril] 10 mg PO TID PRN 10/06/17 [History] FLUoxetine [PROzac] 20 mg PO DAILY 10/06/17 [History] Sennosides/Docusate Sodium [Senna-Docusate Sodium] 2 tab PO BID PRN 01/31/18 [ History] Carbidopa/Levodopa [Carbidopa-Levodopa 25-100 Tab] 0.5 tab PO DAILY 02/01/18 [ History] Lactobacillus Acidophilus [Acidophilus Lactobacillus] 1 each PO BID #60 capsule 02/04/18 [Rx] Referrals: Dallas Dorantes MD [Primary Care Provider] - - Discharge Summary/Plan Comment DC Time >30 min.: No - Patient Data Vitals - Most Recent: Last Vital Signs Temp 98.8 F 05/09/18 08:22 Pulse 72 05/09/18 10:54 Resp 17 05/09/18 08:22 BP 118/47 L 05/09/18 08:22 Pulse Ox 92 L 05/09/18 08:22 Weight - Most Recent: 175 lb 4.28 oz I&O - Last 24 hours: Intake & Output 05/10/18 05/11/18 05/11/18 22:59 06:59 14:59 Output Total 500 350 Balance -500 -350 Med Orders - Current: Current Medications Acetaminophen (Tylenol) 650 mg PO Q4H PRN PRN Reason: Pain (Mild 1-3)/fever Acetaminophen (Tylenol) 650 mg RECTAL Q4H PRN PRN Reason: Fever Albuterol (Proventil Neb Soln) 2.5 mg NEB Q4H PRN PRN Reason: Shortness Of Breath/wheezing Albuterol/Ipratropium (Duoneb 3.0-0.5 Mg/3 Ml) 3 ml NEB QIDRT [facility] Last Admin: 05/10/18 23:10 Dose: Not Given Atropine Sulfate (Atropine 1%) 0 ml SL Q1H PRN PRN Reason: Congestion Carbidopa/Levodopa (Sinemet 25-100 Mg) 0.5 tab PO DAILY [facility] Last Admin: 05/10/18 09:17 Dose: Not Given Fluoxetine HCl (Prozac) 40 mg PO DAILY [facility] Last Admin: 05/10/18 09:17 Dose: Not Given Gabapentin (Neurontin) 600 mg PO BID [facility] Last Admin: 05/10/18 23:10 Dose: Not Given Haloperidol Lactate (Haldol 2 Mg/Ml Soln) 1 mg PO Q2H PRN PRN Reason: Agitation Lisinopril (Prinivil) 2.5 mg PO DAILY [facility] Last Admin: 05/10/18 09:17 Dose: Not Given Lorazepam (Ativan Oral Concentrate 1mg/0.5 Ml U/D) 0.5 mg BUCCAL Q2H PRN PRN Reason: Agitation Last Admin: 05/11/18 04:09 Dose: 0.5 mg Magnesium Hydroxide (Milk Of Magnesia) 30 ml PO Q12H PRN PRN Reason: Constipation Last Admin: 05/09/18 07:47 Dose: 30 ml Ondansetron HCl (Zofran) 4 mg IV Q4H PRN PRN Reason: Nausea/Vomiting Oxycodone HCl (Oxycodone) 5 - 10 mg PO Q4H PRN PRN Reason: Pain (moderate 4-6) Last Admin: 05/09/18 11:31 Dose: 10 mg Oxycodone HCl (Oxycodone Oral Concentrate 10mg/0.5 Ml U/D) 5 - 10 mg PO Q2H PRN PRN Reason: PAIN Last Admin: 05/11/18 05:24 Dose: 10 mg Pantoprazole Sodium (Protonix) 40 mg PO BIDAC [facility] Last Admin: 05/10/18 16:10 Dose: Not Given Polyethylene Glycol (Miralax) 17 gm PO DAILY PRN PRN Reason: Constipation Last Admin: 05/09/18 07:47 Dose: 17 gm Senna/Docusate Sodium (Senna Plus) 1 tab PO BID PRN PRN Reason: Constipation Sodium Chloride (Saline Flush) 10 ml FLUSH ASDIRECTED PRN PRN Reason: Keep Vein Open Discontinued Medications Amlodipine Besylate (Norvasc) 5 mg PO BID [facility] Last Admin: 05/08/18 12:43 Dose: Not Given Atropine Sulfate (Atropine 1%) 1 ml SL Q1H PRN PRN Reason: Congestion Last Admin: 05/11/18 05:23 Dose: 3 drop Dutasteride (Avodart) 0.5 mg PO DAILY [facility] Last Admin: 05/08/18 12:42 Dose: Not Given Enoxaparin Sodium (Lovenox) 30 mg SUBCUT Q24H [facility] Last Admin: 05/07/18 20:04 Dose: Not Given Lactated Ringer's (Ringers, Lactated) 1,000 mls @ 250 mls/hr IV ASDIRECTED [facility] Stop: 05/07/18 22:32 Lactated Ringer's (Ringers, Lactated) 1,000 mls @ 125 mls/hr IV ASDIRECTED [facility] Lactobacillus Rhamnosus (Culturelle) 1 cap PO BID [facility] Last Admin: 05/08/18 12:43 Dose: Not Given Naloxone HCl (Narcan) 0.2 mg IVPUSH ONETIME PRN PRN Reason: Oversedation Last Admin: 05/07/18 14:13 Dose: 0.2 mg Naloxone HCl (Narcan) 0.2 mg IVPUSH ONETIME ONE Stop: 05/07/18 15:45 Last Admin: 05/07/18 15:47 Dose: 0.2 mg Naloxone HCl (Narcan) 0.1 mg IVPUSH Q1H PRN PRN Reason: Oversedation Simvastatin (Zocor) 40 mg PO DAILY [facility] Last Admin: 05/08/18 12:44 Dose: Not Given Tamsulosin HCl (Flomax) 0.4 mg PO DAILY [facility] Last Admin: 05/08/18 12:43 Dose: Not Given Trospium (Sanctura) 20 mg PO BEDTIME [facility] Last Admin: 05/07/18 20:05 Dose: Not Given - Exam Quality Assessment: Reports: Urine Catheter
== END 2018-05-11 06:18 | disposition expired | DRG 189 ==
LOC: JP.ED 14:01 → JP.MS 15:49
PROVIDERS: ADMIT Hospitalist; ATTEND Hospitalist
DX: J96.22 Acute and chronic respiratory failure with hypercapnia (principal); I63.9 Cerebral infarction, unspecified; N17.9 Acute kidney failure, unspecified; G81.91 Hemiplegia, unspecified affecting right dominant side; Z51.5 Encounter for palliative care; J96.21 Acute and chronic respiratory failure with hypoxia; Z79.891 Long term (current) use of opiate analgesic; G20 Parkinson's disease; I12.9 Hypertensive chronic kidney disease with stage 1 through stage 4 chronic kidney disease, or unspecified chronic kidney disease; R41.89 Other symptoms and signs involving cognitive functions and awareness; N18.3 Chronic kidney disease, stage 3 (moderate); J44.9 Chronic obstructive pulmonary disease, unspecified; S82.409D Unspecified fracture of shaft of unspecified fibula, subsequent encounter for closed fracture with routine healing; I25.10 Atherosclerotic heart disease of native coronary artery without angina pectoris; E78.00 Pure hypercholesterolemia, unspecified; Z86.73 Personal history of transient ischemic attack (TIA), and cerebral infarction without residual deficits; N42.9 Disorder of prostate, unspecified; F32.9 Major depressive disorder, single episode, unspecified; F41.9 Anxiety disorder, unspecified; Z95.1 Presence of aortocoronary bypass graft; H91.90 Unspecified hearing loss, unspecified ear; Z96.659 Presence of unspecified artificial knee joint; Z88.1 Allergy status to other antibiotic agents; Z88.5 Allergy status to narcotic agent
CPT/HCPCS: 36415; 70450 ×2; 80053; 82803; 84484; 85025; 93005; 96374; 96376; 99285; J2310 ×2; 71046; 71046-26; 80305-QW; 94640; A9270-GY; J7620